=== PATIENT | female | born 2000 | race Caucasian/White ===

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

== ENCOUNTER 2021-07-20 07:35 | Outpatient (CLI) | payer BC, SELFPAY ==
--- NOTE | ~2021-07-20 | US_ITS ---
EXAMINATION: US right upper quadrant EXAM DATE: 07/20/2021 08:03 INDICATION: Right upper quadrant pain. TECHNIQUE: Multiple grayscale and Doppler images of the abdomen right upper quadrant were obtained (b y a technologist who performed the scan) and subsequently reviewed. Comparison is made to prior exami nation from 02/21/2018. FINDINGS: Pancreas obscured by bowel gas. The liver has normal echogenicity and contour. There are no focal l iver lesions identified. There is no evidence of intrahepatic biliary duct dilation. Portal venous flow was seen in the hepatopedal, normal direction and has normal Doppler waveform. No right-sided hydronephrosis. Common bile duct measures 6 mm, which is upper limits of normal. There is possible nonobstructing cho ledocholithiasis. The gallbladder wall is normal in thickness, with expected amount of distention. N o sonographic evidence of pericholecystic fluid. There is cholelithiasis. Technologist performing exam reports patient did not demonstrate sonographic Gómez's sign. Please note that this sign is le ss reliable in patients who have received pain medication. IMPRESSION: Cholelithiasis, possible choledocholithiasis. Common bile duct upper limits of normal. If symptoms persist, consider MRCP. Reviewed, dictated and finalized at location A. CUTTER IMPRESSION: Cholelithiasis, possible choledocholithiasis. Common bile duct uppe r limits of normal. If symptoms persist, consider MRCP.
== END 2021-07-20 07:36 | disposition home or self-care (01) ==
LOC: ANHIMG 07:37
PROVIDERS: PCP Family Medicine; Visit Provider Physician Assistant
DX: R10.11 Right upper quadrant pain (principal); K80.20 Calculus of gallbladder without cholecystitis without obstruction
CPT/HCPCS: 76705

== ENCOUNTER 2021-08-28 09:03 | Outpatient (CLI) | payer BC, SELFPAY ==
[2021-08-28 10:48] LABS: Basophils Percent Auto 0.1 % (0.2-1.2); Eosinophils Percent Auto 0.4 % (0-4.4); Hematocrit 37.7 % (37.0-47.0); Immature Granulocyte Absolute 0.02 K/mm3 (0.00-0.031); Immature Granulocyte Percent A 0.3 % (0-0.5); Lymphocytes Absolute Auto 1.81 K/mm3 (0.9-3.2); Lymphocytes Percent Auto 26.9 % (18.3-44.2); Mean Corpuscular HGB Conc 34.5 g/dl (32-36); Mean Corpuscular Volume 89.8 fl (80-100); Mean Platelet Volume 9.3 fl (7.4-10.4); Monocytes Absolute Auto 0.4 K/mm3 (0.1-0.6); Monocytes Percent Auto 5.3 % (2.6-8.5); Neutrophils Absolute Auto 4.5 K/mm3 (1.3-6.7); Platelet Count Result 359 k/mm3 (150-375); Red Cell Distribution Width 12.3 % (11.5-14.5); White Blood Count 6.7 K/mm3 (4.5-10.0)
[2021-08-28 10:58] LABS: Alanine Aminotransferase 55 U/L (4-35); Albumin Level 4.2 g/dL (3.5-5.1); Alkaline Phosphatase 81 U/L (38-126); Amylase 90 U/L (30-110); Anion Gap 9 mmol/L (8-16); Aspartate Amino Transferase 41 U/L (14-36); Bilirubin,Total 0.3 mg/dL (0.2-1.3); Blood Urea Nitrogen 7 mg/dL (7-17); Calcium 9.5 mg/dL (8.4-10.2); Carbon Dioxide 22 mmol/L (22-30); Chloride 105 mmol/L (98-107); Estimated Glomerular Filt Rate > 60; Glucose 100 mg/dL (65-110); Lipase 75 U/L (23-300); Potassium 4.1 mmol/L (3.4-5.0); Sodium 136 mmol/L (137-145)
== END 2021-08-28 09:04 | disposition home or self-care (01) ==
LOC: ANHSURGERY 09:07
PROVIDERS: PCP Family Medicine; Visit Provider Surgery
DX: Z01.818 Encounter for other preprocedural examination (principal); K80.10 Calculus of gallbladder with chronic cholecystitis without obstruction
CPT/HCPCS: 36415; 80053; 82150; 83690; 85025

== ENCOUNTER 2021-08-29 01:07 | Day surgery (SDC) | payer BC, SELFPAY ==
[2021-08-22 14:17] VITALS: BMI 33.3
--- NOTE | 2021-08-22 14:41 | PC.NURSE ---
Report to the Outpatient Waiting Room, entrance under the green pavilion located off [facility], at time 10:00 on date 08/29/21. OR Time: 12:00. - You will be asked a series of questions to screen for COVID 19 for your protection. - A mask is required within the hospital. - No visitors are allowed at this time. Preoperative COVID Testing Requirements: No COVID Test needed if: (proof is required; if not received patient will have Rapid Test prior to entry) - Patient has received COVID Vaccine at least 14 days prior to procedure date or - Patient has positive COVID test result within last 90 days of surgery date. COVID Test needed if above criteria is not met Patients may have clear liquids (water, carbonated beverages, clear teas, apple juice) until 3 hours prior to surgery (9:00) with a maximum of 20 ounces. - No food from midnight until time of surgery Take the following medications with a SIP of water the morning of surgery: CONTROL PILL, PAIN PILL (IF NEEDED) Medications to discontinue per physician: VITAMINS/SUPPLEMENTS Date to take last dose: 08/26/21 Please no make-up, nail filipino, hairspray, perfume, deodorant, or body powder the day of surgery. No jewelry (including any body piercings) or valuables the day of surgery, leave them at home. Please take a shower or bath the night before, or the morning of, surgery with an antibacterial soap. Wear comfortable, loose fitting clothing. HIBICLENS SHOWER - Jewelry must be removed prior to entering the operating room. Rings and piercings that are not removed may be cut off. - The hospital will not accept responsibility for valuables. - Please leave all valuables, including medications, at home the day of surgery. If you are going home after surgery, a licensed cdl dedicated truck driver must drive you home. - NO public transportation without another adult. - We recommend that an adult stay with you for 24 hours following discharge. - We also recommend that you do not drive, make important decision, drink alcoholic beverages, or take any drugs that were not prescribed by your health care provider for at least 24 hours after your discharge time. Follow any additional instructions given to you from your surgeon. Telephone instructions given to TEVIN SHIRLEY and asked if any additional questions and then verbalized understanding. Patient advised to call surgeon office or pre surgery nurse liaison [phone] if any additional questions.
[2021-08-29] VITALS (7 sets, daily range): BP systolic 106–122; BP diastolic 61–88; PULSE 73–86; RESP 14–18; TEMP 36.8–36.9; O2SAT 96–99
--- NOTE | 2021-08-29 08:29 | P.PNAN_ITS ---
Anes - Initial Pre Proc Eval Procedure: Operation Date: 08/29/21 12:00 Proposed Procedures p Laparoscopic Cholecystectomy Possible Intraoperative Cholangiogram, Possible Open - Carrillo Santillan MD Date/Time: 08/29/21 08:29 Surgeon: Carrillo Santillan MD Pre Op Diagnosis: chronic cholecystitis with cholelithiasis Patient Data Age: 21 Gender: F Height: 1.65 m Weight: 90.72 kg Allergies Allergy/AdvReac Type Severity Reaction Status Date / Time No Known Allergies Allergy Unknown Verified 08/29/21 10:14 Home Medications Medication Instructions Recorded Confirmed Type multivitamin 1 tablet PO DAILY 08/03/19 08/29/21 History hydrocodone 5 mg-acetaminophen 325 1 tablet PO Q6H PRN #12 tablet 08/03/21 08/29/21 Rx mg tablet ondansetron 8 mg PO DAILY PRN 08/22/21 08/29/21 History norethindrone 1 mg-ethinyl 1 tablet PO DAILY #84 tablet 08/29/21 08/29/21 Rx estradiol 20 mcg (24)-iron 75 mg (4) tablet Patient hx anesthesia problems: none Family hx anesthesia problems: none Results Review: All pre-operative results and documents have been reviewed as part of the pre-operative evaluation. [facility] Past Medical History Medical History History of concussion x2, frequent headaches Surgical History Surgical History History of tonsillectomy [place] teeth extracted Family History Family History Grandparent Hypertension Family history of malignant neoplasm of breast in first degree relative Social History Social History Smoking status: Never smoker Second hand tobacco smoke exposure: No Alcohol intake: never Substance use: never Substance use type: does not use Living arrangements: with family Gender identity (if verbalized by the patient): Female Spiritual care concerns: No Anes - Eval Final PreProcedure Day of Procedure 08/29/21 08:29 Patient weight: obese Heart: regular rate and rhythm Lungs: clear to auscultation and normal air movement Airway: Mallampati scale class II Neurological: alert and oriented Last oral intake: >/= 8 hours ASA classification: II Emergent: no Anesthetic plan: proceed Anesthesia type and monitoring: general ETT and standard monitoring Results Review: All pre-operative results and documents have been reviewed as part of the pre-operative evaluation. Informed Consent: The patient's anesthetic plan and its attendant risks and benefits were discussed with the patient/family/POA. Questions were solicited and answers provided to the satisfaction of the patient/family/POA.
[2021-08-29] MEDS: ACETAMINOPHEN 500 MG TABLET 1000 MG PO (10:18)
[2021-08-29] MEDS: LACTATED RINGERS 1,000 ML 30 ML IV CONT ×2 (10:44→14:03)
[2021-08-29] MEDS: KETOROLAC 15 MG/ML VIAL (*BKC) IV PUSH (10:45)
--- NOTE | 2021-08-29 11:58 | WPDHPUPDATE1 ---
History and Physical Update Update Date/Time: 08/29/21 11:58 History and Physical has been reviewed, including an updated exam of the patient. There are changes in the patient's condition. She had a short episode of RUQ pain last Fri after eating a cup cake. Risks, benefits, and alternatives have been discussed and questions answered. Patient agrees to proceed with procedure.
[2021-08-29] MEDS: ceFAZolin 2 GM/D5W 50 ML 2 GM/50 ML BAG IVPB (12:00)
[2021-08-29] MEDS: BUPIVACAINE/EPINEPHRINE 0.5% 30 ML VIAL INFILTRATE (12:26)
--- NOTE | 2021-08-29 14:00 | P.OP_ITS ---
Procedure Note - Detailed Date of Procedure 08/29/21 Pre-op Diagnosis chronic cholecystitis with cholelithiasis Post-op Diagnosis same Procedure Performed Laproscopic Cholecystectomy Surgeon Carrillo Santillan MD Finishing Range Operator Lesly ENGLAND. OR speech language pathologist assistant Anesthesia general Indications See office H& P. Patient has chronic cholecystitis with cholelithiasis and intermittent abdominal pain that lasts anywhere from 2 hours to 24 hours. Ultrasound showed gallstones and therefore was recommended that she consider having a laparoscopic cholecystectomy to remove the source of stones and possibly prevent further complications. Findings Normal appearing gallbladder but upon removal definitely palpable stones within it. These were also seen through the wall as we were compressing it to take it up and out through the umbilicus. Description of Procedure Patient was seen preoperatively in the holding area and risks, benefits and alternatives confirmed. Patient was taken to the operating room and general anesthesia was induced. A time out was then preformed with the surgery team confirming patient and site of surgery. The abdomen was prepped and draped in the usual sterile fashion. Incision was made just below the umbilicus with an 11 blade knife. I placed 2 stay sutures of O- Vicryl on either side of the mid- line fascia beneath the umbilicus and was then able to slide in the Gonzalez cannula through the fascial defect into the peritoneum. First under low flow and then under high flow the abdomen was insufflated with carbon dioxide never exceeding a pressure of 14. Three 5 mm trocars were then introduced under direct vision. The following trocars were introduced under direct vision: a 5 mm in the epigastrium and two 5 mm trocars along the right costal margin laterally in the subcostal area. There were not any adhesions to the underside of the gallbladder. I then carefully used the L- shaped cautery and the [place] dissector to dissect out the triangle of [place]. I then was able to dissect out both the cystic duct and cystic artery and identify a window of safety. The gall bladder was grasped and the cystic duct and artery were dissected free and clipped with an 5 mm endo-clip strategy specialist. The cystic duct and artery were clipped with use of 2 clips on the patient's side 1 on the gallbladder side utilizing a 5 mm endoclip-strategy specialist. The cystic duct was then transected. The cystic artery was also transected at this point. The gall bladder was removed using electrocautery and then removed from the abdomen using a large 10 mm grasper via the umbilical incision. The trocars were removed visualizing hemostasis and the remaining gas evacuated. The large trocar site at the umbilicus was closed with use of the 2 stay sutures of 0 Vicryl mentioned above and also a figure of 8 O-Vicryl suture. The 2 stay sutures mentioned above on either side of the fascia were also tied together to help approximate this midline fascia. Further local anesthetic was placed into each incision for postop pain control. The skin incisions were closed with subcuticular suture of 4-0 Monocryl. Surgical glue then was applied to all the incisions. Patient tolerated the procedure well was taken to the recovery room in good condition. Implants none Estimated Blood Loss 15 Packing No Pathology yes (Gallbladder) Complications No immediate complications Condition stable Disposition PACU
[2021-08-29] MEDS: fentaNYL CITRATE INJ (*CRX) 100 MCG/2 ML VIAL 25 MCG IV PUSH ×2 (14:15→14:20)
[2021-08-29] MEDS: ONDANSETRON INJ 4 MG/2 ML VIAL IV PUSH (14:33)
== END 2021-08-29 16:00 | disposition home or self-care (01) ==
PROVIDERS: PCP Family Medicine; Visit Provider Surgery
PROC: 0FT44ZZ Resection of Gallbladder, Percutaneous Endoscopic Approach (ICD-10-PCS; CPT 47562; principal; 2021-08-29 12:00)
DX: K80.10 Calculus of gallbladder with chronic cholecystitis without obstruction (principal); R10.11 Right upper quadrant pain; E66.9 Obesity, unspecified; Z68.37 Body mass index [BMI] 37.0-37.9, adult
CPT/HCPCS: 47562; 88304; A9270; J0330; J0690; J1100; J1885; J2250; J2405; J2704; J2710; J3010; J7030; J7120; Q9966

== ENCOUNTER 2021-12-11 09:13 | Outpatient (CLI) | payer BC, SELFPAY ==
--- NOTE | ~2021-12-11 | XR_ITS ---
EXAMINATION: XR finger 4th LT min 2V DATE: 12/11/2021 09:41 INDICATION: Left hand fourth digit deformity. TECHNIQUE: 4 views of left hand fourth digit were obtained. COMPARISON: Left hand fourth digit radiographs 03/04/2020 FINDINGS: Bone alignment is normal. No acute fracture. There is an old healed fracture deformity of f ourth distal phalanx. Joint spaces are normal. IMPRESSION: 1. Old healed fracture deformity of fourth distal phalanx. Reviewed, dictated and finalized at location A.
== END 2021-12-11 09:14 | disposition home or self-care (01) ==
PROVIDERS: PCP Family Medicine; Visit Provider Plastic Surgery
DX: S62.635S Displaced fracture of distal phalanx of left ring finger, sequela (principal)
CPT/HCPCS: 73140

== ENCOUNTER 2022-01-25 00:47 | Day surgery (SDC) | payer BC, SELFPAY ==
[2022-01-18 17:02] VITALS: BMI 33.3
--- NOTE | 2022-01-18 17:15 | SUR.PREOP ---
Report to the Outpatient Waiting Room, entrance under the green pavilion located off [facility], at time 0730 on date 01/25/2022. OR Time: 0930. - You and your visitor will be asked a series of questions to screen for COVID 19 for your protection. - Only one visitor is allowed at this time. - The patient visitor is requested to leave or wait in car when not with patient. - A mask is required within the hospital. Patients may have clear liquids (water, carbonated beverages, clear teas, apple juice) until 0630- 3 hours prior to surgery with a maximum of 20 ounces. - No food from midnight until time of surgery - Infants may have breast milk until 4 hours before surgery, infant formula 6 hours prior to surgery. - Children will be allowed to drink immediately following surgery. If applicable, please bring a bottle or sippy cup to assist with drinking. Juice, water, soda, and popsicles are readily available. For infants on formula, please bring formula the day of surgery. Pacifiers are allowed. Take the following medications with a SIP of water the morning of surgery: NA Medications to discontinue per physician Fish oil Date to take last dose 01/22/22 Please no make-up, nail vincentian, hairspray, perfume, deodorant, or body powder the day of surgery. No jewelry (including any body piercings) or valuables the day of surgery, leave them at home. Please take a shower or bath the night before, or the morning of, surgery with an antibacterial soap. Wear comfortable, loose fitting clothing. Children are encouraged to wear pajamas. - Jewelry must be removed prior to entering the operating room. Rings and piercings that are not removed may be cut off. - The hospital will not accept responsibility for valuables. - Please leave all valuables, including medications, at home the day of surgery. If you are going home after surgery, a licensed jinriksha driver must drive you home. - NO public transportation without another adult. - We recommend that an adult stay with you for 24 hours following discharge. - We also recommend that you do not drive, make important decision, drink alcoholic beverages, or take any drugs that were not prescribed by your health care provider for at least 24 hours after your discharge time. For Pediatric surgeries, we recommend two adults accompany the child home (only one inside the building at this time). Follow any additional instructions given to you from your surgeon. If you or anyone in your household have experienced Covid symptoms in the past week, please notify your surgeon or the nurse liaison at the phone number below for possible testing. Telephone instructions given to ____Patient and asked if any additional questions and then verbalized understanding. Patient advised to call surgeon office or pre surgery nurse liaison [phone] if any additional questions.
--- NOTE | ~2022-01-25 | XR_ITS ---
EXAMINATION: XR surgery orthopedic DATE: 01/25/2022 11:13 INDICATION: ORIF left fourth finger TECHNIQUE: 6 fluoroscopic images of the left fourth finger were obtained during procedure performed neal Toledo. Radiologist was not present for the imaging or procedure. The amount of fluoroscopy time used during this procedure was 0.3 minutes. COMPARISON: Radiographs dated 12/11/2021 FINDINGS: Initial image demonstrates a needle marking the site of an old healed fracture at the distal diaphysi s of the left fourth distal phalanx which is healed with mild apex dorsal angulation. Subsequent imag es demonstrate a closing wedge osteotomy along the dorsal margin of the healed fracture. Subsequent i mages demonstrate reduction of the osteotomy defect with now essentially normal alignment of the axis of the distal phalanx. The reduced osteotomy is fixed with a percutaneous K wire which extends from the tuft of the distal phalanx across the distal interphalangeal joint into the volar aspect of the h ead and neck of the middle phalanx. No new fractures identified. Joint spaces appear otherwise unrema rkable. IMPRESSION: 1. 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 See procedure note for further detail. Reviewed, dictated and finalized at location A. IMPRESSION: 1. Fluoroscopy utilized during closing wedge osteotomy site of a chronic nonuni juan pablo fracture of the fourth distal phalanx with essentially anatomic alignment o f the distal phalanx post reduction and percutaneous pin fixation. See procedur e note for further detail.
--- NOTE | 2022-01-25 07:08 | WPDHPUPDATE1 ---
History and Physical Update Update Date/Time: 01/25/22 07:08 History and Physical has been reviewed, including an updated exam of the patient. There are NO changes in the patient's condition. Risks, benefits, and alternatives have been discussed and questions answered. Patient agrees to proceed with procedure.
[2022-01-25 07:40] VITALS: BP 117/70; PULSE 88; RESP 18; TEMP 36.3; O2SAT 99
[2022-01-25] MEDS: LACTATED RINGERS 1,000 ML 30 ML IV CONT ×2 (08:10→11:24)
--- NOTE | 2022-01-25 09:21 | WPDANESEPPF ---
Anes - Initial Pre Proc Eval Procedure: Operation Date: 01/25/22 09:30 Proposed Procedures p Closing Wedge Osteotomy or [place] Re-Shaping of Left Fourth Distal Phalanx [place] - Sharan Toledo MD Date/Time: 01/25/22 09:21 Surgeon: Sharan Toledo MD Pre Op Diagnosis: Nail Deformity Left Ring Finger Patient Data Age: 21 Gender: F Height: 1.65 m Weight: 103.8 kg Last Vital Signs Temp 97.3 F L 01/25/22 07:40 Pulse 88 01/25/22 07:40 Resp 18 01/25/22 07:40 BP 117/70 01/25/22 07:40 Pulse Ox 99 01/25/22 07:40 O2 Del Method Room Air 01/25/22 07:40 Allergies Allergy/AdvReac Type Severity Reaction Status Date / Time No Known Allergies Allergy Unknown Verified 01/25/22 08:15 Home Medications Medication Instructions Recorded Confirmed Type norethindrone 1 mg-ethinyl 1 tablet PO DAILY #84 tabs 11/14/21 01/25/22 Rx estradiol 20 mcg (24)-iron 75 mg (4) tablet omega-3 fatty acids 1 cap PO DAILY 01/18/22 01/25/22 History Patient hx anesthesia problems: none Family hx anesthesia problems: none Results Review: All pre-operative results and documents have been reviewed as part of the pre-operative evaluation. [facility] Past Medical History Medical History History of concussion x2, frequent headaches Surgical History Surgical History History of tonsillectomy Hx laparoscopic cholecystectomy Lap brian with poss IOC 08/29/21 [place] teeth extracted Family History Family History Grandparent Hypertension Family history of malignant neoplasm of breast in first degree relative Social History Social History Smoking status: Never smoker Second hand tobacco smoke exposure: No Alcohol intake: never Substance use: never Substance use type: does not use Living arrangements: with family Gender identity (if verbalized by the patient): Female Spiritual care concerns: No Anes - Eval Final PreProcedure Day of Procedure 01/25/22 09:21 Patient weight: obese Heart: regular rate and rhythm Lungs: clear to auscultation Neurological: alert and oriented Last oral intake: >/= 8 hours ASA classification: II Emergent: no Anesthetic plan: proceed Anesthesia type and monitoring: general GIVS and standard monitoring Results Review: All pre-operative results and documents have been reviewed as part of the pre-operative evaluation. Informed Consent: The patient's anesthetic plan and its attendant risks and benefits were discussed with the patient/family/POA. Questions were solicited and answers provided to the satisfaction of the patient/family/POA.
[2022-01-25] MEDS: ceFAZolin 2 GM/D5W 50 ML 2 GM/50 ML BAG IVPB (09:30)
[2022-01-25] MEDS: BACITRACIN ZINC OINTMENT 0.9 GRAM PACKET 1 PACKET TOPICAL (11:15)
[2022-01-25 11:23] VITALS: BP 96/50; PULSE 89; RESP 16; TEMP 36.2; O2SAT 97
--- NOTE | 2022-01-25 11:42 | W.PM.PROC2 ---
Procedure Note - Detailed Date of Procedure 01/25/22 Pre-op Diagnosis Nail Deformity Left Ring Finger Post-op Diagnosis Other (Nail deformity of the left ring finger. 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 Closing wedge osteotomy of the distal phalanx left ring finger with internal fixation. 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 She was taken to the operating room where she was placed supine on the operating table. She was given IV sedation. The extremity was prepped and draped in usual fashion. The digit was blocked with 1% lidocaine with epinephrine. A ring tourniquet was placed on the finger. The nail was removed with the use of a Normanna elevator. The nail was placed in saline during the procedure until it was used later.The nail bed appeared to be in good condition generally. There was noted a diagonal wound near the lunula. This appeared to be part of the chronic condition. Both edges of the nail bed wound were adhered to the bone but with a slight step-off between the 2. It appeared that this may have been the origin of the chronic deformity. C-arm images were made to identify the location of the ventral curving malunion of the distal phalanx. A full length midline incision was made in the nail bed extending beyond the hyponychium and onto the tip. The nail bed was carefully elevated off the phalanx. Nylon retention sutures were placed on both sides of that. A 2 and half to 3 mm transverse wedge osteotomy was marked out. The oscillating saw was used to create the osteotomy. A complete transection was obtained allowing positioning of the distal fragment. Satisfactory angle of the osteotomy was obtained and a 0.035 in C wire was driven retrograde out the distal fragment and then proximally down the proximal fragment and across the distal interphalangeal joint. This provided excellent improvement in the contour of the distal phalanx. The reduction was stable and the pin was cut short beneath the skin the nail bed was repaired with 5 0 chromic suture. The nail plate was debrided and placed under the nail fold covering the length of the nail bed. A jefry-cross 4-0 nylon suture was placed to retain the in position. A small bandage was applied the tourniquet was released. Patient was transported from the operating room in stable condition. Estimated Blood Loss -5.0 Drains No Packing No Pathology None sent Complications No immediate complications Condition Stable Disposition Same day
[2022-01-25 11:50] VITALS: BP 107/69; PULSE 77; RESP 20
[2022-01-25 12:15] VITALS: BP 102/53; PULSE 62; RESP 20
== END 2022-01-25 12:20 | disposition home or self-care (01) ==
PROVIDERS: PCP Family Medicine; Visit Provider Plastic Surgery
PROC: (CPT 26567; principal; 2022-01-25 09:30)
DX: L60.8 Other nail disorders (principal); S62.63 Displaced fracture of distal phalanx of finger; W54.0XXD Bitten by dog, subsequent encounter; E66.9 Obesity, unspecified; Z68.38 Body mass index [BMI] 38.0-38.9, adult
CPT/HCPCS: 26567; 11730; A9270; C1713; J0690; J2250; J2704; J3010; J7120

== ENCOUNTER 2022-03-06 11:42 | Outpatient (CLI) | payer BC, SELFPAY ==
--- NOTE | ~2022-03-06 | XR_ITS ---
XR finger 4th LT min 2V DATE: 03/06/2022 12:03 INDICATION: Distal phalanx fracture TECHNIQUE: 3 views COMPARISON: 12/11/2021 left fourth finger FINDINGS: There is a transverse osteotomy at the neck of the distal phalanx, with K wire extending lo ngitudinally through the entire length of the distal phalanx, terminating at the anterior neck of the middle phalanx. IMPRESSION: K wire fixation at transverse osteotomy at the neck of distal phalanx Reviewed, dictated and finalized at location A. IMPRESSION: K wire fixation at transverse osteotomy at the neck of distal phala nx
== END 2022-03-06 11:43 | disposition home or self-care (01) ==
PROVIDERS: PCP Family Medicine; Visit Provider Plastic Surgery
DX: S62.635A Displaced fracture of distal phalanx of left ring finger, initial encounter for closed fracture (principal); X58.XXXA Exposure to other specified factors, initial encounter
CPT/HCPCS: 73140

== ENCOUNTER 2022-03-28 10:07 | Outpatient (CLI) | payer BC, SELFPAY ==
--- NOTE | ~2022-03-28 | XR_ITS ---
EXAM: XR finger 4th LT min 2V DATE: 03/28/2022 10:26 HISTORY: FX L RING DISTAL PHALANX;S/P CORRECTION OSTEOTOMY, F/U . COMPARISON: 03/06/2022. FINDINGS: Pin fixation of the left fourth distal phalangeal osteotomy and DIP. Subtle interval healin g change. Normal mineralization. No fracture or dislocation. No lytic or blastic lesion. Joint spaces are maintained. No erosion or periosteal change. Soft tissues within normal limits. IMPRESSION: Likely subtle interval healing change present in the left fourth distal phalangeal osteot carole. Reviewed, dictated and finalized at location K. IMPRESSION: Likely subtle interval healing change present in the left fourth di stal phalangeal osteotomy.
== END 2022-03-28 10:08 | disposition home or self-care (01) ==
PROVIDERS: PCP Family Medicine; Visit Provider Plastic Surgery
DX: S62.665A Nondisplaced fracture of distal phalanx of left ring finger, initial encounter for closed fracture (principal)
CPT/HCPCS: 73140

== ENCOUNTER 2022-04-19 11:19 | Outpatient (CLI) | payer BC, SELFPAY ==
--- NOTE | ~2022-04-19 | XR_ITS ---
EXAMINATION: XR finger 4th LT min 2V INDICATION: Fourth distal phalanx fracture follow-up TECHNIQUE: Four views of the left fourth finger are obtained. COMPARISON: 03/28/2022 FINDINGS: There is an unchanged percutaneous pin through an osteotomy of the fourth distal phalanx wh ich ends with its tip in the fourth middle phalanx. Alignment is unchanged. There is minimal calcifie d callus at the osteotomy site without significant change. The joint spaces are unremarkable IMPRESSION: 1. Percutaneously pinned osteotomy of the fourth distal phalanx without significant change. Reviewed, dictated and finalized at location A. IMPRESSION: 1. Percutaneously pinned osteotomy of the fourth distal phalanx without signifi cant change.
== END 2022-04-19 11:20 | disposition home or self-care (01) ==
PROVIDERS: PCP Family Medicine; Visit Provider Plastic Surgery
DX: S62.665D Nondisplaced fracture of distal phalanx of left ring finger, subsequent encounter for fracture with routine healing (principal); X58.XXXD Exposure to other specified factors, subsequent encounter
CPT/HCPCS: 73140

== ENCOUNTER 2022-05-17 11:18 | Outpatient (CLI) | payer BC, SELFPAY ==
--- NOTE | ~2022-05-17 | XR_ITS ---
EXAMINATION: XR finger 4th LT min 2V INDICATION: Left fourth finger fracture follow-up TECHNIQUE: Four views of the left fourth finger are obtained. COMPARISON: 04/19/2022 FINDINGS: An osteotomy is again noted in the fourth distal phalanx. Calcified callus at the fracture site is minimally changed. The percutaneous pin has been removed. The soft tissues are unremarkable. No additional osseous abnormality is identified. IMPRESSION: 1. Osteotomy of the fourth distal phalanx with interval removal of the percutaneous pin, otherwise no significant change. Reviewed, dictated and finalized at location A. IMPRESSION: 1. Osteotomy of the fourth distal phalanx with interval removal of the percutan eous pin, otherwise no significant change.
== END 2022-05-17 11:19 | disposition home or self-care (01) ==
PROVIDERS: PCP Family Medicine; Visit Provider Plastic Surgery
DX: S62.665D Nondisplaced fracture of distal phalanx of left ring finger, subsequent encounter for fracture with routine healing (principal); X58.XXXD Exposure to other specified factors, subsequent encounter
CPT/HCPCS: 73140

== ENCOUNTER 2022-08-16 10:32 | Outpatient (CLI) | payer BC, SELFPAY ==
[2022-08-16 11:20] LABS: Hematocrit 41.7 % (37.0-47.0); Mean Corpuscular HGB Conc 33.6 g/dl (32-36); Mean Corpuscular Hemoglobin 30.9 pg (26-34); Mean Corpuscular Volume 92.1 fl (80-100); Mean Platelet Volume 9.9 fl (7.4-10.4); Platelet Count Result 261 k/mm3 (150-375); Red Blood Count 4.53 M/mm3 (4.2-5.4); Red Cell Distribution Width 13.2 % (11.5-14.5); White Blood Count 9.8 K/mm3 (4.5-10.0)
== END 2022-08-16 10:33 | disposition home or self-care (01) ==
LOC: ANHLAB 10:34
PROVIDERS: PCP Physician Assistant; Visit Provider Nurse Practitioner
DX: K92.1 Melena (principal)
CPT/HCPCS: 36415; 85027

== ENCOUNTER 2022-09-21 01:19 | Day surgery (SDC) | payer BC, SELFPAY ==
[2022-09-05 12:20] VITALS: BMI 33.3
[2022-09-21 08:20] VITALS: BP 141/90; PULSE 89; RESP 18; TEMP 36.3; O2SAT 99; BMI 39.2
--- NOTE | 2022-09-21 08:33 | PM.HPGS ---
History of Present Illness History of Present Illness Consent: Risks, benefits, and alternatives have been discussed and questions answered. Patient agrees to proceed with procedure. Chief complaint: hematochezia Narrative: Lillian Kamara is a 22 year old female with intermittent rectal bleeding, never had colonoscopy Review of Systems Constitutional: Constitutional: Denies headache(s) and Denies weakness Eyes: Eyes: Denies blurry vision ENT: Reports Normal hearing present, Denies headache(s) and Denies neck pain Cardiovascular: Cardiovascular: Denies chest pain and Denies dyspnea Respiratory: Respiratory: Denies dyspnea Gastrointestinal: Gastrointestinal: Reports no additional gastrointestinal complaints Genitourinary: Genitourinary: Denies dysuria Musculoskeletal: Musculoskeletal: Denies neck pain Integumentary/Breasts: Skin/Breast: Denies dry skin Neurologic: Reports Normal hearing present, Denies headache(s) and Denies weakness Psychiatric: Psychiatric: Denies anxiety Endocrine: Endocrine: Denies change in body appearance Hematologic/Lymphatic: Hematologic/Lymphatic: Denies easy bleeding Allergic/Immunologic: Allergic/Immunologic: Denies urticaria PMFSH Past Medical History Medical History (Updated 09/21/22 @ 08:34 by Arpit Medina MD) Chronic diarrhea Hematochezia History of concussion x2, frequent headaches Rectal bleeding Surgical History Surgical History History of tonsillectomy Hx laparoscopic cholecystectomy Lap brian with poss IOC 08/29/21 [place] teeth extracted Family History Family History Grandparent Hypertension Family history of malignant neoplasm of breast in first degree relative Social History Social History Smoking status: Never smoker Second hand tobacco smoke exposure: No Alcohol intake: never Substance use: never Substance use type: does not use Lack of Transportation: No Lack of Food: Never True Current Housing: I Have Housing Concerned About Future Housing: No Difficulty Paying Gas/Electric Bills: No Difficulty Paying for Meds: No Currently Unemployed: Decline to Answer Education: Decline to Answer Difficulty w/ Childcare or Family Care: Decline to Answer Living arrangements: with family Gender identity (if verbalized by the patient): Female Spiritual care concerns: No Meds Home Medications and Allergies Home Medications Medication Instructions Recorded Confirmed Type norethindrone 1 mg-ethinyl 1 tablet PO DAILY #84 tabs 11/14/21 09/21/22 Rx estradiol 20 mcg (24)-iron 75 mg (4) tablet Allergies Allergy/AdvReac Type Severity Reaction Status Date / Time No Known Allergies Allergy Unknown Verified 09/21/22 08:28 Exam Const: General: comfortable and no acute distress HENMT: Face/Nose/Sinus: Normal nares present Eyes: General: appearance normal, both eyes and all related structures Neck: Neck: no JVD Resp: Auscultation: clear to auscultation bilaterally Cardio: Rate: regular rate Rhythm: regular rhythm GI: Inspection: non-distended GI Palp: Yes Soft to palpation Skin: General skin exam: normal color Neuro: General: gait normal Speech: normal speech Extrem: General: normal to inspection Psych: Mental Status: mental status grossly normal Assessment and Plan Assessment and plan (1) Rectal bleeding: Code(s): K62.5 - Hemorrhage of anus and rectum Status: Acute Assessment and Plan: colonoscopy, if we find internal hemorrhoids also will treat with IRC
[2022-09-21] MEDS: LACTATED RINGERS 1,000 ML 150 ML IV CONT (08:38)
--- NOTE | 2022-09-21 08:44 | P.PNAN_ITS ---
Anes - Initial Pre Proc Eval Procedure: Operation Date: 09/21/22 09:30 Proposed Procedures p Colonoscopy With Possible - Arpit Medina MD s [facility] Hemorrhoid Treatment - Arpit Medina MD Date/Time: 09/21/22 08:44 Surgeon: Arpit Medina MD Pre Op Diagnosis: hematochezia Patient Data Age: 22 Gender: F Height: 1.65 m Weight: 106.8 kg Last Vital Signs Temp 97.3 F L 09/21/22 08:20 Pulse 89 09/21/22 08:20 Resp 18 09/21/22 08:20 BP 141/90 H 09/21/22 08:20 Pulse Ox 99 09/21/22 08:20 O2 Del Method Room Air 09/21/22 08:20 Allergies Allergy/AdvReac Type Severity Reaction Status Date / Time No Known Allergies Allergy Unknown Verified 09/21/22 08:28 Home Medications Medication Instructions Recorded Confirmed Type norethindrone 1 mg-ethinyl 1 tablet PO DAILY #84 tabs 11/14/21 09/21/22 Rx estradiol 20 mcg (24)-iron 75 mg (4) tablet Patient hx anesthesia problems: none Family hx anesthesia problems: none Results Review: All pre-operative results and documents have been reviewed as part of the pre- operative evaluation. [facility] Past Medical History Medical History (Updated 09/21/22 @ 08:34 by Arpit Medina MD) Chronic diarrhea Hematochezia History of concussion x2, frequent headaches Rectal bleeding Surgical History Surgical History History of tonsillectomy Hx laparoscopic cholecystectomy Lap brian with poss [facility] 08/29/21 [place] teeth extracted Family History Family History Grandparent Hypertension Family history of malignant neoplasm of breast in first degree relative Social History Social History Smoking status: Never smoker Second hand tobacco smoke exposure: No Alcohol intake: never Substance use: never Substance use type: does not use Lack of Transportation: No Lack of Food: Never True Current Housing: I Have Housing Concerned About Future Housing: No Difficulty Paying Gas/Electric Bills: No Difficulty Paying for Meds: No Currently Unemployed: Decline to Answer Education: Decline to Answer Difficulty w/ Childcare or Family Care: Decline to Answer Living arrangements: with family Gender identity (if verbalized by the patient): Female Spiritual care concerns: No Anes - Eval Final PreProcedure Day of Procedure 09/21/22 08:44 Patient weight: obese Heart: regular rate and rhythm Lungs: clear to auscultation Airway: Mallampati scale class II Neurological: alert and oriented Last oral intake: >/= 8 hours ASA classification: II Emergent: no Anesthetic plan: proceed Anesthesia type and monitoring: general GIVS and standard monitoring Results Review: All pre-operative results and documents have been reviewed as part of the pre- operative evaluation. Informed Consent: The patient's anesthetic plan and its attendant risks and benefits were discussed with the patient/family/POA. Questions were solicited and answers provided to the satisfaction of the patient/family/POA.
[2022-09-21 09:00] VITALS: BP 106/72; PULSE 87; RESP 24; O2SAT 97
--- NOTE | 2022-09-21 09:00 | W.PM.PROC2 ---
Procedure Note - Detailed Date of Procedure 09/21/22 Pre-op Diagnosis hematochezia Post-op Diagnosis Same Procedure Performed IRC of internal hemorrhoids Surgeon Arpit Medina MD Anesthesia MAC (patient also had a colonoscopy) Description of Procedure found grade II internal hemorrhoids after using anoscopy, no bleeding, no fissures. Then I introduced IRC probe and hemorrhoids treated 1.5 seconds x5 Complications No immediate complications Condition Stable
[2022-09-21 09:10] VITALS: BP 111/75; PULSE 85; RESP 20; O2SAT 99
[2022-09-21 09:20] VITALS: BP 124/70; PULSE 87; RESP 20; O2SAT 99
--- NOTE | 2022-09-21 09:31 | SUR.PHASEII ---
Patient delayed in discharge due to mother also having a procedure done with Dr. Howard today and they have the same drivers.
== END 2022-09-21 10:20 | disposition home or self-care (01) ==
PROVIDERS: PCP Physician Assistant; Visit Provider Internal Medicine Gastroenterology
PROC: 0DJD8ZZ Inspection of Lower Intestinal Tract, Via Natural or Artificial Opening Endoscopic (ICD-10-PCS; CPT 45378; principal; 2022-09-21 09:30)
PROC: (CPT 46930; 2022-09-21 09:30)
DX: K64.8 Other hemorrhoids (principal); E66.9 Obesity, unspecified; Z68.39 Body mass index [BMI] 39.0-39.9, adult
CPT/HCPCS: 46930; 45378; J2704; J7120

== ENCOUNTER 2024-12-03 08:53 | Emergency (ER) | payer BC, SELFPAY ==
--- NOTE | ~2024-12-03 | XR_ITS ---
Clinical Indication: Abdominal pain PA and lateral views of the chest: Comparison: 11/22/2022 Findings: The lungs are clear, without evidence of focal consolidation or pleural effusion. Cardiome diastinal silhouette is within normal limits. Bones and soft tissues are unremarkable. Impression: Normal chest. Reviewed, dictated and finalized at location . Impression: Normal chest.
--- NOTE | ~2024-12-03 | CT_ITS ---
EXAMINATION: CT abdomen pelvis w con DATE: 12/03/2024 09:58 INDICATION: Right upper quadrant abdominal pain. TECHNIQUE: Computed tomography (CT) of the abdomen and pelvis was performed with 100 mL Omnipaque-350 intravenous contrast. Automated exposure control and iterative reconstruction technique were employe d. The dose-length product was 392.05 mGy-cm. COMPARISON: None FINDINGS: Lung bases are clear. Heart size is normal. No pericardial or pleural effusion. Cholecystectomy clips the gallbladder fossa. Liver, spleen, pancreas, bilateral adrenal glands and kidneys are normal. Sma ll diverticulum along the descending colon without adjacent inflammatory stranding to suggest acute c olitis. Small bowel and appendix are normal. Bladder is normal. Anteverted uterus and bilateral adnex a are unremarkable. No free intraperitoneal gas or fluid. No pathologically enlarged abdominal or pel jag lymphadenopathy. Slight thoracolumbar dextrocurvature with mild thoracic spondylosis. IMPRESSION: 1. No acute intra-abdominal/pelvic process. Reviewed, dictated and finalized at location A.
[2024-12-03 08:56] VITALS: BP 122/70; PULSE 105; RESP 16; TEMP 36.8; O2SAT 100
--- OUTSIDE RECORDS SUMMARY | 2024-12-03 08:57 | XMS_ITS | Clinical Summary ---
Author Organization [facility] Address [facility] [place] [address] Care Team Providers Care Assistant Professor Of Art Name Role Phone Unavailable Primary Care Provider Unavailabl e Social History Tobacco Use Types Packs/Day Years Used Date Smoking Tobacco: Never Assessed Comments Unknown Sex and Gender Information Value Date Recorded Sex Assigned at Not on file Legal Sex Female 5:18 PM CDT Gender Identity Not on file Sexual Orientation Not on file Plan of Treatment Health Maintenance Due Date Last Done Comments Cervical Cancer Screening Pa p Smear (Age 21 to 29) Every 3 Years 2001 Cervical Cancer Screening 2001 Annual Physical 2004 HPV Vaccines (1 - 3-dose series) 2016 Meningococcal B Vaccine (1 o f 2 - Standard) 2017 Hepatitis C 2019 DTaP, Tdap and Td Vaccines ( 1 - Tdap) 2020 Hepatitis B Vaccines (1 of 3 - 19+ 3-dose series) 2020 COVID-19 Vaccine (1 - 2023-2 5 season) 2024 Meningococcal Vaccine Aged Out No caprice nicol eligible based on patient's age to complete this topic Pneumococcal Vaccine: Pediat rics (0 to 5 Years) and At-Risk Patients (6 to 49 Years) Aged Out No longer eligible b ased on patient's age to complete this topic RSV Immunizations Under 20 Months Aged Out No longer eligible based on patient's age to complete this topic
--- OUTSIDE RECORDS SUMMARY | 2024-12-03 08:57 | XMS_ITS | Referral Summary ---
Author Organization [facility] [address] Address [address] [place] [id number] Care Team Providers Care Shell Machine Operator Name Role Phone Unknown, Notinfile Primary Care Provider Unavail able Allergies No known active allergies Medications Blisovi 24 Fe 1 mg-20 mcg (24)/75 mg (4) per tablet Take 1 tablet by mouth daily 05/12/2022 Active docusate sodium (COLACE) 100 mg capsule docusate sodium 100 mg capsule TAKE 1 CAPSULE BY MOUTH EVERY DAY Active traMADoL (ULTRAM) 50 mg tablet tramadol 50 mg tablet TAKE 1 TABLET BY MOUTH EVERY 8 HOURS NEEDED Active triamcinolone (KENALOG) 0.1 % cream APPLY THIN COAT TO AFFECTED AREA TWICE A DAY 10/12/2022 Active Active Problems Problem Noted Date Diagnosed Date Right upper quadrant abdominal pain 04/17/2016 Overview (11/01/2017): Description: --rule out pancreatitis or cholelithiasis. Most likely musculoskeletal pain. Consider acid peptic disease or NSAID induced gastritis. Consider duodenitis. 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 Gender Identity Not on file Sexual Orientation Not on file Last Filed Vital Signs Vital Sign Reading Time Taken Comments Blood Pressure 114/78 07/10/2024 4:01 PM FIRE EXTINGUISHER SPRINKLER INSPECTOR Pulse 90 07/10/2024 4:01 PM FIRE EXTINGUISHER SPRINKLER INSPECTOR Temperature 36.6 C (97.9 F) 07/10/2024 4:01 PM FIRE EXTINGUISHER SPRINKLER INSPECTOR Respiratory Rate 20 07/10/2024 4:01 PM FIRE EXTINGUISHER SPRINKLER INSPECTOR Oxygen Saturation 98% 07/10/2024 4:01 PM FIRE EXTINGUISHER SPRINKLER INSPECTOR Inhaled Oxygen Concentration - - Weight 76.2 kg (168 lb) 07/10/2024 4:01 PM FIRE EXTINGUISHER SPRINKLER INSPECTOR Height 165.1 cm (5' 5 ) 07/27/2022 2:10 PM FIRE EXTINGUISHER SPRINKLER INSPECTOR Body Mass Index 27.96 07/27/2022 2:10 PM FIRE EXTINGUISHER SPRINKLER INSPECTOR Plan of Treatment Not on file Insurance [email or web address] [place] [email or web address] [place] [facility] Care Teams Shell Machine Operator Relationship Specialty Start Date End Date Unknown, Notinfile PCP - General 07/10/24
--- OUTSIDE RECORDS SUMMARY | 2024-12-03 08:57 | XMS_ITS | Clinical Summary ---
Author Organization [facility] [address] [place] Address [address] [place] [id number] Care Team Providers Care Carton Filler Name Role Phone Unknown, Notinfile Primary Care [...] NSAID induced gastritis. Consider duodenitis. Vomiting 04/17/2016 Family History Medical History Relation Name Comments Cholelithiasis Mother Gallstones - (Added by TW Conv) Relation Name Status Comments Mother Social History Tobacco Use Types Packs/Day Years Used Date Smoking Tobacco: Never Tobacco Cessation:Counseling Given: Not Answered Comments Unknown Sex and Gender Information Value Date Recorded Sex Assigned at Not on file Legal Sex Female 6:03 AM REGISTERED APPRAISER Gender Identity Not on file Sexual Orientation Not on file Obstetrics History Last Filed Vital Signs Vital Sign Reading Time Taken Comments Blood Pressure 114/78 07/10/2024 4:01 PM REGISTERED APPRAISER Pulse 90 07/10/2024 4:01 PM REGISTERED APPRAISER Temperature 36.6 C (97.9 F) 07/10/2024 4:01 PM REGISTERED APPRAISER Respiratory Rate 20 07/10/2024 4:01 PM REGISTERED APPRAISER Oxygen Saturation 98% 07/10/2024 4:01 PM REGISTERED APPRAISER Inhaled Oxygen Concentration - - Weight 76.2 kg (168 lb) 07/10/2024 4:01 PM REGISTERED APPRAISER Height 165.1 cm (5' 5 ) 07/27/2022 2:10 PM REGISTERED APPRAISER Body Mass Index 27.96 07/27/2022 2:10 PM REGISTERED APPRAISER Plan of Treatment Health Maintenance Due Date Last Done Comments Cervical Cancer Screening 2001 Depression Screening 2001 Hepatitis C Screening 2001 Meningococcal B Vaccine (1 o f 2 - Standard) 2017 Regular Well Visit/Exam 18-64 2019 DTaP/Tdap/Td Vaccine (7 - Td or Tdap) 03/02/2023 03/02/2013, 10/21/2006, 10/26/2002, Additional history exists Covid-19 Vaccine (2 - 2023-2 5 season) 2024 10/29/2020 Influenza Vaccine (#1) 2024 04/27/2022 Hepatitis B Screening Completed 02/05/2002 , 2001, 2001 Pneumococcal vaccine <65 Completed 003, 2001, 2001, Additional history exists Varicella Vaccines Completed 01/21/2008, 04/20/2002 HPV Vaccines Completed 10/27/2013, 04/21, 03/02/2013 Insurance [employer] [facility] [employer] [place] [employer] [place] Care Teams Carton Filler Relationship Specialty Start Date End Date Unknown, Notinfile PCP - General 07/10/24
--- OUTSIDE RECORDS SUMMARY | 2024-12-03 08:57 | XMS_ITS | Data Portability ---
Author Organization [place] - [facility], Main Office Address [address] [place] [address] Care Team Providers Care Chef German Name Role Phone SEVEN PATEL Primary Care Provider SEVEN PATEL Referring Provider [phone] Assessment No assessment recorded. Plan of Treatment Reminders Order Date Submit Date Provider Last Modified By Organization Details Last Modified Time Details Appointments None recorded. Lab HbA1c (hemoglobin A1c), blood 2023 024 [facility], [address] , [place], [address], 4 05:50:14 CBC w/ auto diff 2023 024 [facility], [address], [place], [address], 4 05:50:13 TSH, serum or plasma 2023 024 [facility], [address], [place], [address], 4 05:50:14 lipid panel, serum 2023 024 [facility], [address], [place], [address], 4 05:50:12 CMP, serum or plasma 2023 024 [facility], [address], [place], [address], 4 05:50:12 lipid panel, serum 2022 023 [facility], [address], [place], [address], 3 06:54:54 CMP, serum or plasma 2022 023 [facility], [address], [place], [address], 3 06:54:56 HbA1c (hemoglobin A1c), blood 2022 023 [facility], [address], [place], [address], 3 06:54:57 TSH, serum, reflex free T4 2022 023 [email or web address], [address], [place], [address], 3 09:26:56 Referral refining engineer referral - Please call patient to schedule an appointment . Thank you. 2023 024 [email or web address] Moses CHÁVEZM, [address] [facility], [address], [place], [address], 4 09:00:17 Procedures None recorded. Surgeries None recorded. Imaging None recorded. Medication Orders Mounjaro 7.5 mg/0.5 mL subcutaneou s pen injector 2023 024 [facility] #[id number], [address], [place], [address], 4 10:11:20 amoxicillin 875 mg-potassiu m clavulanate 125 mg tablet 2023 024 [facility] #[id number], [address], [place], [address], 4 10:11:21 cetirizine 10 mg tablet 2023 024 [id number], [address], [place], [address], 4 10:11:20 Mounjaro 5 mg/0.5 mL subcutaneou s pen injector 2022 023 [id number], [address], [place], [address], 4 17:38:01 Patient TargetsNo targets recorded. Patient InstructionsNo instructions recorded. 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 Thank you. Referring Physician: Seven Patel, Family Medicine, Encounter Date: 04/01/2024 Results Created Date Observation Date Name Description Value Unit Range Abnormal Flag Note LastModifiedBy Organization Detail LastModifiedTime 12/21/1912/20/2022 PPD (yolanda fied prote in deriv ative ), skin test TB negati ve Not Available [facility] [address], [place], [address], 12/18/2022 09:33:24 06/17/20 23 06/18/2023 LIPID PANEL , STAND RNADEE cholesterol, total 230 mg/dL <200 high Not Available [facility] [address] [address] [place], [address], 06/18/2023 06:54:54 06/17/20 23 06/18/2023 LIPID PANEL , STAND RANDEE HDL cholesterol 35 mg/dL > or = 50 low Not Available [facility] [address] [place], [address], 06/18/2023 06:54:54 06/17/20 23 06/18/2023 LIPID PANEL , STAND RANDEE triglyceride s 732 mg/dL <150 high If a non-f astin g speci men was colle cted, consi radha repea t trigl yceri de testi ng on a fasti ng speci men if clini liliane indic ated. Moses martinez et al. J. of Clin. Lipid ol. 2015; 9:129 -169. There is incre ased risk of pancr eatit is when the trigl yceri de ramy ntrat ion is very high (> or = 500 mg/dL , espec ially if > or = 1000 mg/dL ). Moses martinez et al. J. of Clin. Lipid ol. 2015; 9:129 -169. Not Available [facility] [address] [address] [place], [address], 06/18/2023 06:54:54 06/17/20 23 06/18/2023 LIPID PANEL , STAND RANDEE LDL-choleste rol mg/dL _(junior c) LDL brian stero l not calcu lated . Trigl yceri de level s great er than 400 mg/dL inval idate calcu lated LDL resul ts. Refer ence range : <100 Jenny able range <100 mg/dL for prima ry preve ntion ; <70 mg/dL for patie nts with CHD or diabe tic patie nts with > or = 2 CHD risk facto rs. LDL-C is now calcu lated using the Thuy n-Hop kins calcu yohana n, which is a valid ated novel blayne saleh kendall r accur acy than the Fried joo equat ion in the estim ation of LDL-C . Thuy mitchell SS et al. HAN. 2013; 310(1 9): 2061- 2068 (http ://ed ucati on.Qu Lore luu 2080 Medias. com/f aq/FA Q164) Not Available [facility] [address] [address] [address], [place], [address], 06/18/2023 06:54:54 06/17/2006/18/2023 LIPID PANEL , STAND RANDEE chol/HDLC ratio 6.6 (calc ) <5.0 high Not Available [facility] [address] [address] [place], [address], 06/18/2023 06:54:54 06/17/20 23 06/18/2023 LIPID PANEL , STAND RANDEE non HDL cholesterol 195 mg/dL _(junior c) <130 high For patie nts with diabe zee plus 1 major ASCVD risk facto r, treat ing to a non-H DL-C goal of <100 mg/dL (LDL- C of <70 mg/dL ) is kassi salinas optio n. Not Available [address], [address], 06/18/2023 06:54:54 06/17/2006/18/2023 COMPR EHENS JULIANNA METAB OLIC PANEL glucose 99 mg/dL 65-139 normal Non-f astin g refer ence inter alex Not Available [address], [address], 06/18/2023 06:54:56 06/17/2006/18/2023 COMPR EHENS JULIANNA METAB OLIC PANEL urea nitrogen (BUN) 8 mg/dL 7-25 normal Not Available [address] [place], [address], 06/18/2023 06:54:56 06/17/20 23 06/18/2023 COMPR EHENS JULIANNA METAB OLIC PANEL creatinine 0.66 mg/dL 0.50-0 .96 normal Not Available [address], [address], 06/18/2023 06:54:56 06/17/20 23 06/18/2023 COMPR EHENS JULIANNA METAB OLIC PANEL eGFR 127 mL/mi n/1.7 3m2 > or = 60 normal Not Available [address], [address], 06/18/2023 06:54:56 06/17/20 23 06/18/2023 COMPR EHENS JULIANNA METAB OLIC PANEL BUN/creatini ne ratio SEE NOTE: (calc ) 6-22 Not Repor juan pablo: BUN and Creat inine are withi n refer ence range . Not Available [address], [address], 06/18/2023 06:54:56 06/17/2006/18/2023 COMPR EHENS JULIANNA METAB OLIC PANEL sodium 137 mmol/ L 135-14 6 normal Not Available [address], [address], 06/18/2023 06:54:56 06/17/2006/18/2023 COMPR EHENS JULIANNA METAB OLIC PANEL potassium 4.2 mmol/ L 3.5-5. 3 normal Not Available [address], [address], 06/18/2023 06:54:56 06/17/2006/18/2023 COMPR EHENS JULIANNA METAB OLIC PANEL chloride 105 mmol/ L 98-110 normal Not Available [address], [address], 06/18/2023 06:54:56 06/17/2006/18/2023 COMPR EHENS JULIANNA METAB OLIC PANEL carbon dioxide 25 mmol/ L 20-32 normal Not Available [address], [address], 06/18/2023 06:54:56 06/17/2006/18/2023 COMPR EHENS JULIANNA METAB OLIC PANEL calcium 9.2 mg/dL 8.6-10 .2 normal Not Available [address], [address], 06/18/2023 06:54:56 06/17/2006/18/2023 COMPR EHENS JULIANNA METAB OLIC PANEL protein, total 7.1 g/dL 6.1-8. 1 normal Not Available [address] [place], [address], 06/18/2023 06:54:56 06/17/2006/18/2023 COMPR EHENS JULIANNA METAB OLIC PANEL albumin 4.3 g/dL 3.6-5. 1 normal Not Available [address], [address], 06/18/2023 06:54:56 06/17/20 23 06/18/2023 COMPR EHENS JULIANNA METAB OLIC PANEL globulin 2.8 g/dL_ (calc ) 1.9-3. 7 normal Not Available [address], [address], 06/18/2023 06:54:56 06/17/2006/18/2023 COMPR EHENS JULINANA METAB OLIC PANEL albumin/glob ulin ratio 1.5 (calc ) 1.0-2. 5 normal Not Available [address], [address], 06/18/2023 06:54:56 06/17/20 23 06/18/2023 COMPR EHENS JULIANNA METAB OLIC PANEL bilirubin, total 0.2 mg/dL 0.2-1. 2 normal Not Available [address], [address], 06/18/2023 06:54:56 06/17/20 23 06/18/2023 COMPR EHENS JULIANNA METAB OLIC PANEL alkaline phosphatase 56 U/L 31-125 normal Not Available [address], [address], 06/18/2023 06:54:56 06/17/20 23 06/18/2023 COMPR EHENS JULIANNA METAB OLIC PANEL AST 22 U/L 10-30 normal Not Available [address], [address], 06/18/2023 06:54:56 06/17/20 23 06/18/2023 COMPR EHENS JULIANNA METAB OLIC PANEL ALT 30 U/L 6-29 high Not Available [address] [place], [address], 06/18/2023 06:54:56 06/17/20 23 06/18/2023 TSH W/REF CHINMAY TO FT4 TSH w/reflex to FT4 2.41 mIU/L normal Refer ence Range > or = 20 Years 0.40- 4.50 Pregn josé Range s First trime ster 0.26- 2.66 Secon d trime ster 0.55- 2.73 Third trime ster 0.43- 2.91 Not Available [facility] [address] [address] [place], [address], 06/18/2023 06:54:57 06/17/20 23 06/18/2023 HEMOG LOBIN A1C hemoglobin A1C 5.1 %_of_ total _HGB <5.7 normal For the purpo se of scree stephen for the prese nce of diabe zee: <5.7% Consi stent with the absen ce of diabe zee 5.7-6 .4% Consi stent with incre ased risk for diabe zee (pred iabet es) > or =6.5% Consi stent with diabe zee This assay resul t is consi stent with a decre ased risk of diabe zee. Curre ntly, no conse nsus exist s ayazar therese use of hemog lobin A1c for diagn osis of diabe zee in child jonh. Accor ding to Ameri can Diabe zee Assoc iatio n (ADA) guide lines , hemog lobin A1c <7.0% repre sents optim al contr ol in non-p regna nt diabe tic patie nts. Diffe rent metri cs may apply to speci fic patie nt popul ation s. Stand ards of Medic al Care in Diabe zee(A DA). Not Available [facility] [address] [address] [place], [address], 06/18/2023 06:54:57 04/03/20 24 04/04/2024 LIPID PANEL , STAND RANDEE cholesterol, total 231 mg/dL <200 high Not Available [facility] [address] [address] [place], [address], 04/04/2024 05:50:11 04/03/20 24 04/04/2024 LIPID PANEL , STAND RANDEE HDL cholesterol 52 mg/dL > or = 50 normal Not Available [facility] [address] [address] [place], [address], 04/04/2024 05:50:11 04/03/20 24 04/04/2024 LIPID PANEL , STAND RANDEE triglyceride s 132 mg/dL <150 normal Not Available [facility] [address] [address] [place], [address], 04/04/2024 05:50:11 04/03/20 24 04/04/2024 LIPID PANEL , STAND RANDEE LDL-choleste rol 153 mg/dL _(junior c) high Refer ence range : <100 Jenny able range <100 mg/dL for prima ry preve ntion ; <70 mg/dL for patie nts with CHD or diabe tic patie nts with > or = 2 CHD risk facto rs. LDL-C is now calcu lated using the Thuy n-Hop kins dulceu yohana n, which is a valid ated novel blayne mao than the Fried joo equat ion in the estim ation of LDL-C . Thuy mitchell SS et al. HAN. 2013; 310(1 9): 2061- 2068 (http ://ed ucati on.Shiela blacks. com/f aq/FA Q164) Not Available [facility] [address] [address] [place], [address], 04/04/2024 05:50:11 04/03/20 24 04/04/2024 LIPID PANEL , STAND RANDEE chol/HDLC ratio 4.4 (calc ) <5.0 normal Not Available [facility] [address] [address] [place], [address], 04/04/2024 05:50:11 04/03/20 24 04/04/2024 LIPID PANEL , STAND RANDEE non HDL cholesterol 179 mg/dL _(junior c) <130 high For patie nts with diabe zee plus 1 major ASCVD risk facto r, treat ing to a non-H DL-C goal of <100 mg/dL (LDL- C of <70 mg/dL ) is kassi salinas optio n. Not Available [address] [address] [place], [address], 04/04/2024 05:50:11 04/03/20 24 04/04/2024 COMPR EHENS JULIANNA METAB OLIC PANEL glucose 82 mg/dL 65-99 normal Fasti ng refer ence inter alex Not Available [address] [address] [place], [address], 04/04/2024 05:50:12 04/03/20 24 04/04/2024 COMPR EHENS JULIANNA METAB OLIC PANEL urea nitrogen (BUN) 7 mg/dL 7-25 normal Not Available [address] [address] [place], [address], 04/04/2024 05:50:12 04/03/20 24 04/04/2024 COMPR EHENS JULIANNA METAB OLIC PANEL creatinine 0.68 mg/dL 0.50-0 .96 normal Not Available [address] [address] [place], [address], 04/04/2024 05:50:12 04/03/20 24 04/04/2024 COMPR EHENS JULIANNA METAB OLIC PANEL eGFR 126 mL/mi n/1.7 3m2 > or = 60 normal Not Available [address], [address], 04/04/2024 05:50:12 04/03/20 24 04/04/2024 COMPR EHENS JULIANNA METAB OLIC PANEL BUN/creatini ne ratio SEE NOTE: (calc ) 6-22 Not Repor juan pablo: BUN and Creat inine are withi n refer ence range . Not Available [address], [address], 04/04/2024 05:50:12 04/03/20 24 04/04/2024 COMPR EHENS JULIANNA METAB OLIC PANEL sodium 138 mmol/ L 135-14 6 normal Not Available [address], [address], 04/04/2024 05:50:12 04/03/20 24 04/04/2024 COMPR EHENS JULIANNA METAB OLIC PANEL potassium 4.6 mmol/ L 3.5-5. 3 normal Not Available [address], [address], 04/04/2024 05:50:12 04/03/2004/04/2024 COMPR EHENS JULIANNA METAB OLIC PANEL chloride 106 mmol/ L 98-110 normal Not Available [address], [address], 04/04/2024 05:50:12 04/03/20 24 04/04/2024 COMPR EHENS JULIANNA METAB OLIC PANEL carbon dioxide 23 mmol/ L 20-32 normal Not Available [address], [address], 04/04/2024 05:50:12 04/03/20 24 04/04/2024 COMPR EHENS JULIANNA METAB OLIC PANEL calcium 9.5 mg/dL 8.6-10 .2 normal Not Available [address], [address], 04/04/2024 05:50:12 04/03/2004/04/2024 COMPR EHENS JULIANNA METAB OLIC PANEL protein, total 7.2 g/dL 6.1-8. 1 normal Not Available [address], [address], 04/04/2024 05:50:12 04/03/20 24 04/04/2024 COMPR EHENS JULIANNA METAB OLIC PANEL albumin 4.5 g/dL 3.6-5. 1 normal Not Available [address], [address], 04/04/2024 05:50:12 04/03/20 24 04/04/2024 COMPR EHENS JULIANNA METAB OLIC PANEL globulin 2.7 g/dL_ (calc ) 1.9-3. 7 normal Not Available [address], [address], 04/04/2024 05:50:12 04/03/20 24 04/04/2024 COMPR EHENS JULIANNA METAB OLIC PANEL albumin/glob ulin ratio 1.7 (calc ) 1.0-2. 5 normal Not Available [address], [address], 04/04/2024 05:50:12 04/03/20 24 04/04/2024 COMPR EHENS JULIANNA METAB OLIC PANEL bilirubin, total 0.8 mg/dL 0.2-1. 2 normal Not Available [address], [address], 04/04/2024 05:50:12 04/03/20 24 04/04/2024 COMPR EHENS JULIANNA METAB OLIC PANEL alkaline phosphatase 81 U/L 31-125 normal Not Available [address], [address], 04/04/2024 05:50:12 04/03/20 24 04/04/2024 COMPR EHENS JULIANNA METAB OLIC PANEL AST 35 U/L 10-30 high Not Available [address], [address], 04/04/2024 05:50:12 04/03/20 24 04/04/2024 COMPR EHENS JULIANNA METAB OLIC PANEL ALT 53 U/L 6-29 high Not Available [address] [place], [address], 04/04/2024 05:50:12 04/03/2004/04/2024 CBC (INCL UDES DIFF/ PLT) white blood cell count 6.2 thous and/u L 3.8-10 .8 normal Not Available [address], [address], 04/04/2024 05:50:13 04/03/2004/04/2024 CBC (INCL UDES DIFF/ PLT) red blood cell count 4.30 timothy on/uL 3.80-5 .10 normal Not Available [address], [address], 04/04/2024 05:50:13 04/03/2004/04/2024 CBC (INCL UDES DIFF/ PLT) hemoglobin 13.6 g/dL 11.7-1 5.5 normal Not Available [address], [address], 04/04/2024 05:50:13 04/03/2004/04/2024 CBC (INCL UDES DIFF/ PLT) hematocrit 41.4 % 35.0-4 5.0 normal Not Available [address], [address], 04/04/2024 05:50:13 04/03/2004/04/2024 CBC (INCL UDES DIFF/ PLT) MCV 96.3 fL 80.0-1 00.0 normal Not Available [facility] [address], [address], 04/04/2024 05:50:13 04/03/2004/04/2024 CBC (INCL UDES DIFF/ PLT) MCH 31.6 pg 27.0-3 3.0 normal Not Available [facility] [address], [address], 04/04/2024 05:50:13 04/03/20 24 04/04/2024 CBC (INCL UDES DIFF/ PLT) MCHC 32.9 g/dL 32.0-3 6.0 normal Not Available [address], [address], 04/04/2024 05:50:13 04/03/20 24 04/04/2024 CBC (INCL UDES DIFF/ PLT) RDW 12.4 % 11.0-1 5.0 normal Not Available [address], [address], 04/04/2024 05:50:13 04/03/2004/04/2024 CBC (INCL UDES DIFF/ PLT) platelet count 371 thous and/u L 140-40 0 normal Not Available [address], [address], 04/04/2024 05:50:13 04/03/20 24 04/04/2024 CBC (INCL UDES DIFF/ PLT) MPV 9.6 fL 7.5-12 .5 normal Not Available [address], [address], 04/04/2024 05:50:13 04/03/20 24 04/04/2024 CBC (INCL UDES DIFF/ PLT) absolute neutrophils 3286 cells /uL 1500-7 800 normal Not Available [address], [address], 04/04/2024 05:50:13 04/03/20 24 04/04/2024 CBC (INCL UDES DIFF/ PLT) absolute lymphocytes 2387 cells /uL 850-39 00 normal Not Available [address], [address], 04/04/2024 05:50:13 04/03/20 24 04/04/2024 CBC (INCL UDES DIFF/ PLT) absolute monocytes 471 cells /uL 200-95 0 normal Not Available [facility] [address] [address], [place], [address], 04/04/2024 05:50:13 04/03/20 24 04/04/2024 CBC (INCL UDES DIFF/ PLT) absolute eosinophils 37 cells /uL 15-500 normal Not Available [facility] [address], [address], 04/04/2024 05:50:13 04/03/20 24 04/04/2024 CBC (INCL UDES DIFF/ PLT) absolute basophils 19 cells /uL 0-200 normal Not Available [facility] [address], [address], 04/04/2024 05:50:13 04/03/2004/04/2024 CBC (INCL UDES DIFF/ PLT) neutrophils 53 % normal Not Available [facility] [address], [address], 04/04/2024 05:50:13 04/03/20 24 04/04/2024 CBC (INCL UDES DIFF/ PLT) lymphocytes 38.5 % normal Not Available [facility] [address], [address], 04/04/2024 05:50:13 04/03/20 24 04/04/2024 CBC (INCL UDES DIFF/ PLT) monocytes 7.6 % normal Not Available [facility] [address], [address], 04/04/2024 05:50:13 04/03/20 24 04/04/2024 CBC (INCL UDES DIFF/ PLT) eosinophils 0.6 % normal Not Available [facility] [address], [address], 04/04/2024 05:50:13 04/03/20 24 04/04/2024 CBC (INCL UDES DIFF/ PLT) basophils 0.3 % normal Not Available [facility] [address] [place], [address], 04/04/2024 05:50:13 04/03/2004/04/2024 TSH W/REF CHINMAY TO FT4 TSH w/reflex to FT4 2.78 mIU/L normal Refer ence Range > or = 20 Years 0.40- 4.50 Pregn josé Range s First trime ster 0.26- 2.66 Secon d trime ster 0.55- 2.73 Third trime ster 0.43- 2.91 Not Available [facility] [address] [place], [address], 04/04/2024 05:50:13 04/03/2004/04/2024 HEMOG LOBIN A1C hemoglobin A1C 5.1 %_of_ total _HGB <5.7 normal For the purpo se of scree stephen for the prese nce of diabe zee: <5.7% Consi stent with the absen ce of diabe zee 5.7-6 .4% Consi stent with incre ased risk for diabe zee (pred iabet es) > or =6.5% Consi stent with diabe zee This assay resul t is consi stent with a decre ased risk of diabe zee. Curre ntly, no conse nsus exist s dagmar saleh use of hemog lobin A1c for diagn osis of diabe zee in child jonh. Accor ding to Ameri can Diabe zee Assoc iatio n (ADA) guide lines , hemog lobin A1c <7.0% repre sents optim al contr ol in non-p regna nt diabe tic patie nts. Diffe rent metri cs may apply to speci fic patie nt popul ation s. Stand ards of Medic al Care in Diabe zee(A DA). This test was perfo rmed on the Naomie juan f c503 platf orm. Effec tive , josiah butler in test platf orms from the [facility] t[facility] to the Naomie juan f c503 may have shift ed HbA1c resul ts елена red to histo rical resul ts. Based on labor atory valid ation testi ng condu [facility]ted at [facility] , the Naomie platf orm relat julianna to the [facility] platf orm had an avera ge incre ase in HbA1c value of < or = 0.3%. This diffe rence is withi n accep juan pablo varia bilit y estab lishe d by the Natio nal [employer] hemog lobin Stand ardiz ation Progr am. Note that not all indiv idual s will have had a shift in their resul ts and direc t елена rison s betwe en histo rical and curre nt resul ts for testi ng condu cted on diffe rent platf orms is not recom joi d. Not Available [facility] [address] [address] [place], [address], 04/04/2024 05:50:14 07/07/20 24 07/07/2024 US, abdom en, limit ed No observ ation record ed. [facility] [address] [place], [address], 07/07/2024 11:36:22 Result Notes None recorded. Problems Name Problem SNOMED Code Status Onset Date Resolution Date Notes Provider Name and Address Organization Details Recorded Time Constipat ion 01858631 Completed Not Available [facility] 3 22:07:21 Painless rectal bleeding 046927295 Completed 04/01/2024 HANH Guillaume [address], [facility], [place], [address] , [employer] 4 09:34:15 Internal hemorrhoi ds 56455915 Active Not Available [employer] 3 22:07:22 Contact dermatiti s 19179792 Completed 202204/01/2024 HANH Guillaume [address], [facility], [place], [address] , [email or web address] 4 09:33:54 Upper respirato ry infection 84241188 Completed 202204/01/2024 [address]H Gu[address]ume [address], [address], [place], [address] , [facility] 4 09:34:22 Obese 563907359 Active 2022 SHARI Oneal [address], [address], [place], [address] , [facility] 3 16:20:34 Hyperlipi demia 35542637 Active 2022 SHARI Oneal [address], [address], [place], [address] , [facility] 3 12:15:19 Cough 37673675 Completed 202304/01/2024 HANH Guillaume [address], [address], [place], [address] , [facility] 4 09:33:59 Onychomyc osis of toenails 709814772 Completed 202304/01/2024 HANH Guillaume [address], [address], [place], [address] , [facility] 4 09:34:12 Abnormali ty of nail of toe 578442425 Active 2023 Tamy Honeycutt MD [address], [address], [place], [address] , [facility] 4 11:24:51 Ingrowing nail of toe of left foot 30200728482 701346 Active 2023 HANH Guillaume [address], [address], [place], [address] , [facility] 4 09:49:37 Acute otitis media 3529927 Active 2023 HANH Guillaume [address], [address], [place], [address] , [facility] 4 10:10:19 Dysfuncti on of bilateral eustachia n tubes 18267711934 89281 Active 2023 HANH Guillaume [address] [facility], [address] [address], [place], [address] , [employer] 4 08:53:19 Bacterial vaginosis 840753747 Active 2023 HANH Guillaume [address] [facility], [place] [address], [place], [address] , [employer] 4 17:39:44 Candidias is of vagina 61877260 Active 2023 HANH Guillaume [address] [facility], [place] [address], [place], [address] , [employer] 4 17:40:03 Right upper quadrant pain 752601565 Active 2024 HANH Guillaume [address] [address], [place], [address] , [employer] 5 08:53:39 Problem Notes None recorded. Procedures Surgical History Date Name Laterality Status Provider Name and Address Organization Details Recorded Time 08/29/19 Cholecystectomy completed Not Available [facility] 09/19/2022 22:06:24 Removal of tonsils completed Not Available [facility] 09/19/2022 22:06:24 extraction of wisdom tooth completed Not Available [facility] 09/19/2022 22:06:24 Imaging Results Imaging Date Name Status LastModified by Organiz ation Details LastModified Time 07/07/2024 US, abdomen, limited completed [facility] [address] [place], [address], 07/07/2024 11:36:22 Procedure Notes None recorded. Medical Equipment None Reported. Allergies No known drug allergies Medications Name Sig Start Date Stop Date Status Note LastModified by Organization Details LastModified Time cyclobenzap rine 10 mg tablet TAKE 1 TABLET BY MOUTH THREE TIMES A DAY NEEDED active Not Available Not Available No t Available amoxicillin 500 mg capsule TAKE 1 CAPSULE BY MOUTH THREE TIMES A DAY UNTIL FINIS [id number]|2024-12-03 09:30:50|2024-12-03 09:30:50|ED.[email or web address]||||"HPI - Abdominal Pain General Chief Complaint: Abdominal Pain Stated Complaint: RUQ pain Time Seen by Provider: 12/03/24 09:04 History of Present Illness HPI narrative: 24-year-old female with reported history of cholecystectomy presents to emergency department for right upper quadrant abdominal pain intermittently since November 09. Patient states the pain heard November 09 and a right upper quadrant radiating to her back. She describes the pain as a sharp sensation followed by a dull ache. She states she has not had any pain since the came back this morning at 4:00 a.m. and 7:00 a.m.. She states the pain is sharp in nature and located to the right upper quadrant, radiates to her back and is worse with deep inspiration. She states the sharp pain lasted 1 hour and then subsided now but has residual dull ache. She cannot identify any aggravating or alleviating factors beyond deep inspiration. She had tacos last night for dinner. She reports associated nausea and vomiting. Denies cough, congestion, dysuria, hematuria, hemoptysis, lower extremity edema, history of VTE. Is on estrogen containing control. No other abdominal surgeries beyond cholecystectomy. Related Data Allergies Allergy/AdvReac Type Severity Reaction Status Date / Time No Known Allergies Allergy Unknown Verified 12/03/24 08:54 Review of Systems Review of Systems: All systems reviewed & are unremarkable except as noted in HPI and below PMFSH Past Medical History Medical History Rectal bleeding Chronic diarrhea Hematochezia History of concussion x2, frequent headaches Surgical History Surgical History Hx laparoscopic cholecystectomy Lap brian with poss IOC 08/29/21 [place] teeth extracted History of tonsillectomy Family History Family History Grandparent Hypertension Family history of malignant neoplasm of breast in first degree relative Social History Social History Smoking status: Never smoker Second hand tobacco smoke exposure: No Alcohol intake: never Substance use: never Substance use type: does not use Lack of Transportation: No Lack of Food: Never True Current Housing: I Have Housing Concerned About Future Housing: No Difficulty Paying Gas/Electric Bills: No Difficulty Paying for Meds: No Currently Unemployed: Decline to Answer Education: Decline to Answer Difficulty w/ Childcare or Family Care: Decline to Answer Living arrangements: with family Gender identity (if verbalized by the patient): Female Spiritual care concerns: No Exam Narrative: GENERAL: Well-appearing, well-nourished, and in no acute distress. HEAD: Normocephalic, atraumatic. EYES: EOMI. ENT: Nares clear, no rhinorrhea or epistaxis. Mucous membranes moist. NECK: Supple. CHEST: Clear to auscultation. No respiratory distress. HEART: Regular rate and rhythm. No murmur heard. Normal peripheral pulses. ABDOMEN: Normoactive bowel sounds. Abdomen soft with tenderness to the epigastrium and right upper quadrant. No rebound or rigidity. No CVA tenderness EXTREMITIES: Normal range of motion. No edema. Negative Homans bilaterally SKIN: Warm, dry, no rash. NEURO: No focal deficits. Alert and oriented x3 Course Vital Signs Vital signs: Vital Signs Temperature 98.3 F 12/03/24 08:56 Pulse Rate 105 H 12/03/24 08:56 Respiratory Rate 16 12/03/24 08:56 Blood Pressure 122/70 12/03/24 08:56 Pulse Oximetry 100 12/03/24 08:56 Oxygen Delivery Room Air 12/03/24 08:56 Temperature 98.3 F 12/03/24 08:56 Pulse Rate 94 12/03/24 10:59 Respiratory Rate 17 12/03/24 10:59 Blood Pressure 108/77 12/03/24 10:59 Pulse Oximetry 100 12/03/24 10:59 Oxygen Delivery Room Air 12/03/24 08:56 MDM - Abdominal Pain MDM Narrative Medical decision making narrative: 24-year-old female with history of cholecystectomy presents emergency department for intermittent right upper quadrant abdominal pain for the past month. See HPI for further history. Triage vitals with mild tachycardia 105, otherwise unremarkable. Patient is afebrile nontoxic appearing resting comfortably in exam bed. Exam is notable for the above. DDX includes but not limited to gastritis, GERD, pancreatitis, choledocholithiasis, constipation, pneumonia, PE CBC without leukocytosis or anemia. Chemistries do show transaminitis with an AST 190 and ALT 109, normal bilirubin and normal alk phos. Normal lipase. UA indicative of UTI with 21-50 white blood cells, 4+ bacteria, 3+ leuk esterase. Few squamous cells. negative. D-dimer is mildly elevated at 0.59, however PE excluded via YEARS criteria. CT abdomen pelvis shows no acute intra abdominal or pelvic process. Chest x-ray is unremarkable. Patient updated on results. She received IV fluids, Toradol and Pepcid with persistent pain and nausea. I discussed possibility of other biliary tree pathology such as choledocholithiasis a source of pain and need for MRCP if we cannot get symptoms under control. 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 Will trial Reglan and morphine and re-evaluate. Patient reports significant improvement after morphine and Reglan. Symptoms have resolved. She is requesting to be discharged. She is tolerating p.o. intake and overall is very well appearing. She remains afebrile and tachycardia has resolved. Will send naproxen and Zofran to the pharmacy. Will also start Keflex for UTI pending urine culture results. She was advised to follow-up closely with GI and given strict ED return precautions. She is agreeable with the plan verbalized understanding. Discharged in stable condition. Lab Data 12/03/24 09:18 12/03/24 09:18 Labs: Lab Results 12/03/24 12/03/24 12/03/24 Range/Units 09:11 09:18 09:22 WBC 6.7 (4.5-10.0) K/mm3 RBC 4.09 L (4.2-5.4) M/mm3 Hgb 12.7 (12.0-15.0) g/dL Hct 38.5 (37.0-47.0) % MCV 94.1 (80-100) fl MCH 31.1 (26-34) pg MCHC 33.0 (32-36) g/dl RDW 12.0 (11.5-14.5) % Plt Count 302 (150-375) k/mm3 MPV 8.8 (7.4-10.4) fl Immature Gran % (Auto) 0.3 (0-0.5) % Neut % (Auto) 69.3 (45.5-73.1) % Lymph % (Auto) 24.5 (18.3-44.2) % [place] % (Auto) 5.5 (2.6-8.5) % Eos % (Auto) 0.1 (0-4.4) % Baso % (Auto) 0.3 (0.2-1.2) % Lymph # (Auto) 1.65 (0.9-3.2) K/mm3 [place] # (Auto) 0.4 (0.1-0.6) K/mm3 Eos # (Auto) 0.0 (0-0.3) K/mm3 Baso # (Auto) 0.0 (0.0-0.1) K/mm3 Abs Immat Gran (auto) 0.02 (0.00-0.031) K/mm3 Absolute Neuts (auto) 4.7 (1.3-6.7) K/mm3 Absolute Nucleated RBC 0.000 (0.0-0.012) K/mm3 Nucleated RBC % 0.0 (0.0-0.2) % D-Dimer (<0.48) ug/mL Sodium 138 (137-145) mmol/L Potassium 3.8 (3.4-5.0) mmol/L Chloride 107 (98-107) mmol/L Carbon Dioxide 21 L (22-30) mmol/L Anion Gap 10 (4-12) mmol/L BUN 9 (7-17) mg/dL Creatinine 0.69 L (0.7-1.0) mg/dL Estim Creat Clear Calc 112 ml/min Estimated GFR > 60 (59 - ) Glucose 99 (65-110) mg/dL Calcium 9.2 (8.4-10.2) mg/dL Total Bilirubin 1.3 (0.2-1.3) mg/dL AST 190 H (14-36) U/L ALT 109 H (6-35) U/L Alkaline Phosphatase 99 (38-126) U/L Total Protein 8.0 (6.3-8.2) g/dL Albumin 4.3 (3.5-5.1) g/dL Lipase 124 (23-300) U/L Urine Color Dark yellow (Yellow) Urine Appearance Cloudy H (Clear) Urine pH 6.0 (5.0-9.0) Ur Specific Energy 1.027 (1.001-1.035) Urine Protein Trace (Negative) mg/dL Urine Glucose (UA) Negative (Negative) mg/dL Urine Ketones Trace H (Negative) mg/dL Ur Blood (Man) Negative (Negative) Urine Nitrate Negative (Negative) Urine Bilirubin 2+ H (Negative) Urine Urobilinogen 1.0 (<2.0) mg/dL Add Ur Microanalysis Reviewed Leukocyte Esterase Rfl 3+ H (Negative) GUILLERMINA/UL Urine RBC 3-5 H (0-2) /hpf Urine WBC 21-50 H (0-3) /hpf Ur Squamous Epith Cells Few (Few) /hpf Urine Bacteria 4+ H /hpf Urine Casts 3-5 POC Urine HCG, Qual Negative (Negative) 12/03/24 Range/Units 09:33 WBC (4.5-10.0) K/mm3 RBC (4.2-5.4) M/mm3 Hgb (12.0-15.0) g/dL Hct (37.0-47.0) % MCV (80-100) fl MCH (26-34) pg MCHC (32-36) g/dl RDW (11.5-14.5) % Plt Count (150-375) k/mm3 MPV (7.4-10.4) fl Immature Gran % (Auto) (0-0.5) % Neut % (Auto) (45.5-73.1) % Lymph % (Auto) (18.3-44.2) % [place] % (Auto) (2.6-8.5) % Eos % (Auto) (0-4.4) % Baso % (Auto) (0.2-1.2) % Lymph # (Auto) (0.9-3.2) K/mm3 [place] # (Auto) (0.1-0.6) K/mm3 Eos # (Auto) (0-0.3) K/mm3 Baso # (Auto) (0.0-0.1) K/mm3 Abs Immat Gran (auto) (0.00-0.031) K/mm3 Absolute Neuts (auto) (1.3-6.7) K/mm3 Absolute Nucleated RBC (0.0-0.012) K/mm3 Nucleated RBC % (0.0-0.2) % D-Dimer 0.59 H (<0.48) ug/mL Sodium (137-145) mmol/L Potassium (3.4-5.0) mmol/L Chloride (98-107) mmol/L Carbon Dioxide (22-30) mmol/L Anion Gap (4-12) mmol/L BUN (7-17) mg/dL Creatinine (0.7-1.0) mg/dL Estim Creat Clear Calc ml/min Estimated GFR (59 - ) Glucose (65-110) mg/dL Calcium (8.4-10.2) mg/dL Total Bilirubin (0.2-1.3) mg/dL AST (14-36) U/L ALT (6-35) U/L Alkaline Phosphatase (38-126) U/L Total Protein (6.3-8.2) g/dL Albumin (3.5-5.1) g/dL Lipase (23-300) U/L Urine Color (Yellow) Urine Appearance (Clear) Urine pH (5.0-9.0) Ur Specific Energy (1.001-1.035) Urine Protein (Negative) mg/dL Urine Glucose (UA) (Negative) mg/dL Urine Ketones (Negative) mg/dL Ur Blood (Man) (Negative) Urine Nitrate (Negative) Urine Bilirubin (Negative) Urine Urobilinogen (<2.0) mg/dL Add Ur Microanalysis Leukocyte Esterase Rfl (Negative) GUILLERMINA/UL Urine RBC (0-2) /hpf Urine WBC (0-3) /hpf Ur Squamous Epith Cells (Few) /hpf Urine Bacteria /hpf Urine Casts POC Urine HCG, Qual (Negative) Imaging Data Radiologist's impression: ITS Impressions Abdomen/Pelvis CT 12/03/24 10:00 IMPRESSION: 1. No acute intra-abdominal/pelvic process. Chest X-Ray 12/03/24 10:17 Impression: Normal chest. Discharge Plan Discharge Clinical Impression: Transaminitis, Right upper quadrant abdominal pain Patient Disposition: Home Condition: Stable Instructions: Antibiotic Form, Abdominal Pain (ED), Transaminitis (ED) Additional Instructions: You were evaluated in the emergency department for right upper quadrant abdominal pain. Your workup shows a possible urinary tract infection, he was started on antibiotics for this. Diflucan was also sent to [facility] developing infection. Your lab work shows elevation in your liver enzymes, your AST is 190 and ALT is 109. Your alk-phos and bilirubin are normal. The CT scan shows no acute findings. The elevation in your liver enzymes may be due to a possible stone or other pathology within her biliary tree as discussed. 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 Please take the medications as directed as needed and follow-up closely with the GI provider. Return to the emergency department if you develop worsening pain, fever 100.4 or greater, you are unable to tolerate food or fluids, or other concerning symptoms. Patient Language: [place] Prescriptions: New ondansetron 4 mg tablet,disintegrating 4 mg PO Q8H Qty: 14 0RF naproxen 500 mg tablet 500 mg PO BID PRN (Reason: pain) Qty: 20 0RF cephalexin 500 mg capsule 500 mg PO Q6H Qty: 28 0RF No Action norethindrone-e.estradiol-iron 1 mg-20 mcg (24)/75 mg (4) tablet 1 tablet PO DAILY Qty: 84 2RF Follow-up/Referrals: PHYSICIAN,[employer] [Non-Staff] - Arpit Medina MD [Physician] - "
--- OUTSIDE RECORDS SUMMARY | 2024-12-03 08:57 | XMS_ITS | Data Portability ---
Author Organization [facility] Address [address] [place] [address] Care Team Providers Care Book Trimmer Name Role Phone MARIA DE JESUSSEVEN OBREGON Primary Care Provider Assessment Encounter Date Assessment Date Assessment LastModified by Organization Details LastModified Time 09/12/2022 09/12/2022 Annual gynecological exam performed. Patient will come back in a year unless there are new symptoms. Suggest Calcium with Vitamin D if not eating in diet. Patient advised to get annual flu shot. Recommend yearly physicals and preform monthly breast exams. Genetic testing is available for patients with family history of cancer. Engage in safe sexual practices, use condoms. Encouraged to have daily exercise. Avoid tobacco and illicit drugs, moderation of alcohol. If BMI greater than 25 dietary consult advised. If you have any questions please call or email. [email or web address] Not available 09/12/2022 10:26:56 09/02/2024 09/02/2024 Annual gynecological exam performed. Patient will come back in a year unless there are new symptoms. [email or web address] Not available 08/28/2024 11:50:06 09/21/2024 09/21/2024 This patient is a 24-year-old female who presents for vulvar pain and discomfort. She has a redundant left labia. Patient is interested in radiation, surgical treatment the hypertrophy of her left labia. Was examined. There was a redundant labia of about 3.5 cm extending outward at the midportion of the labia minora. We discussed treatment options in detail. Discussed surgical treatment. The patient understands the procedure. The procedure was described to the patient in great detail. the patient also understands the risks. The risks were also explained in detail. She understands that injuries May occur during surgery. She understands these injuries can result in hospitalization, more surgery, and severe illness. She understands there is risk of hemorrhage and infection. I spent over 20 minutes on the patient's care in total. Patient understands risk of pain with intercourse and loss of consortium. [email or web address] Not available 09/22/2024 12:37:33 Plan of Treatment Reminders Order Date Submit Date Provider Last Modified By Organization Details Last Modified Time Details Appointments None recorded. Lab None recorded. Referral None recorded. Procedures None recorded. Surgeries None recorded. Imaging None recorded. Medication Orders Blisovi 24 Fe 1 mg-20 mcg (24)/75 mg (4) tablet 025 025 [facility] #[id number], [address], [place], [address], 5 12:45:34 Blisovi 24 Fe 1 mg-20 mcg (24)/75 mg (4) tablet 023 023 [facility] #[id number], [address], [place], [address], 3 03:34:22 Patient TargetsNo targets recorded. Patient InstructionsNo instructions recorded. Reason for Referral None Reported. Results Created Date Observation Date Name Description Value Unit Range Abnormal Flag Note LastModifiedBy Organization Detail LastModifiedTime 09/12/19 23 09/12/2022 IMAGE GUIDE D PAP, REFLE X HPV IF ASCUS ONLY image guided Pap, reflex HPV ASCUS only SEE RESULT S BELOW CASE REPOR T: Cytol ogy Gynec ologi junior Repor t Case: [id number] Autho ladan franco Provi radha: Marti Loving NP Colle cted: 09/12 1136 Order ing Locat ion: [place] [facility] Recei jeffrey: 09/13 1235 First Scree n: Berta Emery, CT Rescr een: Ranjith humphreys ak, Dewayne ay, CT Speci men: Scree stephen Pap - Image d, Cervi x STATE MENT OF ADEQU ACY: Satis facto ry for evalu ation Trans forma tion zone compo nent prese nt FINAL DIAGN OSIS: Negat andrew for Intra epith elial Lesio n or Tessie ruby (NIL) . Elect ada erickson sadia d by Ranjith ko, Dewayne wylie, CT on 2022 at 3:17 PM ----- ----- ----- ----- ----- ----- ----- ----- ----- ----- ----- ----- ----- ----- ----- ----- ----- ---- COMME NT: Note: This speci men was revie wed by a Cytot echno logis t and/o r Patho logis t (as indic ated in this repor t) after evalu ation using the Thinp rep Imagi ng Syste m. CLINI JUNIOR INFOR MATIO N: Menst rual Statu s: LMP (if appli cable ): Clini junior Histo ry/Pr eviou s Pap: Type of Neopl kimberli (if appli cable ): Signi fican t Clini junior Findi ngs: Other Histo ry: Hormo usha (if appli cable ): PAP EDUCA PILAR L NOTE: The Pap Test is a scree stephen test with an inher ent false negat andrew rate. Liqui d-bas ed sampl ing may decre ase, but will not elimi lazaro, false negat andrew resul ts. A negat andrew resul t does not precl ude the prese nce and/o r devel opmen t of disea se, since the prese nce of abnor mal cells in the sampl e depen ds on the locat ion of the lesio n and sampl ing techn ique. Renata nued regul ar scree stephen is the best metho d of cance r preve ntion . If repor juan pablo cytol ogic findi ng do not corre late with physi junior and/o r histo rical findi ngs, furth er inves tigat ion is recom joi d, as clini liliane navarrete nted. Not Available [facility] (Lab) [address], [place], [address], 09/17/2022 16:19:46 Result Notes None recorded. Procedures Surgical History Date Name Laterality Status Provider Name and Address Organization Details Recorded Time 09/12/19 23 Date of Last Pap Smear completed [facility] 09/12/2022 10:25:18 08/29/19 Cholecystectomy completed [facility] 09/12/2022 10:27:14 Imaging Results None recorded. Procedure Notes None recorded. Medical Equipment None Reported. Allergies No known drug allergies Medications Name Sig Start Date Stop Date Status Note LastModified by Organization Details LastModified Time binaxnow cov kit home zee 09/12 completed Not Available Not Available Not Available atorvastati n 40 mg tablet TAKE 1 TABLET BY MOUTH EVERY DAY 09/02 completed Not Available Not Available Not Available doxycycline hyclate 100 mg capsule TAKE 1 CAPSULE BY MOUTH TWICE A DAY WITH FOOD 08/28 completed Not Available Not Available Not Available azithromyci n 250 mg tablet TAKE 2 TABLETS BY MOUTH TODAY, THEN TAKE 1 TABLET DAILY FOR 4 DAYS DIRECTED 08/28 completed Not Available Not Available Not Available fluconazole 150 mg tablet TAKE 1 TABLET BY MOUTH EVERY DAY NEEDED FOR 1 DAY 09/02 completed Not Available Not Available Not Available hydrocodone 5 mg-acetamin ophen 325 mg tablet TAKE 1 TABLET BY MOUTH EVERY 6 HOURS NEEDED FOR PAIN *MAX DAILY AMOUNT 6 TABLETS* 09/12 completed Not Available Not Available Not Available prednisone 20 mg tablet TAKE 3TABS BY MOUTH DAILY X3DAYS, 2TABS DAILY X3DAYS, 1TAB DAILY X3DAYS THEN 1/2TAB DAILY X3DAYS 09/12 completed Not Available Not Available Not Available metronidazo le 500 mg tablet TAKE 1 TABLET BY MOUTH EVERY 12 HOURS FOR 7 DAYS 09/12 completed Not Available Not Available Not Available tramadol 50 mg tablet TAKE 1 TABLET BY MOUTH EVERY 8 HOURS NEEDED 09/02 completed Not Available Not Available Not Available terbinafine HCl 250 mg tablet TAKE 1 TABLET BY MOUTH EVERY DAY UNTIL FOLLOW UP 09/02 completed Not Available Not Available Not Available ofloxacin 0.3 % ear drops INSTILL 5 DROPS INTO THE RIGHT EAR ONCE DAILY 09/12 completed Not Available Not Available Not Available amoxicillin 875 mg tablet TAKE 1 TABLET BY MOUTH EVERY 12 HOURS FOR 10 DAYS 09/12 completed Not Available Not Available Not Available docusate sodium 100 mg capsule TAKE 1 CAPSULE BY MOUTH EVERY DAY 09/02 completed Not Available Not Available Not Available methylpredn isolone 4 mg tablets in a dose pack TAKE 6 TABLETS ON DAY 1 DIRECTED ON PACKAGE AND DECREASE BY 1 TAB EACH DAY FOR A TOTAL OF 6 DAYS 09/02 completed Not Available Not Available Not Available amoxicillin 875 mg-potassiu m clavulanate 125 mg tablet TAKE 1 TABLET BY MOUTH EVERY 12 HOURS WITH MEALS FOR 5 DAYS 09/02 completed Not Available Not Available Not Available neomycin-po lymyxin-hyd rocort 3.5 mg-10,000 unit/mL-1 % ear drops,susp INSTILL 4 DROPS INTO AFFECTED EAR(S) 3 TIMES A DAY 09/12 completed Not Available Not Available Not Available DentaGel 1.1 % PLEASE SEE ATTACHED FOR DETAILED DIRECTION S 09/02 completed Not Available Not Available Not Available ciclopirox 0.77 % topical suspension APPLY A THIN LAYER TO FINGERNAI LS BEFORE BEDTIME. 09/02 completed Not Available Not Available Not Available Blisovi 24 Fe 1 mg-20 mcg (24)/75 mg (4) tablet Take 1 tablet every day by oral route. active Not Available Not Available No t Available BinaxNOW COVID-19 Ag Self Test kit TEST DIRECTED TODAY 09/12 completed Not Available Not Available Not Available Mounjaro 7.5 mg/0.5 mL subcutaneou s pen injector INJECT 7.5 MG EVERY WEEK BY SUBCUTANE OUS ROUTE DIRECTED FOR 28 DAYS. 09/02 completed Not Available Not Available Not Available Mounjaro 5 mg/0.5 mL subcutaneou s pen injector Inject by subcutane ous route. active Not Available Not Available No t Available Vitals Date Recorded Body height Body mass index (BMI) Body weight Systolic blood pressure Diastolic blood pressure Provider Name and Address Organization Details Last Updated DateTime 09/12/2022 163.83 cm 40.2 kg/m2 484184.9 8 g 112 mm[Hg] 79 mm[Hg] Mirta Barros [facility] 3 10:22:40 Date Recorded Body height Body mass index (BMI) Body weight Systolic blood pressure Diastolic blood pressure Provider Name and Address Organization Details Last Updated DateTime 09/02/2024 163.83 cm 28.1 kg/m2 20220.05 g 111 mm[Hg] 73 mm[Hg] Missy Rai [facility] 5 12:10:39 Date Recorded Body height Body mass index (BMI) Body weight Systolic blood pressure Diastolic blood pressure Provider Name and Address Organization Details Last Updated DateTime 09/21/2024 163.83 cm 28.1 kg/m2 59004.33 g 106 mm[Hg] 72 mm[Hg] Carisa Paul [facility] 5 15:11:10 Social History Question Answer Notes LastModified by Organizat ion Details LastModified Time Tobacco Smoking Status Never Smoker Mirta Barros [facility], [facility] 09/12/2022 10:27:03 Do You Have An Advance Directive? No [email or web address] Information n ot available 09/02/2024 Are You Blind Or Do You Have Difficulty Seeing? No Information n ot available 09/12/2022 What Is Your Level Of Caffeine Consumption? Occasional [email or web address] Information not available 09/12/2022 How Much Tobacco Do You Chew? None Information not available 09/12/2022 In The 14 Days Before Symptom Onset, Have You Had Close Contact With A Laboratory-confirm ed COVID-19 While That Case Was Ill? No [email or web address] Information n ot available 09/12/2022 In The 14 Days Before Symptom Onset, Have You Had Close Contact With A Person Who Is Under Investigation For COVID-19 While That Person Was Ill? No [email or web address] Information not available 09/12/2022 Have You Been To An Area Known To Be High Risk For COVID-19? No [email or web address] Information not available 09/12/2022 Are You Deaf Or Do You Have Serious Difficulty Hearing? No [email or web address] Information not available 09/12/2022 What Type Of Diet Are You Following? REGULAR [email or web address] Information n ot available 09/12/2022 What Is The Highest Grade Or Level Of School You Have Completed Or The Highest Degree You Have Received? [id number] [email or web address] Information not available 09/12/2022 Are There Any Guns Present In Your Home? No [email or web address] Information not available 09/12/2022 Do You Use Protection During Sex? Always [email or web address] Information not available 09/12/2022 Do You Use Your Seat Belt Or Car Seat Routinely? Yes [email or web address] Information not available 09/12/2022 Do You Have Smoke And Carbon Monoxide Detectors In Your Home? Yes Information not available 09/12/2022 How Much Tobacco Do You Smoke? No [email or web address] Information not available 09/12/2022 Do You Use Sunscreen Routinely? Yes [email or web address] Information not available 09/12/2022 Has Tobacco Cessation Counseling Been Provided? No [email or web address] Information not available 09/12/2022 Have You Used IV Drugs? No [email or web address] Information not available 09/12/2022 Do You Have Difficulty Walking Or Climbing Stairs? No [email or web address] Information not available 09/12/2022 Sex: Unknown Functional Status Question Answer Note LastModified by Organizat ion Details LastModified Time Do you use any illicit or recreational drugs? No [email or web address] Information not available 09/12/2022 Do you or have you ever used any other forms of tobacco or nicotine? No [email or web address] Information not available 09/12/2022 What is your level of alcohol consumption? None [email or web address] Information not available 09/12/2022 Are you able to walk? YESWOREST [email or web address] Information not available 09/12/2022 Are you able to care for yourself? 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 No [email or web address] Information not available 09/12/2022 What is your exercise level? Occasional [email or web address] Information not available 09/12/2022 Mental Status Question Answer Note LastModified by Organization D etails LastModified Time Do you feel stressed (tense, restless, nervous, or anxious, or unable to sleep at night)? [id number] [email or web address] Information not available 09/12/2022 Family History Relationship Description Onset Age of this Age Resolved Age Notes LastModified by Organization Details LastModified Time Father No current problems or disability [email or web address] Not available 08/23 10:26:49 Mother No current problems or disability [email or web address] Not available 08/23 10:26:49 Medical History Condition Response Allergies (Food, seasonal, environmental ) N Other N Drug/Latex Allergies/Reactions N Breast Cancer N Blood Transfusion N Lung Disease N Dermatologic Disorders N Defects or Inherited Disease N Breast Problem N Gestational Diabetes N Hematologic disorders N Anesthesia Complications N History of STI N Deep Vein Thrombosis N Polycystic ovary syndrome N Anxiety Disorder N Autoimmune disease N Arthritis N Polyps N Infertility N History of abnormal pap N Acid Reflux (GERD) N Cancer N Varicosities N Stroke N Neurologic/Epilepsy N Endometriosis N High Cholesterol N Headaches N Fibromyalgia N Kidney Disease N Heart Problems N Thyroid Problems N Kidney or Bladder Problems N GI Problems N Eating Disorder N Anemia N Art (IVF or FET) N Psychiatric Illness N Ovarian Cancer N Diabetes N Pulmonary (TB, Asthma) N Hepatitis/Liver Disease N No Past Medical History N Eczema N Urinary Tract Infection N Abuse/Domestic Violence N Asthma N Trauma/Violence N Depression/ depression N Heart Disease N Pre-Eclampsia N Hypertension N Osteoporosis N Thrombophilias N Gynecological History Statement/Question Response Abnormal Pap N Flow Light Date of Last Mammogram Date of LMP 08/29/2024 N Was last menstrual period normal Y STIs/STDs N HPV Vaccine N Duration of Flow (days) 3 Current Control Method BCPs Are cycles usually normal Y Frequency of Cycle (Q days) 28 Sexually Active? N BCPs Menses Monthly Y Date of DEXA bone scan Age of first menstrual cycle 11 Date of Last Pap Smear 09/12/2022 Desired Control Method BCPs LMP Definite N Obstetrics History GPAL:G 0 P 0 0 0 0 Type Value Living 0 Total 0 Past Encounters Encounter ID Performer Location Encounter Start Date Encounter Closed Date Diagnosis/Indication Diagnosis SNOMED-CT Code Diagnosis ICD10 Code Diagnosis Note [id number] Marti Little Mary EllenALVIN [place] [address] [address] 09/12/2022 09:57:40 09/12/2022 10:47:43 Gynecologic examination 06413621 Z01.419 [id number] Cristian Mayorga MD [facility] [address] [address] 09/02/2024 12:03:58 09/02/2024 12:53:18 Gynecologic examination 54793087 Z01.419 Annual gynecologi junior exam performed. Patient will come back in a year unless there are new symptoms. Suggest Calcium with Vitamin D if not eating in diet. Patient advised to get annual flu shot. Recommend yearly physicals and perform monthly breast exams. Genetic testing is available for patients with family history of cancer. Engage in safe sexual practices, use condoms. Encouraged to have daily exercise. Avoid tobacco and illicit drugs, moderation of alcohol. If BMI greater than 25 dietary consult advised. If you have any questions please call or email. Pap smear- UTD (2022 - WNL), will repeat in 2025 per ASCCP guidelines laboratory evaluation - PCP STI testing - declined Contracept ion care management 015567843 Z30.9 Happy with BC pills. Risks/bene fits reviewed.R efills sent x one year. Hypertrophy of labia 957 [id number] 101 N90.60 Patient c/o pain and irritation during physical activity, when wearing tight clothing, and sometimes during intercours e due to enlarged left labia. Patient highly interested in surgical options for labia reduction. Patient to schedule consult with for labiaplast y of left labia minora. [id number] Cristian Mayorga MD [facility] [address] [address] 09/21/2024 14:54:31 09/22/2024 16:32:29 Hypertrophy of labia 6576202639 101 N90.60 Health Concerns Section Related Observation LastModified by Organization Detai ls LastModified Time None Recorded Concern Status LastModified by Organization Details LastModified Time None Recorded Advance Directives Directive N: Payers Encounter Date Sequence Insurance Name Policy Number Policy [place] Covered Member ID [place] Member ID Guarantor Name 09/12/2022 1 [place] [id number] Chiki Kamara [id number] Chiki Kamara 09/02/2024 1 [place] [id number] Chiki Kamara [id number] Chiki Kamara 09/21/2024 1 [place] [id number] Chiki Kamara [id number] Chiki Kamara Notes Date Note Type Note Provider Name and Address Organization Details Recorded Time 09/12/2022 text/html Annual GYNReport ed bypatient.History:no gynecologic complaints; no change in interval history Menstrual cycle:Normal menses Urinary symptoms:No hematuria; No incontinence Vulva:No genital lesion Vagina:Normal vaginal discharge Breast:No breast pain; No breast lump; No nipple discharge Sexual complaints:No sexual complaints; No pain during intercourse; Normal libido Menopausal Symptoms:No menopausal symptoms; Normal vaginal lubrication Psychological symptoms:No depression; No anxiety; No PMDD Preventive measures:Encourage self breast examination; Encourage regular exercise; Encourage no tobacco use; Encourage regular mammograms starting age 40Notes:no pap hx declines std testing, happy with bcm Marti Hyde CNM [address], [place], [address], [facility] 09/12/2022 10:30:15 09/02/2024 text/html Annual GYNReport ed bypatient.Menstrual cycle:Normal menses Urinary symptoms:No hematuria; No incontinence Vulva:No genital lesion Vagina:Normal vaginal discharge Breast:No breast pain; No breast lump; No nipple discharge Current Contraception:Satisf ied with current contraception; Oral contraceptives Sexual complaints:No sexual complaints; No pain during intercourse; Normal libido Menopausal Symptoms:No menopausal symptoms; Normal vaginal lubrication Psychological symptoms:No depression; No anxiety; No PMDD Preventive measures:Encourage self breast examination; Encourage regular exercise; Encourage no tobacco use; Encourage regular mammograms starting age 40 Patient presents for annual well woman exam. MORENO GIBSON NP [address], [place], [address], [facility] 09/02/2024 12:47:22 09/21/2024 text/html This patient is a 24-year-old female who presents for vulvar pain and discomfort. She has a redundant left labia. Patient is interested in radiation, surgical treatment the hypertrophy of her left labia. Was examined. There was a redundant labia of about 3.5 cm extending outward at the midportion of the labia minora. We discussed treatment options in detail. Discussed surgical treatment. The patient understands the procedure. The procedure was described to the patient in great detail. the patient also understands the risks. The risks were also explained in detail. She understands that injuries May occur during surgery. She understands these injuries can result in hospitalization, more surgery, and severe illness. She understands there is risk of hemorrhage and infection. I spent over 20 minutes on the patient's care in total. Patient understands risk of pain with intercourse and loss of consortium. Cristian Mayorga MD [address], [place], [address], [facility] 09/22/2024 12:59:56 OBGyn Episode No OBEpisode recorded.
--- OUTSIDE RECORDS SUMMARY | 2024-12-03 08:57 | XMS_ITS | Clinical Summary ---
Author Organization [facility] [employer] Address [address] [place] [address] Care Team Providers Care Electron Beam Operator Name Role Phone Unavailable Primary Care Provider Unavailabl e Source Comments [facility] [employer],non-owned Affiliates and Associated Physician Practices is amultiple site organization consisting of ambulatory clinics and hospital sitesin [place], [place], [place] and [place]. This disclosure is being madepursuant to the Care Everywhere program and may not contain all information available regarding this patient. Last updated 18.[facility] [employer] Allergies No known active allergies Medications * Be aware that medications may not be up to date on this document. Alwaysverify current medications with the patient. acetaminophen (TYLENOL) 500 MG tablet Take 1,000 mg by mouth every 4 hours as needed for Fever or Pain Maximum allowable Acetaminophen amount = 4 Grams (4000 mg) / 24 hours. Active naproxen (NAPROSYN) 500 MG tablet Take 1 Tab by mouth 2 times daily as needed for Pain 30 Tab 2 6 Active Additional Information Patient not taking.Reported on 09/07/2020 ibuprofen (MOTRIN) 200 MG tablet Take 400 mg by mouth every 6 hours as needed for Pain Active 08/10 1-20 MG-MCG tablet Take 1 tablet by mouth once daily 0 9 Active multivitamin daily tablet Take 1 tablet by mouth daily with food Active SUMAtriptan (IMITREX) 50 MG tablet Take one tab at onset, you may repeat one additional tablet 1-2 hours later if not improved. Maximum daily dose: 200mg/24 hours 9 tablet 6 9 Active Additional Information Patient not taking.Reported on 09/07/2020 amitriptyline (ELAVIL) 25 MG tablet Take 1 tablet by mouth at bedtime 30 tablet 6 0 Active Additional Information Patient not taking.Reported on 09/07/2020 Norgestim-Eth Estrad Triphasic ([id number]-[id number] LLA PO) Active Active Problems Problem Noted Date Diagnosed Date Migraine 11/18/2018 Dizziness and giddiness 11/18/2018 Vomiting 11/18/2018 Right wrist pain 07/12/2014 Concussion Migraine without aura and wi thout status migrainosus, not intractable Chronic daily headache Social History Tobacco Use Types Packs/Day Years Used Date Smoking Tobacco: Never Smokeless Tobacco: Never Alcohol Use Standard Drinks/Week Comments No 0 (1 standard drink = 0.6 oz pur e alcohol) Comments No Sex and Gender Information Value Date Recorded Sex Assigned at Not on file Legal Sex Female 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 Gender Identity Not on file Sexual Orientation Not on file Last Filed Vital Signs Vital Sign Reading Time Taken Comments Blood Pressure 100/60 09/09/2020 10:12 AM TECHNICAL TRAINER Pulse 78 09/09/2020 10:12 AM TECHNICAL TRAINER Temperature 36.7 C (98 F) 09/09/2020 10:12 AM TECHNICAL TRAINER Respiratory Rate 16 09/09/2020 10:12 AM TECHNICAL TRAINER Oxygen Saturation 98% 09/09/2020 10:12 AM TECHNICAL TRAINER Inhaled Oxygen Concentration - - Weight 81.6 kg (180 lb) 09/09/2020 10:12 AM TECHNICAL TRAINER Height 165.1 cm (5' 5 ) 09/09/2020 10:12 AM TECHNICAL TRAINER Body Mass Index 29.95 09/09/2020 10:12 AM TECHNICAL TRAINER Plan of Treatment Health Maintenance Due Date Last Done Comments HIV SCREENING 2016 HPV VACCINE (1 - 3-dose series) 2016 CHLAMYDIA/GONORRHEA SCREENING 2017 MENINGOCOCCAL (Group B) VACC INE SHARED DECISION-MAKING (1 of 2 - Standard) 2017 HEPATITIS C SCREENING 04/14/2019 DTAP/TDAP/TD VACCINES (1 - Tdap) 2020 HEPATITIS B VACCINE (1 of 3 - 19+ 3-dose series) 2020 COVID-19 VACCINE ( - 2023-2 5 season) 2024 DEPRESSION SCREENING 07/22/2024 INFLUENZA VACCINE (Season Ended) 2025 ZOSTER VACCINE (1 of 2) 2051 HIB VACCINE Aged Out No longer eligi ble based on patient's age to complete this topic MENINGOCOCCAL GROUPS A/C/Y/W VACCINE Aged Out No longer eligible b ased on patient's age to complete this topic PNEUMOCOCCAL VACCINE Aged Out No long er eligible based on patient's age to complete this topic Insurance ANTHEM ANTHEM
--- OUTSIDE RECORDS SUMMARY | 2024-12-03 08:57 | XMS_ITS | Clinical Summary ---
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
[2024-12-03 09:23] LABS: BEDSIDEPREGUCG Negative (Negative)
[2024-12-03 09:27] LABS: Basophils Percent Auto 0.3 % (0.2-1.2); Eosinophils Percent Auto 0.1 % (0-4.4); Hematocrit 38.5 % (37.0-47.0); Hemoglobin 12.7 g/dL (12.0-15.0); Immature Granulocyte Absolute 0.02 K/mm3 (0.00-0.031); Immature Granulocyte Percent A 0.3 % (0-0.5); Lymphocytes Absolute Auto 1.65 K/mm3 (0.9-3.2); Lymphocytes Percent Auto 24.5 % (18.3-44.2); Mean Corpuscular Hemoglobin 31.1 pg (26-34); Mean Corpuscular Volume 94.1 fl (80-100); Mean Platelet Volume 8.8 fl (7.4-10.4); Monocytes Absolute Auto 0.4 K/mm3 (0.1-0.6); Monocytes Percent Auto 5.5 % (2.6-8.5); Neutrophils Absolute Auto 4.7 K/mm3 (1.3-6.7); Neutrophils Percent Auto 69.3 % (45.5-73.1); Platelet Count Result 302 k/mm3 (150-375); Red Blood Count 4.09 M/mm3 (4.2-5.4); White Blood Count 6.7 K/mm3 (4.5-10.0)
--- NOTE | 2024-12-03 09:28 | ECG_ITS ---
Test Date: 2024-12-03 10:17:47 Measurements Intervals [place] Rate: 79 P: 65 MT: 170 QRS: 84 QRSD: 96 T: 53 QT: 388 QTc: 445 Interpretive Statements SINUS RHYTHM WITH MARKED SINUS ARRHYTHMIA OTHERWISE NORMAL ECG No previous ECG available for comparison Electronically Signed On 12-04-2024 09:37:59 CDT by Casey Martinez M.D.
--- NOTE | 2024-12-03 09:30 | ED_ITS ---
HPI - Abdominal Pain General Chief Complaint: Abdominal Pain Stated Complaint: RUQ pain Time Seen by Provider: 12/03/24 09:04 History of Present Illness HPI narrative: 24-year-old female with reported history of cholecystectomy presents to emergency department for right upper quadrant abdominal pain intermittently since November 09. Patient states the pain heard November 09 and a right upper quadrant radiating to her back. She describes the pain as a sharp sensation followed by a dull ache. She states she has not had any pain since the came back this morning at 4:00 a.m. and 7:00 a.m.. She states the pain is sharp in nature and located to the right upper quadrant, radiates to her back and is worse with deep inspiration. She states the sharp pain lasted 1 hour and then subsided now but has residual dull ache. She cannot identify any aggravating or alleviating factors beyond deep inspiration. She had tacos last night for dinner. She reports associated nausea and vomiting. Denies cough, congestion, dysuria, hematuria, hemoptysis, lower extremity edema, history of VTE. Is on estrogen containing control. No other abdominal surgeries beyond cholecystectomy. Related Data Allergies Allergy/AdvReac Type Severity Reaction Status Date / Time No Known Allergies Allergy Unknown Verified 12/03/24 08:54 Review of Systems 2 Review of Systems: All systems reviewed & are unremarkable except as noted in HPI and below PMFSH Past Medical History Medical History Rectal bleeding Chronic diarrhea Hematochezia History of concussion x2, frequent headaches Surgical History Surgical History Hx laparoscopic cholecystectomy Lap brian with poss IOC 08/29/21 [place] teeth extracted History of tonsillectomy Family History Family History Grandparent Hypertension Family history of malignant neoplasm of breast in first degree relative Social History Social History Smoking status: Never smoker Second hand tobacco smoke exposure: No Alcohol intake: never Substance use: never Substance use type: does not use Lack of Transportation: No Lack of Food: Never True Current Housing: I Have Housing Concerned About Future Housing: No Difficulty Paying Gas/Electric Bills: No Difficulty Paying for Meds: No Currently Unemployed: Decline to Answer Education: Decline to Answer Difficulty w/ Childcare or Family Care: Decline to Answer Living arrangements: with family Gender identity (if verbalized by the patient): Female Spiritual care concerns: No Exam 2 Narrative: GENERAL: Well-appearing, well-nourished, and in no acute distress. HEAD: Normocephalic, atraumatic. EYES: EOMI. ENT: Nares clear, no rhinorrhea or epistaxis. Mucous membranes moist. NECK: Supple. CHEST: Clear to auscultation. No respiratory distress. HEART: Regular rate and rhythm. No murmur heard. Normal peripheral pulses. ABDOMEN: Normoactive bowel sounds. Abdomen soft with tenderness to the epigastrium and right upper quadrant. No rebound or rigidity. No CVA tenderness EXTREMITIES: Normal range of motion. No edema. Negative Homans bilaterally SKIN: Warm, dry, no rash. NEURO: No focal deficits. Alert and oriented x3 Course Vital Signs Vital signs: Vital Signs Temperature 98.3 F 12/03/24 08:56 Pulse Rate 105 H 12/03/24 08:56 Respiratory Rate 16 12/03/24 08:56 Blood Pressure 122/70 12/03/24 08:56 Pulse Oximetry 100 12/03/24 08:56 Oxygen Delivery Room Air 12/03/24 08:56 Temperature 98.3 F 12/03/24 08:56 Pulse Rate 94 12/03/24 10:59 Respiratory Rate 17 12/03/24 10:59 Blood Pressure 108/77 12/03/24 10:59 Pulse Oximetry 100 12/03/24 10:59 Oxygen Delivery Room Air 12/03/24 08:56 MDM - Abdominal Pain MDM Narrative Medical decision making narrative: 24-year-old female with history of cholecystectomy presents emergency department for intermittent right upper quadrant abdominal pain for the past month. See HPI for further history. Triage vitals with mild tachycardia 105, otherwise unremarkable. Patient is afebrile nontoxic appearing resting comfortably in exam bed. Exam is notable for the above. DDX includes but not limited to gastritis, GERD, pancreatitis, choledocholithiasis, constipation, pneumonia, PE CBC without leukocytosis or anemia. Chemistries do show transaminitis with an AST 190 and ALT 109, normal bilirubin and normal alk phos. Normal lipase. UA indicative of UTI with 21-50 white blood cells, 4+ bacteria, 3+ leuk esterase. Few squamous cells. negative. D-dimer is mildly elevated at 0.59, however PE excluded via YEARS criteria. CT abdomen pelvis shows no acute intra abdominal or pelvic process. Chest x-ray is unremarkable. Patient updated on results. She received IV fluids, Toradol and Pepcid with persistent pain and nausea. I discussed possibility of other biliary tree pathology such as choledocholithiasis a source of pain and need for MRCP if we cannot get symptoms under control. 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 Will trial Reglan and morphine and re- evaluate. Patient reports significant improvement after morphine and Reglan. Symptoms have resolved. She is requesting to be discharged. She is tolerating p.o. intake and overall is very well appearing. She remains afebrile and tachycardia has resolved. Will send naproxen and Zofran to the pharmacy. Will also start Keflex for UTI pending urine culture results. She was advised to follow-up closely with GI and given strict ED return precautions. She is agreeable with the plan verbalized understanding. Discharged in stable condition. Lab Data 12/03/24 09:18 12/03/24 09:18 Labs: Lab Results 12/03/24 12/03/24 12/03/24 Range/Units 09:11 09:18 09:22 WBC 6.7 (4.5-10.0) K/mm3 RBC 4.09 L (4.2-5.4) M/mm3 Hgb 12.7 (12.0-15.0) g/dL Hct 38.5 (37.0-47.0) % MCV 94.1 (80-100) fl MCH 31.1 (26-34) pg MCHC 33.0 (32-36) g/dl RDW 12.0 (11.5-14.5) % Plt Count 302 (150-375) k/mm3 MPV 8.8 (7.4-10.4) fl Immature Gran % (Auto) 0.3 (0-0.5) % Neut % (Auto) 69.3 (45.5-73.1) % Lymph % (Auto) 24.5 (18.3-44.2) % [place] % (Auto) 5.5 (2.6-8.5) % Eos % (Auto) 0.1 (0-4.4) % Baso % (Auto) 0.3 (0.2-1.2) % Lymph # (Auto) 1.65 (0.9-3.2) K/mm3 [place] # (Auto) 0.4 (0.1-0.6) K/mm3 Eos # (Auto) 0.0 (0-0.3) K/mm3 Baso # (Auto) 0.0 (0.0-0.1) K/mm3 Abs Immat Gran (auto) 0.02 (0.00-0.031) K/mm3 Absolute Neuts (auto) 4.7 (1.3-6.7) K/mm3 Absolute Nucleated RBC 0.000 (0.0-0.012) K/mm3 Nucleated RBC % 0.0 (0.0-0.2) % D-Dimer (<0.48) ug/mL Sodium 138 (137-145) mmol/L Potassium 3.8 (3.4-5.0) mmol/L Chloride 107 (98-107) mmol/L Carbon Dioxide 21 L (22-30) mmol/L Anion Gap 10 (4-12) mmol/L BUN 9 (7-17) mg/dL Creatinine 0.69 L (0.7-1.0) mg/dL Estim Creat Clear Calc 112 ml/min Estimated GFR > 60 (59 - ) Glucose 99 (65-110) mg/dL Calcium 9.2 (8.4-10.2) mg/dL Total Bilirubin 1.3 (0.2-1.3) mg/dL AST 190 H (14-36) U/L ALT 109 H (6-35) U/L Alkaline Phosphatase 99 (38-126) U/L Total Protein 8.0 (6.3-8.2) g/dL Albumin 4.3 (3.5-5.1) g/dL Lipase 124 (23-300) U/L Urine Color Dark yellow (Yellow) Urine Appearance Cloudy H (Clear) Urine pH 6.0 (5.0-9.0) Ur Specific [place] 1.027 (1.001-1.035) Urine Protein Trace (Negative) mg/dL Urine Glucose (UA) Negative (Negative) mg/dL Urine Ketones Trace H (Negative) mg/dL Ur Blood (Man) Negative (Negative) Urine Nitrate Negative (Negative) Urine Bilirubin 2+ H (Negative) Urine Urobilinogen 1.0 (<2.0) mg/dL Add Ur Microanalysis Reviewed Leukocyte Esterase Rfl 3+ H (Negative) GUILLERMINA/UL Urine RBC 3-5 H (0-2) /hpf Urine WBC 21-50 H (0-3) /hpf Ur Squamous Epith Cells Few (Few) /hpf Urine Bacteria 4+ H /hpf Urine Casts 3-5 POC Urine HCG, Qual Negative (Negative) 12/03/24 Range/Units 09:33 WBC (4.5-10.0) K/mm3 RBC (4.2-5.4) M/mm3 Hgb (12.0-15.0) g/dL Hct (37.0-47.0) % MCV (80-100) fl MCH (26-34) pg MCHC (32-36) g/dl RDW (11.5-14.5) % Plt Count (150-375) k/mm3 MPV (7.4-10.4) fl Immature Gran % (Auto) (0-0.5) % Neut % (Auto) (45.5-73.1) % Lymph % (Auto) (18.3-44.2) % [place]. [place] % (Auto) (2.6-8.5) % Eos % (Auto) (0-4.4) % Baso % (Auto) (0.2-1.2) % Lymph # (Auto) (0.9-3.2) K/mm3 [place] # (Auto) (0.1-0.6) K/mm3 Eos # (Auto) (0-0.3) K/mm3 Baso # (Auto) (0.0-0.1) K/mm3 Abs Immat Gran (auto) (0.00-0.031) K/mm3 Absolute Neuts (auto) (1.3-6.7) K/mm3 Absolute Nucleated RBC (0.0-0.012) K/mm3 Nucleated RBC % (0.0-0.2) % D-Dimer 0.59 H (<0.48) ug/mL Sodium (137-145) mmol/L Potassium (3.4-5.0) mmol/L Chloride (98-107) mmol/L Carbon Dioxide (22-30) mmol/L Anion Gap (4-12) mmol/L BUN (7-17) mg/dL Creatinine (0.7-1.0) mg/dL Estim Creat Clear Calc ml/min Estimated GFR (59 - ) Glucose (65-110) mg/dL Calcium (8.4-10.2) mg/dL Total Bilirubin (0.2-1.3) mg/dL AST (14-36) U/L ALT (6-35) U/L Alkaline Phosphatase (38-126) U/L Total Protein (6.3-8.2) g/dL Albumin (3.5-5.1) g/dL Lipase (23-300) U/L Urine Color (Yellow) Urine Appearance (Clear) Urine pH (5.0-9.0) Ur Specific [place] (1.001-1.035) Urine Protein (Negative) mg/dL Urine Glucose (UA) (Negative) mg/dL Urine Ketones (Negative) mg/dL Ur Blood (Man) (Negative) Urine Nitrate (Negative) Urine Bilirubin (Negative) Urine Urobilinogen (<2.0) mg/dL Add Ur Microanalysis Leukocyte Esterase Rfl (Negative) GUILLERMINA/UL Urine RBC (0-2) /hpf Urine WBC (0-3) /hpf Ur Squamous Epith Cells (Few) /hpf Urine Bacteria /hpf Urine Casts POC Urine HCG, Qual (Negative) Imaging Data Radiologist's impression: ITS Impressions Abdomen/Pelvis CT 12/03/24 10:00 IMPRESSION: 1. No acute intra-abdominal/pelvic process. Chest X-Ray 12/03/24 10:17 Impression: Normal chest. Discharge Plan Discharge Clinical Impression: Transaminitis, Right upper quadrant abdominal pain Patient Disposition: Home Condition: Stable Instructions: Antibiotic Form, Abdominal Pain (ED), Transaminitis (ED) Additional Instructions: You were evaluated in the emergency department for right upper quadrant abdominal pain. Your workup shows a possible urinary tract infection, he was started on antibiotics for this. Diflucan was also sent to [facility] developing infection. Your lab work shows elevation in your liver enzymes, your AST is 190 and ALT is 109. Your alk-phos and bilirubin are normal. The CT scan shows no acute findings. The elevation in your liver enzymes may be due to a possible stone or other pathology within her biliary tree as discussed. 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 Please take the medications as directed as needed and follow-up closely with the GI provider. Return to the emergency department if you develop worsening pain, fever 100.4 or greater, you are unable to tolerate food or fluids, or other concerning symptoms. Patient Language: Belizean Prescriptions: New ondansetron 4 mg tablet,disintegrating 4 mg PO Q8H Qty: 14 0RF naproxen 500 mg tablet 500 mg PO BID PRN (Reason: pain) Qty: 20 0RF cephalexin 500 mg capsule 500 mg PO Q6H Qty: 28 0RF No Action norethindrone-e.estradiol-iron 1 mg-20 mcg (24)/75 mg (4) tablet 1 tablet PO DAILY Qty: 84 2RF Follow-up/Referrals: PHYSICIAN,PROMOS EXECUTIVE PRODUCER [Non-Staff] - Arpit Medina MD [Physician] -
[2024-12-03 09:43] LABS: Alanine Aminotransferase 109 U/L (6-35); Albumin Level 4.3 g/dL (3.5-5.1); Alkaline Phosphatase 99 U/L (38-126); Anion Gap 10 mmol/L (4-12); Aspartate Amino Transferase 190 U/L (14-36); Bilirubin,Total 1.3 mg/dL (0.2-1.3); Blood Urea Nitrogen 9 mg/dL (7-17); Calcium 9.2 mg/dL (8.4-10.2); Carbon Dioxide 21 mmol/L (22-30); Chloride 107 mmol/L (98-107); Estimated CRCL calculation 112 ml/min; Estimated Glomerular Filt Rate > 60; Glucose 99 mg/dL (65-110); Lipase 124 U/L (23-300); Potassium 3.8 mmol/L (3.4-5.0); Sodium 138 mmol/L (137-145)
[2024-12-03 09:51] LABS: Add Urine Microscopic? YES; Appearance Urine Cloudy (Clear); Bacteria Urine 4+ /hpf; Bilirubin Urine 2+ (Negative); Blood Urine Negative (Negative); Color Urine Dark Yellow (Yellow); Glucose Urine UA Negative (Negative); Ketones Urine Trace mg/dL (Negative); Leukocyte Esterase Ur 3+ LEU/UL (Negative); Need Manual Microscopic Reviewed; Nitrate Urine Negative (Negative); Protein Urine Trace mg/dL (Negative); Specific Grav Ur 1.027 (1.001-1.035); Squamous Epithelial Cell Urine Few /hpf (Few); WBC Urine 21-50 /hpf (0-3)
--- OUTSIDE RECORDS SUMMARY | 2024-12-03 10:04 | XMS_ITS | Clinical Summary ---
Author Organization [facility] [employer] Address [address] [place] [address] Care Team Providers Care Veneer Patcher Name Role Phone Unavailable Primary Care Provider Unavailabl e Source Comments [facility] [employer],non-owned Affiliates and Associated Physician Practices is amultiple site organization consisting of ambulatory clinics and hospital sitesin [place], [place], [place] and [place]. This disclosure is being madepursuant to the Care Everywhere program and may not contain all information available regarding this patient. Last updated 18.[facility] [employer] Allergies No known active allergies Medications * [...] not taking.Reported on 09/07/2020 Norgestim-Eth Estrad Triphasic ([id number]-NS-RGZDUS LLA PO) Active Active Problems Problem Noted [...] on file Legal Sex Female 5:40 AM BRIDAL STYLIST SALES CONSULTANT Gender Identity Not on file Sexual Orientation Not on file Last Filed Vital Signs Vital Sign Reading Time Taken Comments Blood Pressure 100/60 09/09/2020 10:12 AM BRIDAL STYLIST SALES CONSULTANT Pulse 78 09/09/2020 10:12 AM BRIDAL STYLIST SALES CONSULTANT Temperature 36.7 C (98 F) 09/09/2020 10:12 AM BRIDAL STYLIST SALES CONSULTANT Respiratory Rate 16 09/09/2020 10:12 AM BRIDAL STYLIST SALES CONSULTANT Oxygen Saturation 98% 09/09/2020 10:12 AM BRIDAL STYLIST SALES CONSULTANT Inhaled Oxygen Concentration - - Weight 81.6 kg (180 lb) 09/09/2020 10:12 AM BRIDAL STYLIST SALES CONSULTANT Height 165.1 cm (5' 5 ) 09/09/2020 10:12 AM BRIDAL STYLIST SALES CONSULTANT Body Mass Index 29.95 09/09/2020 10:12 AM BRIDAL STYLIST SALES CONSULTANT Plan of Treatment Health Maintenance Due Date [...] age to complete this topic Insurance [facility] Address: [facility] [id number] [place] [address] ANTHEM
--- OUTSIDE RECORDS SUMMARY | 2024-12-03 10:04 | XMS_ITS | Clinical Summary ---
Author Organization [facility] [address] Address [address] [place] [id number] Care Team Providers Care Financial Services Director Name Role Phone Unknown, Notinfile Primary Care [...] on file Legal Sex Female 6:03 AM DATA CODER OPERATOR Gender Identity Not on file Sexual Orientation Not on file Obstetrics History Last Filed Vital Signs Vital Sign Reading Time Taken Comments Blood Pressure 114/78 07/10/2024 4:01 PM DATA CODER OPERATOR Pulse 90 07/10/2024 4:01 PM DATA CODER OPERATOR Temperature 36.6 C (97.9 F) 07/10/2024 4:01 PM DATA CODER OPERATOR Respiratory Rate 20 07/10/2024 4:01 PM DATA CODER OPERATOR Oxygen Saturation 98% 07/10/2024 4:01 PM DATA CODER OPERATOR Inhaled Oxygen Concentration - - Weight 76.2 kg (168 lb) 07/10/2024 4:01 PM DATA CODER OPERATOR Height 165.1 cm (5' 5 ) 07/27/2022 2:10 PM DATA CODER OPERATOR Body Mass Index 27.96 07/27/2022 2:10 PM DATA CODER OPERATOR Plan of Treatment Health Maintenance Due Date [...] HPV Vaccines Completed 10/27/2013, 04/21, 03/02/2013 Insurance [employer] [employer] [place] [employer] [place] Care Teams Financial Services Director Relationship Specialty Start Date End Date Unknown, Notinfile PCP - General 07/10/24
--- OUTSIDE RECORDS SUMMARY | 2024-12-03 10:04 | XMS_ITS | Clinical Summary ---
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
--- OUTSIDE RECORDS SUMMARY | 2024-12-03 10:05 | XMS_ITS | Referral Summary ---
Author Organization [facility] [address] Address [address] [place] [id number] Care Team Providers Care Grant Specialist Name Role Phone Unknown, Notinfile Primary Care [...] on file Legal Sex Female 6:03 AM CEMENT FINISHER Gender Identity Not on file Sexual Orientation Not on file Last Filed Vital Signs Vital Sign Reading Time Taken Comments Blood Pressure 114/78 07/10/2024 4:01 PM CEMENT FINISHER Pulse 90 07/10/2024 4:01 PM CEMENT FINISHER Temperature 36.6 C (97.9 F) 07/10/2024 4:01 PM CEMENT FINISHER Respiratory Rate 20 07/10/2024 4:01 PM CEMENT FINISHER Oxygen Saturation 98% 07/10/2024 4:01 PM CEMENT FINISHER Inhaled Oxygen Concentration - - Weight 76.2 kg (168 lb) 07/10/2024 4:01 PM CEMENT FINISHER Height 165.1 cm (5' 5 ) 07/27/2022 2:10 PM CEMENT FINISHER Body Mass Index 27.96 07/27/2022 2:10 PM CEMENT FINISHER Plan of Treatment Not on file Insurance [employer] [place] [employer] [facility] Care Teams Grant Specialist Relationship Specialty Start Date End Date Unknown, Notinfile PCP - General 07/10/24
--- OUTSIDE RECORDS SUMMARY | 2024-12-03 10:05 | XMS_ITS | Clinical Summary ---
Author Organization [facility] Address [facility] [place] [address] Care Team Providers Care Headend Technician Name Role Phone Unavailable Primary Care Provider [...]
[2024-12-03] MEDS: KETOROLAC 30 MG/ML VIAL (*BKC) 15 MG IV PUSH (10:07)
[2024-12-03] MEDS: SODIUM CHLORIDE 0.9% IV 1,000 ML 999 ML IV CONT (10:08)
[2024-12-03] MEDS: ONDANSETRON INJ 4 MG/2 ML VIAL IV PUSH (10:08)
[2024-12-03] MEDS: FAMOTIDINE 20 MG/2 ML VIAL IV PUSH (10:08)
[2024-12-03 10:09] LABS: D Dimer 0.59 ug/mL (<0.48)
[2024-12-03] MEDS: MORPHINE SULFATE (*CRX) 4 MG/ML INJ IV PUSH (10:51)
[2024-12-03] MEDS: METOCLOPRAMIDE HCL INJ 10 MG/2 ML VIAL IV PUSH (10:55)
[2024-12-03 10:59] VITALS: BP 108/77; PULSE 94; RESP 17; O2SAT 100
--- NOTE | 2024-12-03 11:13 | PC.NURSE ---
bedside shift report received from Ashley ENGLAND, taking over patient care at this time
[2024-12-03] MEDS: CEPHALEXIN 500 MG CAPSULE PO (11:26)
[2024-12-03 11:30] VITALS: TEMP 37.2
== END 2024-12-03 11:32 | disposition home or self-care (01) ==
PROVIDERS: Emergency Medicine; Emergency Provider Physician Assistant
DX: R10.11 Right upper quadrant pain (principal); R74.01 Elevation of levels of liver transaminase levels; Z90.49 Acquired absence of other specified parts of digestive tract
CPT/HCPCS: 36415; 71046; 74177; 80053; 81001; 81025; 83690; 85025; 85380; 87086; 93005; 96361; 96374; 96375; 99284; A9270; J1885; J2270; J2405; J2765; J7030; Q9967

== ENCOUNTER 2024-12-09 10:43 | Outpatient (CLI) | payer BC, SELFPAY ==
[2024-12-09 11:08] LABS: Hematocrit 39.4 % (37.0-47.0); Hemoglobin 12.8 g/dL (12.0-15.0); Mean Corpuscular HGB Conc 32.5 g/dl (32-36); Mean Corpuscular Hemoglobin 31.1 pg (26-34); Mean Corpuscular Volume 95.6 fl (80-100); Mean Platelet Volume 9.2 fl (7.4-10.4); Platelet Count Result 324 k/mm3 (150-375); Red Blood Count 4.12 M/mm3 (4.2-5.4); Red Cell Distribution Width 12.2 % (11.5-14.5); White Blood Count 4.7 K/mm3 (4.5-10.0)
--- OUTSIDE RECORDS SUMMARY | 2024-12-09 11:18 | XMS_ITS | Clinical Summary ---
Author Organization [facility] Address [address] [place] [address] Care Team Providers Care Magnetic Tape Winder Name Role Phone Unavailable Primary Care Provider Unavailabl e Source Comments [facility],non-owned Affiliates and Associated Physician Practices is amultiple site organization consisting of ambulatory clinics and hospital sitesin [place], [place], [place] and [place]. This disclosure is being madepursuant to the Care Everywhere program and may not contain all information available regarding this patient. Last updated 18.[facility] Allergies No known active allergies Medications * [...] not taking.Reported on 09/07/2020 Norgestim-Eth Estrad Triphasic ([id number] LLA PO) Active Active Problems Problem Noted [...] on file Legal Sex Female 5:40 AM UNIVERSITY EXTENSION SPECIALIST Gender Identity Not on file Sexual Orientation Not on file Last Filed Vital Signs Vital Sign Reading Time Taken Comments Blood Pressure 100/60 09/09/2020 10:12 AM UNIVERSITY EXTENSION SPECIALIST Pulse 78 09/09/2020 10:12 AM UNIVERSITY EXTENSION SPECIALIST Temperature 36.7 C (98 F) 09/09/2020 10:12 AM UNIVERSITY EXTENSION SPECIALIST Respiratory Rate 16 09/09/2020 10:12 AM UNIVERSITY EXTENSION SPECIALIST Oxygen Saturation 98% 09/09/2020 10:12 AM UNIVERSITY EXTENSION SPECIALIST Inhaled Oxygen Concentration - - Weight 81.6 kg (180 lb) 09/09/2020 10:12 AM UNIVERSITY EXTENSION SPECIALIST Height 165.1 cm (5' 5 ) 09/09/2020 10:12 AM UNIVERSITY EXTENSION SPECIALIST Body Mass Index 29.95 09/09/2020 10:12 AM UNIVERSITY EXTENSION SPECIALIST Plan of Treatment Health Maintenance Due Date [...]
--- OUTSIDE RECORDS SUMMARY | 2024-12-09 11:18 | XMS_ITS | Clinical Summary ---
Author Organization [facility] [address] Address [address] [place] [phone] Care Team Providers Care Felt Hat Steamer Name Role Phone Unknown, Notinfile Primary Care [...] on file Legal Sex Female 6:03 AM MANAGER TALENT ACQUISITION Gender Identity Not on file Sexual Orientation Not on file Obstetrics History Last Filed Vital Signs Vital Sign Reading Time Taken Comments Blood Pressure 114/78 07/10/2024 4:01 PM MANAGER TALENT ACQUISITION Pulse 90 07/10/2024 4:01 PM MANAGER TALENT ACQUISITION Temperature 36.6 C (97.9 F) 07/10/2024 4:01 PM MANAGER TALENT ACQUISITION Respiratory Rate 20 07/10/2024 4:01 PM MANAGER TALENT ACQUISITION Oxygen Saturation 98% 07/10/2024 4:01 PM MANAGER TALENT ACQUISITION Inhaled Oxygen Concentration - - Weight 76.2 kg (168 lb) 07/10/2024 4:01 PM MANAGER TALENT ACQUISITION Height 165.1 cm (5' 5 ) 07/27/2022 2:10 PM MANAGER TALENT ACQUISITION Body Mass Index 27.96 07/27/2022 2:10 PM MANAGER TALENT ACQUISITION Plan of Treatment Health Maintenance Due Date [...] HPV Vaccines Completed 10/27/2013, 04/21, 03/02/2013 Insurance [email or web address] [facility] [email or web address] CHOICE [place] [email or web address] CHO[employer] [place] Care Teams Felt Hat Steamer Relationship Specialty Start Date End Date Unknown, Notinfile PCP - General 07/10/24
--- OUTSIDE RECORDS SUMMARY | 2024-12-09 11:18 | XMS_ITS | Clinical Summary ---
Author Organization [facility] Address [address] [place] [address] Care Team Providers Care International Accounting Manager Name Role Phone Unavailable Primary Care Provider Unavailabl e Allergies No known active allergies Medications No known medications Active Problems No known active problems Social History Tobacco Use Types Packs/Day Years Used Date Smoking Tobacco: Never Assessed Comments Unknown Sex and Gender Information Value Date Recorded Sex Assigned at Not on file Legal Sex Female 10:34 AM BREAKFAST HOST Gender Identity Not on file Sexual Orientation [...] SMEAR 2022 INFLUENZA VACCINE (#1) 2024 Insurance [facility]
--- OUTSIDE RECORDS SUMMARY | 2024-12-09 11:19 | XMS_ITS | Referral Summary ---
Author Organization [facility] [address] [place] Address [address] [place] [phone] Care Team Providers Care Seo Team Lead Name Role Phone Unknown, Notinfile Primary Care [...] on file Legal Sex Female 6:03 AM AIRWORTHINESS SAFETY INSPECTOR Gender Identity Not on file Sexual Orientation Not on file Last Filed Vital Signs Vital Sign Reading Time Taken Comments Blood Pressure 114/78 07/10/2024 4:01 PM AIRWORTHINESS SAFETY INSPECTOR Pulse 90 07/10/2024 4:01 PM AIRWORTHINESS SAFETY INSPECTOR Temperature 36.6 C (97.9 F) 07/10/2024 4:01 PM AIRWORTHINESS SAFETY INSPECTOR Respiratory Rate 20 07/10/2024 4:01 PM AIRWORTHINESS SAFETY INSPECTOR Oxygen Saturation 98% 07/10/2024 4:01 PM AIRWORTHINESS SAFETY INSPECTOR Inhaled Oxygen Concentration - - Weight 76.2 kg (168 lb) 07/10/2024 4:01 PM AIRWORTHINESS SAFETY INSPECTOR Height 165.1 cm (5' 5 ) 07/27/2022 2:10 PM AIRWORTHINESS SAFETY INSPECTOR Body Mass Index 27.96 07/27/2022 2:10 PM AIRWORTHINESS SAFETY INSPECTOR Plan of Treatment Not on file Insurance [employer] [place] [employer] [place] [facility] Care Teams Seo Team Lead Relationship Specialty Start Date End Date Unknown, Notinfile PCP - General 07/10/24
[2024-12-09 11:22] LABS: Alanine Aminotransferase 60 U/L (6-35); Albumin Level 4.3 g/dL (3.5-5.1); Alkaline Phosphatase 83 U/L (38-126); Amylase 95 U/L (30-110); Anion Gap 7 mmol/L (4-12); Aspartate Amino Transferase 39 U/L (14-36); Bilirubin,Total 0.5 mg/dL (0.2-1.3); Blood Urea Nitrogen 9 mg/dL (7-17); CRP < 0.5 mg/dL (<1.0); Calcium 9.2 mg/dL (8.4-10.2); Carbon Dioxide 23 mmol/L (22-30); Chloride 108 mmol/L (98-107); Estimated Glomerular Filt Rate > 60; Glucose 85 mg/dL (65-110); Lipase 172 U/L (23-300); Potassium 4.5 mmol/L (3.4-5.0); Sodium 138 mmol/L (137-145)
== END 2024-12-09 10:44 | disposition home or self-care (01) ==
LOC: ANHLAB 10:44
PROVIDERS: Visit Provider Nurse Practitioner
DX: R74.8 Abnormal levels of other serum enzymes (principal)
CPT/HCPCS: 36415; 80053; 82150; 83690; 85027; 86140

== ENCOUNTER 2025-01-13 08:32 | Outpatient (CLI) | payer BC, SELFPAY ==
--- NOTE | ~2025-01-13 | MR_ITS ---
EXAMINATION: MR MRCP wo/w con/w 3D wo ind DATE: 01/13/2025 09:45 INDICATION: Right upper quadrant abdominal pain. Elevated liver function tests. TECHNIQUE: Magnetic resonance imaging (MRI) of the abdomen was performed without and with 14 mL Multi romelia intravenous contrast. Sequences included coronal T2-weighted SS-FSE, coronal T2-weighted FS SS- FSE, coronal T2-weighted FS FIESTA, axial T2-weighted FS FIESTA, axial T2-weighted FIESTA, sagittal T 2-weighted SS-FSE, axial T1-weighted dual-echo FSPGR, axial T2-weighted SS-FSE, axial T1-weighted LAV A, axial T2-weighted STIR FSE. Thick-slab T2-weighted FRFSE-XL images were obtained for magnetic reso nance cholangiopancreatography (MRCP). Rotating maximum intensity projection 3-D reconstructions of t he volumetric data were created by the technologist. Postcontrast sequences included a time course of axial T1-weighted LAVA. COMPARISON: CT dated 12/03/2024 FINDINGS: ABDOMEN MRI: Heart size is normal. No pericardial or pleural effusion. Focal magnetic field artifact associated wi th cholecystectomy clips at the gallbladder fossa. Liver, spleen, pancreas, bilateral adrenal glands and kidneys are normal. Visualized portions of bowels are unremarkable with no obstruction. No pathol ogically enlarged abdominal or upper pelvic lymphadenopathy. Mild lumbar levocurvature with mild lowe r lumbar spondylosis. Bone marrow signal is normal throughout. ABDOMEN MRCP: Normal caliber common bile duct measuring 4 mm maximal diameter tapering at the distal duct with no i ntraluminal filling defects to suggest choledocholithiasis. No intrahepatic biliary ductal dilation. Main pancreatic duct is normal. IMPRESSION: 1. Status post cholecystectomy. Otherwise unremarkable MRI/MRCP with no evident choledocholithiasis o r intra/extrahepatic biliary ductal dilation. Reviewed, dictated and finalized at location A. IMPRESSION: 1. Status post cholecystectomy. Otherwise unremarkable MRI/MRCP with no evident choledocholithiasis or intra/extrahepatic biliary ductal dilation.
== END 2025-01-13 08:33 | disposition home or self-care (01) ==
PROVIDERS: Visit Provider Nurse Practitioner
DX: R74.8 Abnormal levels of other serum enzymes (principal); R10.11 Right upper quadrant pain; Z90.49 Acquired absence of other specified parts of digestive tract
CPT/HCPCS: 74183; 76376; A9577

== ENCOUNTER 2025-02-04 11:11 | Outpatient (CLI) | payer BC, SELFPAY ==
--- OUTSIDE RECORDS SUMMARY | 2025-02-04 11:27 | XMS_ITS | Clinical Summary ---
Author Organization [facility] [address] [place] Address [address] [place] [phone] Care Team Providers Care Technical Internship Name Role Phone Unknown, Notinfile Primary Care [...] on file Legal Sex Female 6:03 AM LAYOUT FORMER Gender Identity Not on file Sexual Orientation Not on file Obstetrics History Last Filed Vital Signs Vital Sign Reading Time Taken Comments Blood Pressure 114/78 07/10/2024 4:01 PM LAYOUT FORMER Pulse 90 07/10/2024 4:01 PM LAYOUT FORMER Temperature 36.6 C (97.9 F) 07/10/2024 4:01 PM LAYOUT FORMER Respiratory Rate 20 07/10/2024 4:01 PM LAYOUT FORMER Oxygen Saturation 98% 07/10/2024 4:01 PM LAYOUT FORMER Inhaled Oxygen Concentration - - Weight 76.2 kg (168 lb) 07/10/2024 4:01 PM LAYOUT FORMER Height 165.1 cm (5' 5) 07/27/2022 2:10 PM LAYOUT FORMER Body Mass Index 27.96 07/27/2022 2:10 PM LAYOUT FORMER Plan of Treatment Health Maintenance Due Date Last Done Comments Cervical Cancer Screening 2001 Depression Screening 2001 Hepatitis C Screening 2001 Meningococcal B Vaccine (1 o f 2 - Standard) 2017 Regular Well Visit/Exam 18-64 2019 DTaP/Tdap/Td Vaccine (7 - Td or Tdap) 03/02/2023 03/02/2013, 10/21/2006, 10/26/2002, Additional history exists Covid-19 Vaccine (2 - 2023-2 5 season) 2024 10/29/2020 Influenza Vaccine (Season Ended) 2025 04/27/20 22 Hepatitis B Screening Completed 02/05/2002 , 2001, 2001 Pneumococcal vaccine <65 Completed 003, 2001, 2001, Additional history exists Varicella Vaccines Completed 01/21/2008, 04/20/2002 HPV Vaccines Completed 10/27/2013, 04/21, 03/02/2013 Insurance [employer] [facility] [employer] [place] [employer] [place] Care Teams Technical Internship Relationship Specialty Start Date End Date Unknown, Notinfile PCP - General 07/10/24
--- OUTSIDE RECORDS SUMMARY | 2025-02-04 11:27 | XMS_ITS | Clinical Summary ---
Author Organization [facility] [employer] Address [address] [place] [address] Care Team Providers Care Medicine Aide Name Role Phone Unavailable Primary Care Provider Unavailabl e Source Comments [facility] [employer],non-owned Affiliates and Associated Physician Practices is amultiple site organization consisting of ambulatory clinics and hospital sitesin [place], [place], [place] and [place]. This disclosure is being madepursuant to the Care Everywhere program and may not contain all information available regarding this patient. Last updated 18.[facility] [employer] Allergies No known active allergies Medications * [...] 6 hours as needed for Pain Active JUNE08/10 1-20 MG-MCG tablet Take 1 tablet by [...] not taking.Reported on 09/07/2020 Norgestim-Eth Estrad Triphasic ([id number] LLA PO) Active Active Problems Problem Noted [...] on file Legal Sex Female 5:40 AM UX DESIGN MANAGER Gender Identity Not on file Sexual Orientation Not on file Last Filed Vital Signs Vital Sign Reading Time Taken Comments Blood Pressure 100/60 09/09/2020 10:12 AM UX DESIGN MANAGER Pulse 78 09/09/2020 10:12 AM UX DESIGN MANAGER Temperature 36.7 C (98 F) 09/09/2020 10:12 AM UX DESIGN MANAGER Respiratory Rate 16 09/09/2020 10:12 AM UX DESIGN MANAGER Oxygen Saturation 98% 09/09/2020 10:12 AM UX DESIGN MANAGER Inhaled Oxygen Concentration - - Weight 81.6 kg (180 lb) 09/09/2020 10:12 AM UX DESIGN MANAGER Height 165.1 cm (5' 5) 09/09/2020 10:12 AM UX DESIGN MANAGER Body Mass Index 29.95 09/09/2020 10:12 AM UX DESIGN MANAGER Plan of Treatment Health Maintenance Due Date Last Done Comments HIV SCREENING 2016 HPV VACCINE (1 - 3-dose series) 2016 CHLAMYDIA/GONORRHEA SCREENING 2017 MENINGOCOCCAL (Group B) VACC INE SHARED DECISION-MAKING (1 of 2 - Standard) 2017 HEPATITIS C SCREENING 04/14/2019 DTAP/TDAP/TD VACCINES (1 - Tdap) 2020 HEPATITIS B VACCINE (1 of 3 - 19+ 3-dose series) 2020 COVID-19 VACCINE (2023-2 5 season) 2024 DEPRESSION SCREENING 07/22/2024 INFLUENZA VACCINE (#1) 2025 ZOSTER VACCINE (1 of 2) 2051 [...]
--- OUTSIDE RECORDS SUMMARY | 2025-02-04 11:27 | XMS_ITS | Clinical Summary ---
Author Organization [facility] Address [address] [place] [address] Care Team Providers Care Grinding Machine Tender Name Role Phone Unavailable Primary Care Provider Unavailabl e Allergies No known active allergies Medications No known medications Active Problems No known active problems Social History Tobacco Use Types Packs/Day Years Used Date Smoking Tobacco: Never Assessed Comments Unknown Sex and Gender Information Value Date Recorded Sex Assigned at Not on file Legal Sex Female 10:34 AM GLASS EDGER Gender Identity Not on file Sexual Orientation Not on file Plan of Treatment Health Maintenance Due Date Last Done Comments CHLAMYDIA SCREENING (ANNUAL) 11-24 YEARS 2012 HPV VACCINES (1 - 3-dose series) 2016 DTAP/TDAP/TD VACCINES (1 - Tdap) 2020 HEPATITIS B VACCINES (1 of 3 - 19+ 3-dose series) 03/23 CERVICAL CANCER SCREENING 2022 HPV/Cotest (21-29) 2022 PAP SMEAR 2022 INFLUENZA VACCINE (#1) 2025 Insurance [facility]
--- OUTSIDE RECORDS SUMMARY | 2025-02-04 11:27 | XMS_ITS | Referral Summary ---
Author Organization [facility] [address] [place] Address [address] [place] [phone] Care Team Providers Care Recycling Program Manager Name Role Phone Unknown, Notinfile Primary Care [...] on file Legal Sex Female 6:03 AM ON SITE CONSTRUCTION SUPERINTENDENT Gender Identity Not on file Sexual Orientation Not on file Last Filed Vital Signs Vital Sign Reading Time Taken Comments Blood Pressure 114/78 07/10/2024 4:01 PM ON SITE CONSTRUCTION SUPERINTENDENT Pulse 90 07/10/2024 4:01 PM ON SITE CONSTRUCTION SUPERINTENDENT Temperature 36.6 C (97.9 F) 07/10/2024 4:01 PM ON SITE CONSTRUCTION SUPERINTENDENT Respiratory Rate 20 07/10/2024 4:01 PM ON SITE CONSTRUCTION SUPERINTENDENT Oxygen Saturation 98% 07/10/2024 4:01 PM ON SITE CONSTRUCTION SUPERINTENDENT Inhaled Oxygen Concentration - - Weight 76.2 kg (168 lb) 07/10/2024 4:01 PM ON SITE CONSTRUCTION SUPERINTENDENT Height 165.1 cm (5' 5) 07/27/2022 2:10 PM ON SITE CONSTRUCTION SUPERINTENDENT Body Mass Index 27.96 07/27/2022 2:10 PM ON SITE CONSTRUCTION SUPERINTENDENT Plan of Treatment Not on file Insurance [employer] [place] [employer] [place] [facility] Care Teams Recycling Program Manager Relationship Specialty Start Date End Date Unknown, Notinfile PCP - General 07/10/24
[2025-02-04 12:49] LABS: Alanine Aminotransferase 39 U/L (6-35); Albumin Level 4.0 g/dL (3.5-5.1); Alkaline Phosphatase 60 U/L (38-126); Aspartate Amino Transferase 39 U/L (14-36); Bilirubin,Total 0.4 mg/dL (0.2-1.3); Total Protein 7.4 g/dL (6.3-8.2)
== END 2025-02-04 11:12 | disposition home or self-care (01) ==
LOC: ANHLAB 11:12
PROVIDERS: Visit Provider Nurse Practitioner
DX: K83.4 Spasm of sphincter of Oddi (principal); R74.8 Abnormal levels of other serum enzymes
CPT/HCPCS: 36415; 80076

== ENCOUNTER 2025-02-08 10:19 | Outpatient (CLI) | payer BC, SELFPAY ==
--- OUTSIDE RECORDS SUMMARY | 2025-02-08 10:34 | XMS_ITS | Referral Summary ---
Author Organization [facility] [address] [place] Address [address] [place] [phone] Care Team Providers Care Land Surveying Party Chief Name Role Phone Unknown, Notinfile Primary Care [...] on file Legal Sex Female 6:03 AM MARKETING COMMUNICATION MANAGER Gender Identity Not on file Sexual Orientation Not on file Last Filed Vital Signs Vital Sign Reading Time Taken Comments Blood Pressure 114/78 07/10/2024 4:01 PM MARKETING COMMUNICATION MANAGER Pulse 90 07/10/2024 4:01 PM MARKETING COMMUNICATION MANAGER Temperature 36.6 C (97.9 F) 07/10/2024 4:01 PM MARKETING COMMUNICATION MANAGER Respiratory Rate 20 07/10/2024 4:01 PM MARKETING COMMUNICATION MANAGER Oxygen Saturation 98% 07/10/2024 4:01 PM MARKETING COMMUNICATION MANAGER Inhaled Oxygen Concentration - - Weight 76.2 kg (168 lb) 07/10/2024 4:01 PM MARKETING COMMUNICATION MANAGER Height 165.1 cm (5' 5) 07/27/2022 2:10 PM MARKETING COMMUNICATION MANAGER Body Mass Index 27.96 07/27/2022 2:10 PM MARKETING COMMUNICATION MANAGER Plan of Treatment Not on file [place] [place] [employer] [place] [facility] Care Teams Land Surveying Party Chief Relationship Specialty Start Date End Date Unknown, Notinfile PCP - General 07/10/24
--- OUTSIDE RECORDS SUMMARY | 2025-02-08 10:34 | XMS_ITS | Clinical Summary ---
Author Organization [facility] Address [address] [place] [address] Care Team Providers Care Manager Supply Chain Planning Name Role Phone Unavailable Primary Care Provider Unavailabl e Source Comments [facility],non-owned Affiliates and Associated Physician Practices is amultiple site organization consisting of ambulatory clinics and hospital sitesin [place], [place], [place] and [place]. This disclosure is being madepursuant to the Care Everywhere program and may not contain all information available regarding this patient. Last updated 18.[facility] Allergies No known active allergies Medications * [...] not taking.Reported on 09/07/2020 Norgestim-Eth Estrad Triphasic ([id number] LLA PO) Active Active Problems Problem Noted [...] on file Legal Sex Female 5:40 AM BASKET MAKER Gender Identity Not on file Sexual Orientation Not on file Last Filed Vital Signs Vital Sign Reading Time Taken Comments Blood Pressure 100/60 09/09/2020 10:12 AM BASKET MAKER Pulse 78 09/09/2020 10:12 AM BASKET MAKER Temperature 36.7 C (98 F) 09/09/2020 10:12 AM BASKET MAKER Respiratory Rate 16 09/09/2020 10:12 AM BASKET MAKER Oxygen Saturation 98% 09/09/2020 10:12 AM BASKET MAKER Inhaled Oxygen Concentration - - Weight 81.6 kg (180 lb) 09/09/2020 10:12 AM BASKET MAKER Height 165.1 cm (5' 5) 09/09/2020 10:12 AM BASKET MAKER Body Mass Index 29.95 09/09/2020 10:12 AM BASKET MAKER Plan of Treatment Health Maintenance Due Date [...]
--- OUTSIDE RECORDS SUMMARY | 2025-02-08 10:34 | XMS_ITS | Clinical Summary ---
Author Organization [facility] Address [address] [place] [address] Care Team Providers Care Roving Carrier Name Role Phone Unavailable Primary Care Provider Unavailabl e Allergies No known active allergies Medications No known medications Active Problems No known active problems Social History Tobacco Use Types Packs/Day Years Used Date Smoking Tobacco: Never Assessed Comments Unknown Sex and Gender Information Value Date Recorded Sex Assigned at Not on file Legal Sex Female 10:34 AM FISHER HOOP NET Gender Identity Not on file Sexual Orientation [...] SMEAR 2022 INFLUENZA VACCINE (#1) 2025 Insurance [facility]
--- OUTSIDE RECORDS SUMMARY | 2025-02-08 10:34 | XMS_ITS | Data Portability ---
Author Organization [facility] Address [address] [place] [address] Care Team Providers Care Claims Administrator Name Role Phone SEVEN PATEL Primary Care Provider [phone] Assessment Encounter Date Assessment Date Assessment LastModified [...] have any questions please call or email. [email or web address] Not available 09/12/2022 10:26:56 09/02/2024 09/02/2024 Annual gynecological exam performed. Patient will come back in a year unless there are new symptoms. [email or web address] Not available 08/28/2024 11:50:06 09/21/2024 09/21/2024 This [...] mcg (24)/75 mg (4) tablet [address] [facility] ([place], [place]Pharmacy #[id number], [address], [place], [address], 5 12:45:34 [place] 24 Fe 1 mg-20 mcg (24)/75 mg (4) tablet [address] [facility] ([place] [place]Pharmacy #[id number], [address], [place], [address], 3 03:34:22 Patient TargetsNo targets recorded. Patient [...] n: Berta Emery, CT Rescr een: Ranjith mpagarry ak, Dewayne ay, CT Speci men: Scree [...] as clini liliane navarrete nted. Not Available [facility] (Lab) [address], [place], [address], 09/17/2022 16:19:46 Result Notes None recorded. Procedures Surgical History Date Name Laterality Status Provider Name and Address Organization Details Recorded Time 09/12/19 23 Date of Last Pap Smear completed [facility] 09/12/2022 10:25:18 08/29/19 Cholecystectomy completed [facility] 09/12/2022 10:27:14 Imaging Results None recorded. [...] Body mass index (BMI) Body weight Systolic And Diastolic Provider Name and Address Organization Details Last Updated DateTime 09/02/2024 163.83 cm 28.1 kg/m2 18368.05 g 111/73 mm[Hg] Missy Rai [facility] 09/02/2024 12:10:39 Date Recorded Body height Body mass index (BMI) Body weight Systolic And Diastolic Provider Name and Address Organization Details Last Updated DateTime 09/12/2022 163.83 cm 40.2 kg/m2 001347.98 g 112/79 mm[Hg] Mirta Barros [facility] 09/12/2022 10:22:40 Date Recorded Body height Body mass index (BMI) Body weight Systolic And Diastolic Provider Name and Address Organization Details Last Updated DateTime 09/21/2024 163.83 cm 28.1 kg/m2 86498.33 g 106/72 mm[Hg] Carisa Humberto [facility] 09/21/2024 15:11:10 Social History Question Answer Notes LastModified by Organizat ion Details LastModified Time Tobacco Smoking Status Never Smoker Mirta Barros [facility], [facility] 09/12/2022 10:27:03 Do You Have An Advance Directive? No [email or web address] Information n ot available 09/02/2024 Are You Blind Or Do You Have Difficulty Seeing? No [email or web address] Information n ot available 09/12/2022 What Is Your Level Of Caffeine Consumption? Occasional [email or web address] Information not available 09/12/2022 How Much Tobacco Do You Chew? None [email or web address] Information not available 09/12/2022 In The 14 Days Before Symptom Onset, Have You Had Close Contact With A Laboratory-confirm ed COVID-19 While That Case Was Ill? No [email or web address] Information n ot available 09/12/2022 In The 14 Days Before Symptom Onset, Have You Had Close Contact With A Person Who Is Under Investigation For COVID-19 While That Person Was Ill? No [email or web address] Information not available 09/12/2022 Have You Been To An Area Known To Be High Risk For COVID-19? No [email or web address] Information not available 09/12/2022 Are You Deaf Or Do You Have Serious Difficulty Hearing? No [email or web address] Information not available 09/12/2022 What Type Of Diet Are You Following? REGULAR [email or web address] Information n ot available 09/12/2022 What Is The Highest Grade Or Level Of School You Have Completed Or The Highest Degree You Have Received? PG43269-4 [email or web address] Information not available 09/12/2022 Are There Any Guns Present In Your Home? No [email or web address] Information not available 09/12/2022 Do You Use Protection During Sex? Always [email or web address] Information not available 09/12/2022 Do You Use Your Seat Belt Or Car Seat Routinely? Yes [email or web address] Information not available 09/12/2022 Do You Have Smoke And Carbon Monoxide Detectors In Your Home? Yes [email or web address] Information not available 09/12/2022 How Much Tobacco Do You Smoke? No [email or web address] Information not available 09/12/2022 Do You Use Sunscreen Routinely? Yes [email or web address] Information not available 09/12/2022 Has Tobacco Cessation Counseling Been Provided? No [email or web address] Information not available 09/12/2022 Have You Used IV Drugs? No [email or web address] Information not available 09/12/2022 Do You Have Difficulty Walking Or Climbing Stairs? No [email or web address] Information not available 09/12/2022 Sex: Unknown Functional Status Question Answer Note LastModified by Organizat ion Details LastModified Time Do you use any illicit or recreational drugs? No Information not available 09/12/2022 Do you or have you ever used any other forms of tobacco or nicotine? No [email or web address] Information not available 09/12/2022 What is your level of alcohol consumption? None Information not available 09/12/2022 Are you able to walk? YESWOREST Information not available 09/12/2022 Are you able to care for yourself? 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 No [email or web address] Information not available 09/12/2022 What is your exercise level? Occasional [email or web address] Information not available 09/12/2022 Mental Status Question Answer Note LastModified by Organization D etails LastModified Time Do you feel stressed (tense, restless, nervous, or anxious, or unable to sleep at night)? [id number] [email or web address] Information not available 09/12/2022 Family History Relationship Description Onset Age of this Age Resolved Age Notes LastModified by Organization Details LastModified Time Father No current problems or disability [email or web address] Not available 08/23 10:26:49 Mother No current problems or disability [email or web address] Not available 08/23 10:26:49 Medical History Condition Response Allergies (Food, seasonal, environmental ) N Other N Breast Cancer N Drug/Latex Allergies/Reactions N Blood Transfusion N Dermatologic Disorders N Lung Disease N Defects or Inherited Disease N Breast Problem N Gestational Diabetes N Hematologic disorders N Anesthesia Complications N History of STI N Deep Vein Thrombosis N Polycystic ovary syndrome N Anxiety Disorder N Autoimmune disease N Arthritis N Infertility N Polyps N Acid Reflux (GERD) N History of abnormal pap N Cancer N Stroke N Varicosities N Neurologic/Epilepsy N Endometriosis N High Cholesterol N Headaches N Fibromyalgia N Kidney Disease N Heart Problems N Kidney or Bladder Problems N Thyroid Problems N GI Problems N Eating Disorder [...] SNOMED-CT Code Diagnosis ICD10 Code Diagnosis Note [id number] Marti Hyde CNM [address] [address] 09/12/2022 09:57:40 09/12/2022 10:47:43 Gynecologic examination 96302772 Z01.419 [id number] Cristian Mayorga MD [place] [address] [address] 09/02/2024 12:03:58 09/02/2024 12:53:18 Gynecologic examination [id number] Z01.419 Annual gynecologi junior exam performed. Patient [...] testing - declined Contracept ion care management [id number] Z30.9 Happy with BC pills. Risks/bene fits reviewed.R efills sent x one year. Hypertrophy of labia 101 [id number] 101 N90.60 Patient c/o pain and irritation during physical activity, when wearing tight clothing, and sometimes during intercours e due to enlarged left labia. Patient highly interested in surgical options for labia reduction. Patient to schedule consult with for labiaplast y of left labia minora. [id number] Cristian Mayorga MD [place] [address] [address] 09/21/2024 14:54:31 09/22/2024 16:32:29 Hypertrophy of labia 3384009256 101 N90.60 Health Concerns Section Related Observation LastModified by Organization Jerrell mclain LastModified Time None Recorded Concern Status LastModified by Organization Details LastModified Time None Recorded Advance Directives Directive N: Payers Insurance Date Sequence Insurance Name Policy Number Policy [place] Covered Member ID Mon[place] Member ID Guarantor Name 09/19/2024 1 [facility] [id number] Chiki Kamara [id number] Chiki Kamara 08/31/2024 1 [employer] [place] [id number] Chiki Kamara [id number] Chiki Kamara 09/11/2022 1 CHRISTINE Kamara [id number] Chiki Kamara Notes Date Note Type [...] bcm Marti Hyde CNM [address], [place], [address], [facility] 09/12/2022 10:30:15 09/02/2024 text/html Annual GYNReport [...] annual well woman exam. MORENO GIBSON NP [address], [place], [address], [facility] 09/02/2024 12:47:22 09/21/2024 text/html This patient [...] consortium. Cristian Mayorga MD [address], [place], [address], [facility] 09/22/2024 12:59:56 OBGyn Episode No OBEpisode recorded.
--- OUTSIDE RECORDS SUMMARY | 2025-02-08 10:34 | XMS_ITS | Clinical Summary ---
Author Organization [facility] [address] Address [address] [place] [id number] Care Team Providers Care Software Configuration Manager Name Role Phone Unknown, Notinfile Primary [...] on file Legal Sex Female 6:03 AM [employer]OCK[employer] Gender Identity Not on file Sexual Orientation Not on file Obstetrics History Last Filed Vital Signs Vital Sign Reading Time Taken Comments Blood Pressure 114/78 07/10/2024 4:01 PM [employer] ST[employer] Pulse 90 07/10/2024 4:01 PM [employer] ST[employer] Temperature 36.6 C (97.9 F) 07/10/2024 4:01 PM [employer] ST[employer]PER Respiratory Rate 20 07/10/2024 4:01 PM W[employer] STOCKKEEPER Oxygen Saturation 98% 07/10/2024 4:01 PM W[employer] STOCKK[employer]PER Inhaled Oxygen Concentration - - Weight 76.2 kg (168 lb) 07/10/2024 4:01 PM W[employer] STOCKK[employer] Height 165.1 cm (5' 5) 07/27/2022 2:10 PM W[employer] ST[employer] Body Mass Index 27.96 07/27/2022 2:10 PM W[employer] STOCKKEEPER Plan of Treatment Health Maintenance Due Date [...] HPV Vaccines Completed 10/27/2013, 04/21, 03/02/2013 Insurance c[facility]pd [facility] clypd CHOICE ME [employer] Care Teams Software Configuration Manager Relationship Specialty Start Date End Date Unknown, Notinfile PCP - General 07/10/24
--- OUTSIDE RECORDS SUMMARY | 2025-02-08 10:35 | XMS_ITS | Data Portability ---
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 Plan of Treatment Reminders Order Date Submit Date Provider Last Modified By Organization Details Last Modified Time Details Appointments None recorded. Lab HbA1c (hemoglobin A1c), blood 2023 024 [facility], [address] [facility], [place], [address], 4 05:50:14 CBC w/ auto diff 2023 024 [facility], [address], [place], [address], 4 05:50:13 TSH, serum or plasma 2023 024 [facility], [address] , [place], [address], 4 05:50:14 lipid panel, serum 2023 024 [facility], [address], [place], [address], 4 05:50:12 CMP, serum or plasma 2023 024 [facility], [address] , [place], [address], 4 05:50:12 lipid panel, serum 2022 023 [facility], [address], [place], [address], 3 06:54:54 CMP, serum or plasma 2022 023 [facility], [address], [place], [address], 3 06:54:56 HbA1c (hemoglobin A1c), blood 2022 023 [facility], [address], [place], [address], 3 06:54:57 TSH, serum, reflex free T4 2022 023 [email or web address] [facility], [address], [place], [address], 3 09:26:56 Referral major gifts officer referral - Please call patient to schedule an appointment . Thank you. 2023 [email or web address] Moses Hwang DPM, [address] [facility], [address], [place], [address], 09:00:17 Procedures None recorded. Surgeries None recorded. Imaging None recorded. Medication Orders Mounjaro 7.5 mg/0.5 mL subcutaneou s pen injector 2023 024 [facility]acy #[id number], [address], [place], [address], 4 10:11:20 amoxicillin 875 mg-potassiu m clavulanate 125 mg tablet 2023 024 [facility]/Pharmacy #[id number], [address], [place], [address], 4 10:11:21 cetirizine 10 mg tablet 2023 024 [id number], [address], [place], [address], 4 10:11:20 Mounjaro 5 mg/0.5 mL subcutaneou s pen injector 2022 023 [email or web address] [id number], [address], [place], [address], 4 17:38:01 Patient TargetsNo targets recorded. Patient InstructionsNo instructions recorded. Reason for Referral [employer] Technician Referral for Ingr owing nail of toe of left foot Please call patient to schedule an appointment. Thank you. Referring Physician: Seven Patel, Family Medicine, Encounter Date: 04/01/2024 Results Created Date Observation Date Name Description Value Unit Range Abnormal Flag Note LastModifiedBy Organization Detail LastModifiedTime 12/21/1912/20/2022 PPD (yolanda fied prote in deriv ative ), skin test TB negati ve Not Available [facility] [address], [place], [address], 12/18/2022 09:33:24 06/17/20 23 06/18/2023 LIPID PANEL , STAND RANDEE cholesterol, total 230 mg/dL <200 high Not Available [facility] [address] [address] [place], [address], 06/18/2023 06:54:54 06/17/20 23 06/18/2023 LIPID PANEL , STAND RANDEE HDL cholesterol 35 mg/dL > or = 50 low Not Available [facility] [address] [place], [address], 06/18/2023 06:54:54 06/17/2006/18/2023 LIPID PANEL , STAND RANDEE triglyceride s [...] Lipid ol. 2015; 9:129 -169. Not Available [facility] [address] [place], [address], 06/18/2023 06:54:54 06/17/20 23 06/18/2023 LIPID PANEL [...] n, which is a valid ated novel jso d provi ding kendall r accur acy than the Fried joo equat ion in the estim ation of LDL-C . Thuy mitchell SS et al. HAN. 2013; 310(1 9): 2061- 2068 (http ://ed ucati on.Qu Lore luu Richard [employer]and Designss. com/f aq/FA Q164) Not Available [facility] [address], [place], [address], 06/18/2023 06:54:54 06/17/2006/18/2023 LIPID PANEL , STAND RANDEE chol/HDLC ratio 6.6 (calc ) <5.0 high Not Available [facility] [address] [place], [address], 06/18/2023 06:54:54 11/27/06/18/2023 LIPID PANEL , STAND RANDEE non HDL cholesterol 195 mg/dL _(junior c) <130 high For patie nts with diabe zee plus 1 major ASCVD risk facto r, treat ing to a non-H DL-C goal of <100 mg/dL (LDL- C of <70 mg/dL ) is kassi salinas optio n. Not Available [address] [address] [place], [address], 06/18/2023 06:54:54 06/17/2006/18/2023 COMPR EHENS JULIANNA METAB OLIC PANEL glucose 99 mg/dL 65-139 normal Non-f astin g refer ence inter alex Not Available [address] [address] [place], [address], 06/18/2023 06:54:56 06/17/2006/18/2023 COMPR EHENS JULIANNA METAB OLIC PANEL urea nitrogen (BUN) 8 mg/dL 7-25 normal Not Available [address] [address] [place], [address], 06/18/2023 06:54:56 06/17/20 23 06/18/2023 COMPR EHENS JULIANNA METAB OLIC PANEL creatinine 0.66 mg/dL 0.50-0 .96 normal Not Available [address] [address] [place], [address], 06/18/2023 06:54:56 06/17/2006/18/2023 COMPR EHENS JULIANNA METAB OLIC PANEL eGFR 127 mL/mi n/1.7 3m2 > or = 60 normal Not Available [address] [place], [address], 06/18/2023 06:54:56 06/17/20 23 06/18/2023 COMPR EHENS JULIANNA METAB OLIC PANEL BUN/creatini ne ratio SEE NOTE: (calc ) 6-22 Not Repor juan pablo: BUN and Creat inine are withi n refer ence range . Not Available [facility] [address], [place], [address], 06/18/2023 06:54:56 06/17/2006/18/2023 COMPR EHENS JULIANNA METAB OLIC PANEL sodium 137 mmol/ L 135-14 6 normal Not Available [address], [address], 06/18/2023 06:54:56 06/17/2006/18/2023 COMPR EHENS JULIANNA METAB OLIC PANEL potassium 4.2 mmol/ L 3.5-5. 3 normal Not Available [address], [address], 06/18/2023 06:54:56 06/17/2006/18/2023 COMPR EHENS JULIANNA METAB OLIC PANEL chloride 105 mmol/ L 98-110 normal Not Available [address], [address], 06/18/2023 06:54:56 06/17/2006/18/2023 COMPR EHENS JULIANNA METAB OLIC PANEL carbon dioxide 25 mmol/ L 20-32 normal Not Available [address], [address], 06/18/2023 06:54:56 06/17/2006/18/2023 COMPR EHENS JULIANNA METAB OLIC PANEL calcium 9.2 mg/dL 8.6-10 .2 normal Not Available [address], [address], 06/18/2023 06:54:56 06/17/2006/18/2023 COMPR EHENS JULIANNA METAB OLIC PANEL protein, total 7.1 g/dL 6.1-8. 1 normal Not Available [address], [address], 06/18/2023 06:54:56 06/17/20 23 06/18/2023 COMPR EHENS JULIANNA METAB OLIC PANEL albumin 4.3 g/dL 3.6-5. 1 normal Not Available [address], [address], 06/18/2023 06:54:56 06/17/20 23 06/18/2023 COMPR EHENS JULIANNA METAB OLIC PANEL globulin 2.8 g/dL_ (calc ) 1.9-3. 7 normal Not Available [address], [address], 06/18/2023 06:54:56 06/17/2006/18/2023 COMPR EHENS JULIANNA METAB OLIC PANEL albumin/glob ulin ratio 1.5 (calc ) 1.0-2. 5 normal Not Available [address], [address], 06/18/2023 06:54:56 06/17/20 23 06/18/2023 COMPR EHENS JULIANNA METAB OLIC PANEL bilirubin, total 0.2 mg/dL 0.2-1. 2 normal Not Available [address], [address], 06/18/2023 06:54:56 06/17/20 23 06/18/2023 COMPR EHENS JULIANNA METAB OLIC PANEL alkaline phosphatase 56 U/L 31-125 normal Not Available [address], [address], 06/18/2023 06:54:56 06/17/20 23 06/18/2023 COMPR EHENS JULIANNA METAB OLIC PANEL AST 22 U/L 10-30 normal Not Available [address], [address], 06/18/2023 06:54:56 06/17/20 23 06/18/2023 COMPR EHENS JULIANNA METAB OLIC PANEL ALT 30 U/L 6-29 high Not Available [address] [address], [place], [address], 06/18/2023 06:54:56 06/17/20 23 06/18/2023 TSH W/REF CHINMAY TO FT4 TSH w/reflex to FT4 2.41 mIU/L normal Refer ence Range > or = 20 Years 0.40- 4.50 Pregn josé Range s First trime ster 0.26- 2.66 Secon d trime ster 0.55- 2.73 Third trime ster 0.43- 2.91 Not Available [facility] [address] [address], [place], [address], 06/18/2023 06:54:57 06/17/2006/18/2023 HEMOG LOBIN A1C hemoglobin A1C 5.1 %_of_ total _HGB <5.7 normal For the purpo se of screcarrie mastersong for the prese nce of diabe zee: [...] Care in Diabe zee(A DA). Not Available [facility] [address], [place], [address], 06/18/2023 06:54:57 04/03/20 24 04/04/2024 LIPID PANEL , STAND RANDEE cholesterol, total 231 mg/dL <200 high Not Available [address] [address] [place], [address], 04/04/2024 05:50:11 04/03/20 24 04/04/2024 LIPID PANEL , STAND RANDEE HDL cholesterol 52 mg/dL > or = 50 normal Not Available [facility] [address] [place], [address], 04/04/2024 05:50:11 04/03/20 24 04/04/2024 LIPID PANEL , STAND RANDEE triglyceride s 132 mg/dL <150 normal Not Available [facility] [place] [address] [place], [address], 04/04/2024 05:50:11 04/03/20 24 04/04/2024 LIPID PANEL , STAND RANDEE LDL-choleste rol 153 mg/dL _(junior c) high Refer ence range : <100 Jenny able range <100 mg/dL for prima ry preve ntion ; <70 mg/dL for patie nts with CHD or diabe tic patie nts with > or = 2 CHD risk facto rs. LDL-C is now calcu lated using the Thuy mitchell-Hop robert cardonau yohana n, which is a valid ated novel blayne rabago accur acy than the Fried joo equat ion in the estim ation of LDL-C . Thuy mitchell SS et al. HAN. 2013; 310(1 9): 2061- 2068 (http ://ed ucati on.Shiela luu Richard Toland Designss. com/f aq/FA Q164) Not Available [facility] [address] [address], [place], [address], 04/04/2024 05:50:11 04/03/20 24 04/04/2024 LIPID PANEL , STAND RANDEE chol/HDLC ratio 4.4 (calc ) <5.0 normal Not Available [facility] [address] [place], [address], 04/04/2024 05:50:11 04/03/20 24 04/04/2024 LIPID PANEL , STAND RANDEE non HDL cholesterol 179 mg/dL _(junior c) <130 high For patie nts with diabe zee plus 1 major ASCVD risk facto r, treat ing to a non-H DL-C goal of <100 mg/dL (LDL- C of <70 mg/dL ) is kassi salinas optio n. Not Available [address] [place], [address], 04/04/2024 05:50:11 04/03/20 24 04/04/2024 COMPR EHENS JULIANNA METAB OLIC PANEL glucose 82 mg/dL 65-99 normal Fasti ng refer ence inter alex Not Available [address], [address], 04/04/2024 05:50:12 04/03/20 24 04/04/2024 COMPR EHENS JULIANNA METAB OLIC PANEL urea nitrogen (BUN) 7 mg/dL 7-25 normal Not Available [address], [address], 04/04/2024 05:50:12 04/03/20 24 04/04/2024 COMPR EHENS JULIANNA METAB OLIC PANEL creatinine 0.68 mg/dL 0.50-0 .96 normal Not Available [address], [address], 04/04/2024 05:50:12 04/03/20 24 04/04/2024 COMPR EHENS JULIANNA METAB OLIC PANEL eGFR 126 mL/mi n/1.7 3m2 > or = 60 normal Not Available [address], [address], 04/04/2024 05:50:12 04/03/20 24 04/04/2024 COMPR EHENS JULIANNA METAB OLIC PANEL BUN/creatini ne ratio SEE NOTE: (calc ) 6-22 Not Repor juan pablo: BUN and Creat inine are withi n refer ence range . Not Available [address], [address], 04/04/2024 05:50:12 04/03/20 24 04/04/2024 COMPR EHENS JULIANNA METAB OLIC PANEL sodium 138 mmol/ L 135-14 6 normal Not Available [address], [address], 04/04/2024 05:50:12 04/03/20 24 04/04/2024 COMPR EHENS JULIANNA METAB OLIC PANEL potassium 4.6 mmol/ L 3.5-5. 3 normal Not Available [address], [address], 04/04/2024 05:50:12 04/03/20 24 04/04/2024 COMPR EHENS JULIANNA METAB OLIC PANEL chloride 106 mmol/ L 98-110 normal Not Available [address], [address], 04/04/2024 05:50:12 04/03/20 24 04/04/2024 COMPR EHENS JULIANNA METAB OLIC PANEL carbon dioxide 23 mmol/ L 20-32 normal Not Available [address], [address], 04/04/2024 05:50:12 04/03/20 24 04/04/2024 COMPR EHENS JULIANNA METAB OLIC PANEL calcium 9.5 mg/dL 8.6-10 .2 normal Not Available [address], [address], 04/04/2024 05:50:12 04/03/20 24 04/04/2024 COMPR EHENS JULIANNA METAB OLIC PANEL protein, total 7.2 g/dL 6.1-8. 1 normal Not Available [address], [address], 04/04/2024 05:50:12 04/03/20 24 04/04/2024 COMPR EHENS JULIANNA METAB OLIC PANEL albumin 4.5 g/dL 3.6-5. 1 normal Not Available [address], [address], 04/04/2024 05:50:12 04/03/20 24 04/04/2024 COMPR EHENS JULIANNA METAB OLIC PANEL globulin 2.7 g/dL_ (calc ) 1.9-3. 7 normal Not Available [address], [address], 04/04/2024 05:50:12 04/03/20 24 04/04/2024 COMPR EHENS JULIANNA METAB OLIC PANEL albumin/glob ulin ratio 1.7 (calc ) 1.0-2. 5 normal Not Available [address], [address], 04/04/2024 05:50:12 04/03/20 24 04/04/2024 COMPR EHENS JULIANNA METAB OLIC PANEL bilirubin, total 0.8 mg/dL 0.2-1. 2 normal Not Available [address], [address], 04/04/2024 05:50:12 04/03/20 24 04/04/2024 COMPR EHENS JULIANNA METAB OLIC PANEL alkaline phosphatase 81 U/L 31-125 normal Not Available [address], [address], 04/04/2024 05:50:12 04/03/20 24 04/04/2024 COMPR EHENS JULIANNA METAB OLIC PANEL AST 35 U/L 10-30 high Not Available [address], [address], 04/04/2024 05:50:12 04/03/20 24 04/04/2024 COMPR EHENS JULIANNA METAB OLIC PANEL ALT 53 U/L 6-29 high Not Available [address], [address], 04/04/2024 05:50:12 04/03/20 24 04/04/2024 CBC (INCL UDES DIFF/ PLT) white blood cell count 6.2 thous and/u L 3.8-10 .8 normal Not Available [address], [address], 04/04/2024 05:50:13 04/03/20 24 04/04/2024 CBC (INCL UDES DIFF/ PLT) red blood cell count 4.30 timothy on/uL 3.80-5 .10 normal Not Available [address], [address], 04/04/2024 05:50:13 04/03/20 24 04/04/2024 CBC (INCL UDES DIFF/ PLT) hemoglobin 13.6 g/dL 11.7-1 5.5 normal Not Available [address], [address], 04/04/2024 05:50:13 04/03/2004/04/2024 CBC (INCL UDES DIFF/ PLT) hematocrit 41.4 % 35.0-4 5.0 normal Not Available [address], [address], 04/04/2024 05:50:13 04/03/2004/04/2024 CBC (INCL UDES DIFF/ PLT) MCV 96.3 fL 80.0-1 00.0 normal Not Available [address], [address], 04/04/2024 05:50:13 04/03/2004/04/2024 CBC (INCL UDES DIFF/ PLT) MCH 31.6 pg 27.0-3 3.0 normal Not Available [address], [address], 04/04/2024 05:50:13 04/03/20 24 04/04/2024 CBC (INCL UDES DIFF/ PLT) MCHC 32.9 g/dL 32.0-3 6.0 normal Not Available [address], [address], 04/04/2024 05:50:13 04/03/2004/04/2024 CBC (INCL UDES DIFF/ PLT) RDW 12.4 % 11.0-1 5.0 normal Not Available [address], [address], 04/04/2024 05:50:13 04/03/2004/04/2024 CBC (INCL UDES DIFF/ PLT) platelet count 371 thous and/u L 140-40 0 normal Not Available [address], [address], 04/04/2024 05:50:13 04/03/2004/04/2024 CBC (INCL UDES DIFF/ PLT) MPV 9.6 fL 7.5-12 .5 normal Not Available [address], [address], 04/04/2024 05:50:13 04/03/20 24 04/04/2024 CBC (INCL UDES DIFF/ PLT) absolute neutrophils 3286 cells /uL 1500-7 800 normal Not Available [address], [address], 04/04/2024 05:50:13 04/03/2004/04/2024 CBC (INCL UDES DIFF/ PLT) absolute lymphocytes 2387 cells /uL 850-39 00 normal Not Available [address], [address], 04/04/2024 05:50:13 04/03/20 24 04/04/2024 CBC (INCL UDES DIFF/ PLT) absolute monocytes 471 cells /uL 200-95 0 normal Not Available [facility] [address], [address], 04/04/2024 05:50:13 04/03/20 24 04/04/2024 CBC (INCL UDES DIFF/ PLT) absolute eosinophils 37 cells /uL 15-500 normal Not Available [facility] [address], [address], 04/04/2024 05:50:13 04/03/20 24 04/04/2024 CBC (INCL UDES DIFF/ PLT) absolute basophils 19 cells /uL 0-200 normal Not Available [facility] [address], [address], 04/04/2024 05:50:13 04/03/20 24 04/04/2024 CBC (INCL UDES DIFF/ PLT) neutrophils 53 % normal Not Available [facility] [address], [address], 04/04/2024 05:50:13 04/03/20 24 04/04/2024 CBC (INCL UDES DIFF/ PLT) lymphocytes 38.5 % normal Not Available [facility] [address], [address], 04/04/2024 05:50:13 04/03/20 24 04/04/2024 CBC (INCL UDES DIFF/ PLT) monocytes 7.6 % normal Not Available [facility] [address], [address], 04/04/2024 05:50:13 04/03/20 24 04/04/2024 CBC (INCL UDES DIFF/ PLT) eosinophils 0.6 % normal Not Available [facility] [address], [address], 04/04/2024 05:50:13 04/03/20 24 04/04/2024 CBC (INCL UDES DIFF/ PLT) basophils 0.3 % normal Not Available [facility] [address] [place], [address], 04/04/2024 05:50:13 04/03/2004/04/2024 TSH W/REF CHINMAY TO FT4 TSH w/reflex to FT4 2.78 mIU/L normal Refer ence Range > or = 20 Years 0.40- 4.50 Pregn josé Range s First trime ster 0.26- 2.66 Secon d trime ster 0.55- 2.73 Third trime ster 0.43- 2.91 Not Available [facility] [address] [place], [address], 04/04/2024 05:50:13 04/03/2004/04/2024 HEMOG LOBIN A1C hemoglobin [...] the Abbot t Archi tect to the Namoie juan f c503 may have shift ed [...] is not recom joi d. Not Available [facility] [address] [place], [address], 04/04/2024 05:50:14 07/07/20 24 07/07/2024 US, abdom en, limit ed No observ ation record ed. [facility] [address] [place], [address], 07/07/2024 11:36:22 Result Notes None recorded. Problems Name Problem SNOMED Code Status Onset Date Resolution Date Notes Provider Name and Address Organization Details Recorded Time Constipat ion 61869914 Completed Not Available [employer] 3 22:07:21 Painless rectal bleeding 311677251 Completed 04/01/2024 HANH Guillaume [address], [place], [address] , [employer] 4 09:34:15 Internal hemorrhoi ds 30109146 Active Not Available [employer] 3 22:07:22 Contact dermatiti s 24625243 Completed 202204/01/2024 HANH Guillaume [address], [place], [address] , [employer] 4 09:33:54 Upper respirato ry infection 39963737 Completed 202204/01/2024 HANH Guillaume [address], [place], [address] , [facility] [employer] [facility] 4 09:34:22 Obese 770343203 Active 2022 SHARI Oneal [address], [address], [place], [address] , [facility] 3 16:20:34 Hyperlipi demia 22193159 Active 2022 SHARI Oneal [address], [address], [place], [address] , [facility] [employer] [facility] 3 12:15:19 Cough 46910337 Completed 202304/01/2024 [facility] Guillaume [address], [address], [place], [address] , [employer] [facility] 4 09:33:59 Onychomyc osis of toenails 457975095 Completed 202304/01/2024 HANH Guillaume [address], [address], [place], [address] , [employer] [facility] [employer] [facility] 4 09:34:12 Abnormali ty of nail of toe 473515469 Active 2023 Tamy Honeycutt MD [address], [address], [place], [address] , [facility] 4 11:24:51 Ingrowing nail of toe of left foot 03163954896 567195 Active 2023 HANH Guillaume [address], [address], [place], [address] , [employer] [facility] 4 09:49:37 Acute otitis media 7649936 Active 2023 HANH Guillaume [address], [place], [address] , [facility] 4 10:10:19 Dysfuncti on of bilateral eustachia n tubes [id number] [address] Active 2023 HANH Guillaume [address], [place], [address] , [employer] [facility] [employer] 4 08:53:19 Bacterial vaginosis 253296196 Active 2023 HANH Guillaume [address], [address], [place], [address] , [employer] [facility] 4 17:39:44 Candidias is of vagina 72058363 Active 2023 [facility] Guillaume [address], [address], [place], [address] , [employer] [facility] [employer] 4 17:40:03 Right upper quadrant pain 318524319 Active 2024 HANH Guillaume [address], [place], [address] , [employer] 5 08:53:39 Problem Notes None recorded. Procedures Surgical History Date Name Laterality Status Provider Name and Address Organization Details Recorded Time 08/29/19 Cholecystectomy completed Not Available [facility] 09/19/2022 22:06:24 Removal of tonsils completed Not Available [facility] 09/19/2022 22:06:24 extraction of wisdom tooth completed Not Available [facility] 09/19/2022 22:06:24 Imaging Results None recorded. Procedure Notes None [...] BY MOUTH THREE TIMES A DAY UNTIL FINISHED 02/27 completed Not Available Not Available Not Available atorvastati n 40 mg tablet TAKE 1 TABLET BY MOUTH EVERY DAY 04/01 completed Not Available Not Available Not Available doxycycline hyclate 100 mg capsule TAKE 1 CAPSULE BY MOUTH TWICE A DAY WITH FOOD 04/01 completed Not Available Not Available Not Available clindamycin HCl 300 mg capsule 03/17 completed Not Available Not Available Not Available cetirizine 10 mg tablet Take 1 tablet every day by oral route as directed for 30 days. 2023 active Not Available Not Available Not Supaai shanti azithromyci n 250 mg tablet TAKE 2 TABLETS BY MOUTH TODAY, THEN TAKE 1 TABLET DAILY FOR 4 DAYS DIRECTED 04/01 completed Not Available Not Available Not Available fluconazole 150 mg tablet TAKE 1 TABLET BY MOUTH EVERY DAY NEEDED FOR 1 DAY active Not Available Not Available No t Available acetaminoph en 120 mg-codeine 12 mg/5 mL oral solution TAKE 15 ML BY MOUTH ONCE EVERY 4 HOURS NEEDED 03/17 completed Not Available Not Available Not Available hydrocodone 5 mg-acetamin ophen 325 mg tablet TAKE 1 TABLET BY MOUTH EVERY 6 HOURS NEEDED FOR PAIN *MAX DAILY AMOUNT 6 TABLETS* 08/03 completed Not Available Not Available Not Available prednisone 20 mg tablet TAKE 1 TABLET BY MOUTH TWICE A DAY FOR 5 DAYS 04/01 completed Not Available Not Available Not Available Tubersol 5 tub. unit/0.1 mL intradermal injection solution Inject 0.1 mL every day by intraderm al route for 1 day. 04/01 completed Test read --0 mm indur ation --neg ative --Jarek Vu RN Not Available Not Available Not Available metronidazo le 500 mg tablet Take 1 tablet every 12 hours by oral route for 7 days. 06/17 completed Not Available Not Available Not Available acetaminoph en 300 mg-codeine 30 mg tablet 03/17 completed Not Available Not Available Not Available tramadol 50 mg tablet Take 1 tablet every 8 hours by oral route as needed. 06/17 completed Not Available Not Available Not Available triamcinolo ne acetonide 0.1 % topical cream APPLY A THIN LAYER TO THE AFFECTED AREA(S) BY TOPICAL ROUTE 2 TIMES PER DAY 04/01 completed Not Available Not Available Not Available ondansetron 8 mg disintegrat ing tablet Place 1 tablet twice a day by transling ual route as needed. 04/01 completed Not Available Not Available Not Available hydrocortis one acetate 25 mg rectal suppository Insert 1 supposito ry twice a day by rectal route for 14 days. active Not Available Not Available No t Available terbinafine HCl 250 mg tablet TAKE 1 TABLET BY MOUTH EVERY DAY UNTIL FOLLOW UP 04/01 completed Not Available Not Available Not Available ofloxacin 0.3 % ear drops INSTILL 5 DROPS INTO THE RIGHT EAR ONCE DAILY 04/01 completed Not Available Not Available Not Available amoxicillin 875 mg tablet Take 1 tablet every 12 hours by oral route for 10 days. 06/17 completed Not Available Not Available Not Available amitriptyli ne 25 mg tablet 03/17 completed Not Available Not Available Not Available benzonatate 100 mg capsule TAKE 1 CAPSULE BY MOUTH THREE TIMES A DAY 03/17 completed Not Available Not Available Not Available cephalexin 500 mg capsule TAKE 1 CAPSULE BY MOUTH EVERY 6 HOURS active Not Available Not Available No t Available docusate sodium 100 mg capsule TAKE 1 CAPSULE BY MOUTH EVERY DAY 06/17 completed Not Available Not Available Not Available methylpredn isolone 4 mg tablets in a dose pack TAKE 6 TABLETS ON DAY 1 DIRECTED ON PACKAGE AND DECREASE BY 1 TAB EACH DAY FOR A TOTAL OF 6 DAYS active Not Available Not Available No t Available ondansetron 4 mg disintegrat ing tablet Place 2 tablets twice a day by transling ual route as needed for 14 days. 2024 active Not Available Not Available Not Avai lable dicyclomine 10 mg capsule Take 1 capsule 3 times a day by oral route as needed for 10 days. 06/17 completed Not Available Not Available Not Available naproxen 500 mg tablet TAKE 1 TABLET BY MOUTH TWICE A DAY NEEDED FOR PAIN active Not Available Not Available No t Available amoxicillin 875 mg-potassiu m clavulanate 125 mg tablet TAKE 1 TABLET BY MOUTH EVERY 12 HOURS WITH MEALS FOR 5 DAYS active Not Available Not Available No t Available neomycin-po lymyxin-hyd rocort 3.5 mg-10,000 unit/mL-1 % ear drops,susp 04/01 completed Not Available Not Available Not Available DentaGel 1.1 % PLEASE SEE ATTACHED FOR DETAILED DIRECTION S 04/01 completed Not Available Not Available Not Available ciclopirox 0.77 % topical suspension APPLY A THIN LAYER TO FINGERNAI LS BEFORE BEDTIME. 04/01 completed Not Available Not Available Not Available 08/10 (28) 1 mg-20 mcg (21)/75 mg (7) tablet TAKE 1 TABLET BY MOUTH EVERY DAY 06/17 completed Not Available Not Available Not Available biotin 06/17 completed Not Available Not Available Not Available multivitami n 04/01 completed Not Available Not Available Not Available Lo Loestrin Fe 1 mg-10 mcg (24)/10 mcg (2) tablet TAKE 1 TABLET BY MOUTH EVERY DAY 06/17 completed Not Available Not Available Not Available Blisovi 24 Fe 1 mg-20 mcg (24)/75 mg (4) tablet TAKE 1 TABLET BY MOUTH EVERY DAY active Not Available Not Available No t Available BinaxNOW COVID-19 Ag Self Test kit TEST DIRECTED TODAY 06/17 completed Not Available Not Available Not Available Mounjaro 7.5 mg/0.5 mL subcutaneou s pen injector INJECT 7.5 MG EVERY WEEK BY SUBCUTANE OUS ROUTE DIRECTED FOR 28 DAYS. active Not Available Not Available No t Available Mounjaro 5 mg/0.5 mL subcutaneou s pen injector INJECT 5 MG SUBCUTANE OUSLY EVERY WEEK DIRECTED FOR 28 DAYS active Not Available Not Available No t Available Mounjaro 2.5 mg/0.5 mL subcutaneou s pen injector INJECT THE CONTENTS OF 1 PEN UNDER THE SKIN ONCE WEEKLY, DIRECTED active Not Available Not Available No t Available Vitals Date Recorded Body height Provider Name an d Address Organization Details Last Updated DateTime 11/26/2023 165.1 cm Cammie Abad RN [facility] [employer] 11/26/2023 11:32:33 Date Recorded Body height Provider Name an d Address Organization Details Last Updated DateTime 01/07/2023 165.1 cm Cherrie Hdz LPN [facility] 01/07/2023 16:43:11 Date Recorded Body height Body mass index (BMI) Body weight Body temperature Respiratory rate Oxygen saturation Oxygen saturation in Arterial blood by Pulse oximetry Heart rate Systolic And Diastolic Provider Name and Address Organization Details Last Updated DateTime 165.1 cm 31.3 kg/m2 57620.0 7 g 97.2 [degF] 20 /min 98 % 98 % 81 /min 110/70 mm[Hg] Loly Patel RN [facility] 4 09:42:36 Date Recorded Body height Body mass index (BMI) Body weight Body temperature Heart rate Respiratory rate Oxygen saturation Oxygen saturation in Arterial blood by Pulse oximetry Systolic And Diastolic Provider Name and Address Organization Details Last Updated DateTime 4 165.1 cm 28 kg/m2 35498.9 2 g 97.2 [degF] 81 /min 20 /min 98 % 98 % 110/78 mm[Hg] Loly Patel RN [facility] 4 10:03:26 Date Recorded Body height Body mass index (BMI) Body weight Body temperature Heart rate Oxygen saturation Oxygen saturation in Arterial blood by Pulse oximetry Systolic And Diastolic Provider Name and Address Organization Details Last Updated DateTime 3 165.1 cm 39.3 kg/m2 266041. 8 g 97.3 [degF] 95 /min 99 % 99 % 112/74 mm[Hg] Emily otero CMA [facility] 3 16:14:22 Social History Question Answer Notes LastModified by Organizat ion Details LastModified Time Tobacco Smoking Status Never Smoker Estefany Joseluis jones [facility] 06/17/2023 15:56:46 Do You Have An Advance Directive? No [id number] Information not available 09/19/2022 Do You Wear A Helmet When Biking? Yes [email or web address] Information not available 06/17/2023 What Is Your Level Of Caffeine Consumption? Occasional Information not available 04/01/2024 In The 14 Days Before Symptom Onset, Have You Had Close Contact With A Laboratory-confir med COVID-19 While That Case Was Ill? No [email or web address] Information not available 06/17/2023 In The 14 Days Before Symptom Onset, Have You Had Close Contact With A Person Who Is Under Investigation For COVID-19 While That Person Was Ill? No [email or web address] Information not available 06/17/2023 What Type Of Diet Are You Following? REGULAR [id number] Information not available 09/19/2022 What Is The Highest Grade Or Level Of School You Have Completed Or The Highest Degree You Have Received? [id number] [email or web address] Information not available 06/17/2023 Have There Been Any Changes To Your Family Or Social Situation? No [email or web address] Information no t available 06/17/2023 Are There Any Guns Present In Your Home? No Information not available 06/17/2023 Do You Use Insect Repellent Routinely? Yes [email or web address] Information not available 06/17/2023 Where Do You Live? SingleLevelHouse [email or web address] Information not available 06/17/2023 Do You Have A Medical Power Of Lending Activities Supervisor? No Information not available 04/01/2024 How Many Children Do You Have? 0 Information not available 05/20/2024 Do You Have Any Pets? No [email or web address] Information not available 06/17/2023 What Is Your Relationship Status? Single [id number] Information not available 09/19/2022 Do You Use Your Seat Belt Or Car Seat Routinely? Yes [email or web address] Information not available 06/17/2023 Do You Have Smoke And Carbon Monoxide Detectors In Your Home? Yes Information not available 06/17/2023 Are You Passively Exposed To Smoke? No Information no t available 06/17/2023 Are There Any Smokers In Your House? No [email or web address] Information not available 06/17/2023 Do You Participate In Social Media? No [email or web address] Information not available 06/17/2023 Do You Use Sunscreen Routinely? Yes [email or web address] Information not available 06/17/2023 Has Tobacco Cessation Counseling Been Provided? No [email or web address] Information not available 06/17/2023 Have You Recently Traveled Abroad? No [email or web address] Information not available 06/17/2023 Are You Currently In School? No Information not available 06/17/2023 Do You Have Any Dietary Restrictions? No [email or web address] Information not available 06/17/2023 Sex: Unknown Functional Status Question Answer Note LastModified by Organizat ion Details LastModified Time Do you use any illicit or recreational drugs? No [email or web address] Information not available 06/17/2023 Do you or have you ever used any other forms of tobacco or nicotine? No [email or web address] Information not available 06/17/2023 Are you currently employed? Yes Information not available 05/20/2024 What is your occupation? [employer] Information not available 05/20/2024 What is your exercise level? Occasional Information not available 04/01/2024 Mental Status Question Answer Note LastModified by Organization D etails LastModified Time Do you feel stressed (tense, restless, nervous, or anxious, or unable to sleep at night)? [id number] Information not available 05/20/2024 Family History Relationship Description Onset Age of this Age Resolved Age Notes LastModified by Organization Details LastModified Time Mother Hypertensive disorder [id number] Not available 09/19/2022 22:06:25 Maternal Grandmother Malignant tumor of breast Not available 2022 15:56:45 Maternal Grandfather Malignant neoplasm of lung [email or web address] Not available 2022 15:56:46 Paternal Uncle Malignant neoplastic disease unsure of what type of cancer Not available 06/17/2023 15:56:46 Medical History Condition Response BLINDNESS N RHEUMATIC FEVER N KIDNEY STONES N BLADDER PROBLEMS N MRSA N OTHER # 1 N POLIO N LUNG DISEASE/DISORDER N HISTORY OF DRUG ABUSE N RADIATION / CHEMOTHERAPY N COPD N Other # 2 N BLOOD DISEASES N SURGERY N EAR OR HEARING PROBLEMS N MUMPS N SHINGLES N BOWEL PROBLEMS N FEMALE PROBLEMS / INFECTIONS N DEPRESSION (INCLUDING POST ) N FAILED BACK SYNDROME N STROKE/TIA N THYROID DISEASE N ULCERS N BENIGN PROSTATIC HYPERPLASIA N MEASLES N CERVICALGIA N HYPOTENSION N TB SKIN TEST N MYOCARDIAL INFARCTION N PARAPELGIA N OBESITY N GERD/NAUSEA N ANEURYSM N URINARY/BLADDER/KIDNEY PROBLEMS N CORONARY ARTERY DISEASE (CAD) N MENIERE'S DISEASE N Do you have Advance directive? N ADDICTION CONCERNS N ENDOMETRIOSIS N USE OF BLOOD THINNERS N SKIN PROBLEMS N EMPHYSEMA N GASTROINTESTINAL DISORDER N PERIPHERAL ARTERY DISEASE N MUSCLE,JOINT OR BONE PROBLEMS N GASTROINTESTINAL BLEEDING N BLOOD CLOTS N ASTHMA N Abdominal Pain N CATARACTS N ARTERIAL INSUFFICIENCY N ERECTILE DYSFUNCTION N GI PROBLEMS N CHF N Low Testosterone N NEUROPATHY N INFERTILITY N AIDS/HIV N FRACTURES N CHEMOTHERAPY / RADIATION N VISION/EYE PROBLEMS N LIVER DISEASE N MALE HYPOGONADISM N HYPERTENSION N TOURETTE'S N ANXIETY DISORDER N BLOOD TRANSFUSION N ANEMIA/BLOOD DISORDER N CHRONIC EAR INFECTIONS N BRONCHITIS N TUBERCULOSIS N GLAUCOMA N FOOT PROBLEM N DIVERTICULITIS N CHICKENPOX N SLEEP APNEA N BACK INJECTIONS N ALLERGIES/HAYFEVER N INFECTIOUS DISEASE N HEART ARRHYTHMIA N PROSTATE N ESRD N INSOMNIA N HIGH CHOLESTEROL / HYPERLIPIDEMIA N EYE PROBLEMS N HYPERTHYROIDISM N PVD N EATING DISORDER N EDEMA N CHRONIC PAIN SYNDROME N CAROTID BLOCKAGE N CONSTIPATION N BACK / NECK PROBLEMS N HAVE YOU BEEN HOSPITALIZED OR SEEN IN [facility] ER IN THE PAST YEAR ? N ATHEROSCLEROSIS N BREAST PROBLEMS N DIALYSIS N POLYCYSTIC OVARIES N ECZEMA N FIBROMYALGIA N OSTEOPOROSIS N ARTHRITIS N NO SIGNIFICANT PAST MEDICAL HISTORY N APPENDICITIS N DIABETES, TYPE N BAD TEETH N VON WILLIBRAND'S DISEASE N HEARTBURN / REFLUX N ADD/ADHD N AUTISM SPECTRUM DISORDER (ASD) N POST LAMINECTOMY SYNDROME N HEPATITIS / LIVER DISEASE N PULMONARY DISEASE N GOUT N SLEEP DISORDER N ALZHEIMER'S DISEASE N PAIN N HERPES N DEMENTIA N HEADACHES/MIGRAINES N SEIZURES/EPILEPSY N VASCULAR DISEASE N PACEMAKER N DIZZINESS N HEART DISEASE/HEART PROBLEMS N KIDNEY DISEASE N DEVELOPMENTAL OR BEHAVIORAL DISORDERS N MULTIPLE SCLEROSIS N SCARLET FEVER N MENTAL DISORDER/ILLNESS N NEUROPSYCHOLOGICAL N CARDIAC ARRHYTHMIA N CANCER: SPECIFY N PNEUMONIA N ATRIAL FIBRILLATION N Gall Stones N PULMONARY EMBOLISM N AUTOIMMUNE DISEASE N Gynecological History Statement/Question Response Flow Moderate Date of LMP 05/16/2024 Frequency of Cycle (Q days) 28 Dislike of Light during Menstrual Headac he N Do you get headaches during your period N Do your menstrual headaches get severe N Duration of Flow (days) 5 Current Control Method BCPs Age at Menarche 12 Breast Problems no Obstetrics History GPAL:G 0 P 0 0 0 0 Immunizations Vaccine Type Date Status Note Provider Nam e and Address Organization Details Recorded Time Tdap 01/07/2023 completed LUIS Pandey [place] - [facility] 01/07/2023 16:51:27 Past Encounters Encounter ID Performer Location Encounter Start Date Encounter Closed Date Diagnosis/Indication Diagnosis SNOMED-CT Code Diagnosis ICD10 Code Diagnosis Note [id number] Tamy Honeycutt MD [facility] Primary Care [facility] [address] [place] [address] 02/27/2021 00:00:00 02/27/2021 14:21:49 [id number] _ATHN_MIGR ATION_1 _ATHENA_M IGRATION_ DEFAULT_1 _1 , 04/12/2021 00:00:00 04/12/2021 10:35:39 [id number] SHARI Oneal [facility] Primary Care [place] [address] [place] [address] 07/18/2021 00:00:00 07/18/2021 12:08:25 [id number] SHARI Oneal [facility] Primary Care [place] [address] [place] [address] 12/11/2021 00:00:00 12/11/2021 10:21:42 [id number] SHARI Oneal [facility] Primary Care [place] [address] [place] [address] 12/20/2021 00:00:00 12/20/2021 20:43:06 [id number] SHARI Oneal [facility] Primary Care [place] [address] [place] [address] 08/03/2022 00:00:00 08/03/2022 17:47:27 [id number] Tamy Honeycutt MD [facility] Primary Care [place] [address] [place] [address] 12/18/2022 11:08:46 12/18/2022 12:15:12 [id number] Tamy Honeycutt MD [facility] Primary Care [place] [address] [place] [address] 01/07/2023 16:37:31 01/07/2023 16:40:03 [id number] Tamy Honeycutt MD [facility] Primary Care [place] [address] [place] [address] 06/17/2023 15:55:46 06/17/2023 16:49:49 Adult health examination 865838104 Z00.00 Will get routine labs today. Covid vaccines- Tyrell and Tyrell (10/29/20); recommende d to updateFlu vaccine- 04/2023Tet anus vaccine- up to date, 01/07/23 Pap- 2021 wnl; followed by obgyn Recommende d routine eye exams and dental cleanings. Obese 080772904 E66.9 Goal is to be around 180lbs.Dis cussed healthy eating and exercise.W ill also get labs to r/o physiologi c causes.She would like to try mounjaro, will send in script, she is aware PA most likely needed. She has not tried other prescripti on medication s for weight loss. Diabetes m ellitus screening 610930611 Z13.1 Hyperlipid emia screening 704598540 Z13.690 [id number] Tamy Honeycutt MD [facility] Primary Care [address] [place] [address] 11/26/2023 11:30:30 12/17/2023 15:34:32 [id number] West Sanchez MD [address] [address] 04/01/2024 09:21:45 04/01/2024 09:57:54 Ingrowing nail of toe of left foot 9764441859 0329321 L60.0 Hyperlipidemia 65398360 E78.5 Obese 498918129 E66.9 [id number] West Sanchez MD [address] [address] 05/20/2024 09:52:55 05/20/2024 10:16:49 Acute otitis media 9527114 H66.93 Obese 581550063 E66.9 Titrating off of mounjaro Health Concerns Section Related Observation LastModified by Organization Detai ls LastModified Time None Recorded Concern Status LastModified by Organization Details LastModified Time None Recorded Advance Directives Directive N: Payers Insurance Date Sequence Insurance Name Policy Number Policy Monroy Covered Member ID Monroy Member ID Guarantor Name 09/14/2024 1 [employer] [id number] Chiki Kamara [id number] Lillian Kamara Notes Date Note Type Note Provider Name and Address Organization Details Recorded Time 06/17/2023 text/html Pt. here for norma ual physical. She would also like to discuss weight loss. States she has tried all kinds of diets with no good results. She has struggled with weight since she was a child. SHARI Oneal [address] [place] [address], [place] [address], [place], [address], [employer] 06/17/2023 16:38:19 04/01/2024 text/html Lillian Kamara is a 23 year old female patient here today to establish care. She is taking Mounjaro 7.5 mg weekly. She has a history of hyperlipidemia on one lab, she states she was not fasting when she did this. Her triglycerides were 732. Has not been taking atorvastatin. 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 No other symptoms Would like to titrate off of mounjaro HANH Guillaume [address], [place] [address], [place], [address], [employer] [facility] 05/20/2024 10:12:14 OBGyn Episode No OBEpisode recorded.
[2025-02-08 11:30] LABS: INR 1.0; Prothrombin Time 13.6 Seconds (11.1-14.7)
[2025-02-08 11:37] LABS: Iron 87 ug/dL (37-170)
[2025-02-08 11:45] LABS: Immunoglobulin G 1209 mg/dL (700-1600)
[2025-02-08 11:46] LABS: Percent Iron Saturation 21 % (20-50)
[2025-02-08 12:10] LABS: Hepatitis B Surface Antigen Negative (Negative)
[2025-02-08 12:14] LABS: Thyroid Stimulating Hormone Reflex 1.770 uIU/mL (0.465-4.68)
[2025-02-08 12:16] LABS: HAV RESULT Negative (Negative); Hepatitis B Core IgM Result Negative (Negative)
[2025-02-08 12:18] LABS: Ferritin 9.45 ng/mL (6.24-137)
[2025-02-08 16:27] LABS: Hepatitis B Surface Antigen 0.07 S/C
[2025-02-08 16:28] LABS: Hepatitis A Antibody IgM 0.02 s/c; Hepatitis B Core Antibody, IgM 0.04 S/C; Hepatitis B Surface Anti Res Positive
[2025-02-09 07:09] LABS: Hep A Ab, Total Positive (Negative)
[2025-02-10 09:08] LABS: ANA by IFA Rfx Titer/Pattern Positive (.)
[2025-02-11 02:07] LABS: ALT (SGPT) P5P 27 IU/L (0-40); AST (SGOT) P5P 24 IU/L (0-40); Alpha 2-Macroglobulins, Qn 194 mg/dL (110-276); Bilirubin, Total 0.3 mg/dL (0.0-1.2); Cholesterol, Total 203 mg/dL (100-199); GGT 48 IU/L (0-60); Glucose 94 mg/dL (70-99); Triglycerides 129 mg/dL (0-149)
== END 2025-02-08 10:20 | disposition home or self-care (01) ==
LOC: ANHLAB 10:20
PROVIDERS: Visit Provider Nurse Practitioner
DX: R74.8 Abnormal levels of other serum enzymes (principal)
CPT/HCPCS: 36415; 80074; 82103; 82172; 82247; 82390; 82465; 82728; 82784; 82947; 82977; 83010; 83540; 83550; 83883; 84443; 84450; 84460; 84478; 85610; 86015; 86038; 86364; 86376; 86381; 86706; 86708

== ENCOUNTER 2025-02-18 15:28 | Outpatient (CLI) | payer BC, SELFPAY ==
--- OUTSIDE RECORDS SUMMARY | 2025-02-18 15:31 | XMS_ITS | Clinical Summary ---
Author Organization [facility] Address [address] [place] [address] Care Team Providers Care Paint Spray Inspector Name Role Phone Unavailable Primary Care Provider Unavailabl e Allergies No known active allergies Medications No known medications Active Problems No known active problems Social History Tobacco Use Types Packs/Day Years Used Date Smoking Tobacco: Never Assessed Comments Unknown Sex and Gender Information Value Date Recorded Sex Assigned at Not on file Legal Sex Female 10:34 AM RN GYNECOLOGY Gender Identity Not on file Sexual Orientation [...] SMEAR 2022 INFLUENZA VACCINE (#1) 2025 Insurance [facility]
--- OUTSIDE RECORDS SUMMARY | 2025-02-18 15:31 | XMS_ITS | Clinical Summary ---
Author Organization [facility] Address [facility] [place] [address] Care Team Providers Care Trucksmith Name Role Phone Unavailable Primary Care Provider [...]
--- OUTSIDE RECORDS SUMMARY | 2025-02-18 15:31 | XMS_ITS | Clinical Summary ---
Author Organization [facility] [employer] Address [address] [place] [address] Care Team Providers Care Pack Operator Name Role Phone Unavailable Primary Care Provider Unavailabl e Source Comments [facility] [employer],non-owned Affiliates and Associated Physician Practices is amultiple site organization consisting of ambulatory clinics and hospital sitesin [place], [place], [place] and [place]. This disclosure is being madepursuant to the Care Everywhere program and may not contain all information available regarding this patient. Last updated 18.[facility] [employer] Allergies No known active allergies Medications * [...] not taking.Reported on 09/07/2020 Norgestim-Eth Estrad Triphasic (NTF-IU-SCNKDP LLA PO) Active Active Problems Problem Noted [...] on file Legal Sex Female 5:40 AM CHANGE CONTROL COORDINATOR Gender Identity Not on file Sexual Orientation Not on file Last Filed Vital Signs Vital Sign Reading Time Taken Comments Blood Pressure 100/60 09/09/2020 10:12 AM CHANGE CONTROL COORDINATOR Pulse 78 09/09/2020 10:12 AM CHANGE CONTROL COORDINATOR Temperature 36.7 C (98 F) 09/09/2020 10:12 AM CHANGE CONTROL COORDINATOR Respiratory Rate 16 09/09/2020 10:12 AM CHANGE CONTROL COORDINATOR Oxygen Saturation 98% 09/09/2020 10:12 AM CHANGE CONTROL COORDINATOR Inhaled Oxygen Concentration - - Weight 81.6 kg (180 lb) 09/09/2020 10:12 AM CHANGE CONTROL COORDINATOR Height 165.1 cm (5' 5) 09/09/2020 10:12 AM CHANGE CONTROL COORDINATOR Body Mass Index 29.95 09/09/2020 10:12 AM CHANGE CONTROL COORDINATOR Plan of Treatment Health Maintenance Due Date [...]
--- OUTSIDE RECORDS SUMMARY | 2025-02-18 15:31 | XMS_ITS | Clinical Summary ---
Author Organization [facility] [address] Address [address] [place] [address] Care Team Providers Care Charter Boat Captain Name Role Phone Unknown, Notinfile Primary Care [...] on file Legal Sex Female 6:03 AM RETURNED MATERIALS INSPECTOR Gender Identity Not on file Sexual Orientation Not on file Obstetrics History Last Filed Vital Signs Vital Sign Reading Time Taken Comments Blood Pressure 114/78 07/10/2024 4:01 PM RETURNED MATERIALS INSPECTOR Pulse 90 07/10/2024 4:01 PM RETURNED MATERIALS INSPECTOR Temperature 36.6 C (97.9 F) 07/10/2024 4:01 PM RETURNED MATERIALS INSPECTOR Respiratory Rate 20 07/10/2024 4:01 PM RETURNED MATERIALS INSPECTOR Oxygen Saturation 98% 07/10/2024 4:01 PM RETURNED MATERIALS INSPECTOR Inhaled Oxygen Concentration - - Weight 76.2 kg (168 lb) 07/10/2024 4:01 PM RETURNED MATERIALS INSPECTOR Height 165.1 cm (5' 5) 07/27/2022 2:10 PM RETURNED MATERIALS INSPECTOR Body Mass Index 27.96 07/27/2022 2:10 PM RETURNED MATERIALS INSPECTOR Plan of Treatment Health Maintenance Due Date Last Done Comments Cervical Cancer Screening 2001 Depression Screening 2001 Hepatitis C Screening 2001 Meningococcal B Vaccine (1 o f 2 - Standard) 2017 Regular Well Visit/Exam 18-64 2019 DTaP/Tdap/Td Vaccine (7 - Td or Tdap) 03/02/2023 03/02/2013, 10/21/2006, 10/26/2002, Additional history exists Covid-19 Vaccine (2 - 2023-2 5 season) 2024 10/29/2020 Influenza Vaccine (#1) 2025 04/27/2022 Hepatitis B Screening Completed 02/05/2002 , 2001, 2001 Pneumococcal vaccine <65 Completed 003, 2001, 2001, Additional history exists Varicella Vaccines Completed 01/21/2008, 04/20/2002 HPV Vaccines Completed 10/27/2013, 04/21, 03/02/2013 Insurance [employer] [facility] [employer] [place] [place] [employer] [place] [place] Care Teams Charter Boat Captain Relationship Specialty Start Date End Date Unknown, Notinfile PCP - General 07/10/24
--- OUTSIDE RECORDS SUMMARY | 2025-02-18 15:31 | XMS_ITS | Referral Summary ---
Author Organization [facility] [address] Address [address] [place] [phone] Care Team Providers Care Light Air Defense Artillery Crewmember Name Role Phone Unknown, Notinfile Primary Care [...] on file Legal Sex Female 6:03 AM OVER THE HORIZON TARGETING SUPERVISOR Gender Identity Not on file Sexual Orientation Not on file Last Filed Vital Signs Vital Sign Reading Time Taken Comments Blood Pressure 114/78 07/10/2024 4:01 PM OVER THE HORIZON TARGETING SUPERVISOR Pulse 90 07/10/2024 4:01 PM OVER THE HORIZON TARGETING SUPERVISOR Temperature 36.6 C (97.9 F) 07/10/2024 4:01 PM OVER THE HORIZON TARGETING SUPERVISOR Respiratory Rate 20 07/10/2024 4:01 PM OVER THE HORIZON TARGETING SUPERVISOR Oxygen Saturation 98% 07/10/2024 4:01 PM OVER THE HORIZON TARGETING SUPERVISOR Inhaled Oxygen Concentration - - Weight 76.2 kg (168 lb) 07/10/2024 4:01 PM OVER THE HORIZON TARGETING SUPERVISOR Height 165.1 cm (5' 5) 07/27/2022 2:10 PM OVER THE HORIZON TARGETING SUPERVISOR Body Mass Index 27.96 07/27/2022 2:10 PM OVER THE HORIZON TARGETING SUPERVISOR Plan of Treatment Not on file Insurance [employer] [place] [employer] [place] [facility] Care Teams Light Air Defense Artillery Crewmember Relationship Specialty Start Date End Date Unknown, Notinfile PCP - General 07/10/24
[2025-02-18 15:51] LABS: Hematocrit 38.5 % (37.0-47.0); Hemoglobin 12.9 g/dL (12.0-15.0); Immature Granulocyte Percent A 0.2 % (0-0.5); Lymphocytes Absolute Auto 3.33 K/mm3 (0.9-3.2); Mean Corpuscular HGB Conc 33.5 g/dl (32-36); Mean Corpuscular Hemoglobin 30.9 pg (26-34); Mean Corpuscular Volume 92.1 fl (80-100); Nucleated Red Blood Cells Absolute Auto 0.000 K/mm3 (0.0-0.012); Nucleated Red Blood Cells Perc 0.0 % (0.0-0.2); Platelet Count Result 339 k/mm3 (150-375); Red Blood Count 4.18 M/mm3 (4.2-5.4); White Blood Count 6.4 K/mm3 (4.5-10.0)
[2025-02-18 16:03] LABS: Alanine Aminotransferase 30 U/L (6-35); Albumin Level 4.2 g/dL (3.5-5.1); Alkaline Phosphatase 57 U/L (38-126); Amylase 96 U/L (30-110); Aspartate Amino Transferase 39 U/L (14-36); Bilirubin,Total 0.4 mg/dL (0.2-1.3); Lipase 140 U/L (23-300); Total Protein 7.9 g/dL (6.3-8.2)
== END 2025-02-18 15:29 | disposition home or self-care (01) ==
LOC: ANHLAB 15:29
PROVIDERS: Visit Provider Nurse Practitioner
DX: K83.4 Spasm of sphincter of Oddi (principal); R74.8 Abnormal levels of other serum enzymes
CPT/HCPCS: 36415; 80076; 82150; 83690; 85025